=== PATIENT | male | born 1960 | race Caucasian/White ===

== ENCOUNTER → 2018-03-16 14:11 | Outpatient (CLI) | payer BC, SELFPAY ==
--- NOTE | 2018-03-16 14:16 | XR_ITS ---
XR knee RT 3V HISTORY: ITS.REASON: Right knee pain ORDERING PHYSICIAN: RIKY Acuña PATIENT AGE: 57 years COMPARISON: None FINDINGS: No fracture or dislocation. No lytic or blastic change. Normal mineralization. There is decrease in joint space medially with mild osteophyte formation. Minimal spurring is present along the posterior patella. A small bone island involves the lateral femoral condyle. 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
[2018-03-16 15:05] LABS: Basophils % 0.6 % (0.1-2.0); Eosinophils # 0.1 K/mm3 (0.0-0.4); Eosinophils % 1.4 % (0.1-12.0); Hemoglobin 15.6 g/dL (14.1-18.0); Lymphocytes # 1.3 K/mm3 (0.7-4.5); Lymphocytes % 20.5 K/mm3 (10-50); Mean Corpuscular HGB Conc 33.2 g/dL (31.8-35.4); Mean Corpuscular Hemoglobin 31.5 pg (27.0-31.2); Mean Corpuscular Volume 94.9 fl (80-94); Mean Platelet Volume 8.1 fl (7.4-10.4); Monocytes # 0.4 K/mm3 (0.1-1.0); Monocytes % 6.3 % (1.7-9.3); Neutrophils # 4.4 K/mm3 (1.8-7.8); Neutrophils % 71.1 % (37.0-80.0); Platelet Count 220 K/mm3 (142-424); Red Blood Count 4.95 M/mm3 (4.60-6.20); Red Cell Distribution Width 13.5 % (11.5-17.5); White Blood Count 6.2 K/mm3 (4.8-10.8)
[2018-03-16 15:31] LABS: Alanine Aminotransferase 28 U/L (12-78); Albumin Level 3.9 gm/dL (3.4-5.0); Albumin/Globulin Ratio 1.1 (1.1-1.8); Alkaline Phosphatase 76 U/L (46-116); Anion Gap 11.7 mEq/L (5-15); Aspartate Amino Transferase 12 U/L (15-37); Bilirubin,Total 0.3 mg/dL (0.2-1.0); Blood Urea Nitrogen 21 mg/dL (7-18); C-Reactive Protein 3.2 mg/L (0.0-0.9); Calcium 9.2 mg/dL (8.5-10.1); Carbon Dioxide 29 mmol/L (21.0-32.0); Chloride 103 mmol/L (98-107); Creatinine,Serum 1.47 mg/dL (0.70-1.30); Estimated Glomerular Filt Rate 49 ml/min (>60); GFR (African American) 60 ML/MIN (>60); Globulin 3.7 gm/dl (1.3-3.2); Glucose 83 mg/dL (74-106); Potassium 4.7 mmoL/L (3.5-5.1); Sodium 139 mmol/L (136-145); Total Protein,Serum 7.6 gm/dL (6.4-8.2); Uric Acid 6.1 mg/dL (2.6-7.2)
[2018-03-16 16:18] LABS: Erythrocyte Sedimentation Rate 31 mm/hr (0-20)
== END ==
PROVIDERS: PCP Physician Assistant; Visit Provider Physician Assistant
DX: M25.561 Pain in right knee (principal)
CPT/HCPCS: 36415; 73562; 80053; 84550; 85025; 85651; 86140

== ENCOUNTER → 2019-08-15 11:34 | Outpatient (CLI) | payer BC, SELFPAY ==
--- NOTE | 2019-08-15 11:39 | XR_ITS ---
PROCEDURE: XR LUMBAR SPINE MIN 4V CLINICAL INDICATION: Low back pain radiating down left leg COMPARISON: LS5 LUMBAR SPINE 5 VIEWS from 07/20/2016 FINDINGS: There is normal curvature and alignment. All lumbar vertebrae appear intact and disc spaces are well maintained throughout. There are mild hypertrophic facet changes at the L4-5 and L5-S1 levels. The SI joints appear normal. IMPRESSION: Essentially unremarkable study other than very minimal hypertrophic facet changes as noted Dictated by: Dr. Ayush Hanna MD 08/15/2019 11:[address] Ayush Hanna MD in [place] 08/15/2019 11:58
== END ==
PROVIDERS: PCP Physician Assistant; Visit Provider Physician Assistant
DX: M79.605 Pain in left leg (principal); R20.0 Anesthesia of skin; R20.2 Paresthesia of skin
CPT/HCPCS: 72110

== ENCOUNTER 2019-09-12 11:00 | Outpatient (RCR) | payer BC, SELFPAY ==
--- NOTE | 2019-08-29 14:03 | HMH.PTOPEV ---
PT Outpatient Evaluation Rehab PT Outpatient Evaluation Start: 08/29/19 12:48 Freq: Status: Active Protocol: Document 08/29/19 13:49 PHORKONG (Rec: 08/29/19 14:02 PHORNE [id number]) Electronically Signed By Ye Ruvalcaba, PT 08/29/19 13:49 Outpatient Therapy Subjective History Subjective History Pt is 58 yowm who presents witn increased L low back and L LE pain, worse x ~ 1 mo. He reports chronic LBP, but this is worse than he has ever experienced with significant L LE numbness and tingling throughout and in toes 1-3. He reports pain is worse at night and frequently wakes him while sleeping. He had X-ray performed which was unremarkable. He reports PMH of anxiety, depression, kidney stones, and HTN. Chief Complaint Pain,Spasms,Stiff Symptom Type Ache,Sharp,Burning,Numbness, Tingling,Shooting Symptoms Relieved By Heat Symptoms Aggravated By Standing,Bending/Stooping, Lifting Prior Functional Limitations Lifting Current Functional Limitations Lifting,Driving,Sleeping, Recreation Activity,Walking, Bending/Stooping Symptom Description Constant but Variable Level of pain today (0-10) 5 Pain scale - at its worst (0-10) 9 Lumbopelvic Eval Palapation tenderness bilateral lumbar spinal tenderness Yes paraspinal tenderness Yes Lumbar/Sacral Palpation Findings Tenderness Accessory Movement L-spine Vertebrae Accessory Movements Central P/A [place] that Elicit Symptoms L2 bilateral L3 bilateral L4 bilateral L5 bilateral S1 bilateral Range of Motion Lumbar Spine Active Flexion Range of 0-65 Motion (degrees) Lumbar Spine Active Extension Range of 0-5 Motion (degrees) Left Lumbar Spine Lateral Flexion Active 0-10 Range of Motion (degrees) Right Lumbar Spine Lateral Flexion 0-5 Active Range of Motion (degrees) Lumbar Spine ROM Limitations Soft Tissue Tightness,Pain Manual Muscle Test Bilateral Knee Extension Strength Grade 5 Normal Knee Flexion Strength Grade 5 Normal Hip Flexion Strength Grade 5 Normal Hip Abduction Strength Grade 5 Normal Hip
== END 2019-09-12 11:05 | disposition home or self-care (01) ==
LOC: PT 11:00
PROVIDERS: PCP Physician Assistant; Visit Provider Physician Assistant
DX: M54.5 Low back pain (principal); R20.0 Anesthesia of skin; R20.2 Paresthesia of skin
CPT/HCPCS: 97010; 97012; 97014; 97035; 97110; 97163; G0283

== ENCOUNTER 2020-04-20 11:44 | Emergency (ER) | payer BC, SELFPAY ==
[2020-04-20 11:47] VITALS: BP 141/77; PULSE 105; RESP 18; TEMP 37.1; O2SAT 100; BMI 29.8
--- NOTE | 2020-04-20 12:16 | HMH.EDNVD ---
ED Disposition Clinical Impression: Pancreatic cyst, Nausea vomiting and diarrhea Disposition: Home, Self-Care Condition on Discharge: Good Instructions: DI for Vomiting -- Adult Prescriptions: Ondansetron [Zofran 4mg ODT] 4 mg PO Q6 PRN #10 tab.rapdis PRN Reason: Nausea Prescription Printed Referrals: Roseanne Cedeño PA [Primary Care Provider] - - Critical Care Critical Care Time: No Attestation: On 04/20/20, the high probability of a clinically significant, sudden or life threatening deterioration of the following system(s) required my full and direct attention, intervention and personal management. The time I documented below is in addition to time spent performing reported procedures but includes the following listed in this critical care notation. Medical Decision Making - Medical Records Medical records reviewed: Yes: I reviewed the patient's medical records. - Alejandro Inquiry Pt receiving controlled substance: No Vital Signs: 04/20/20 11:47 Temperature 98.8 F Temperature Source Oral Pulse Rate [Left Radial] 105 H Respiratory Rate 18 Blood Pressure [Right Arm] 141/77 H Blood Pressure Mean [Right Arm] 98 Blood Pressure Source [Right Arm] Automatic Cuff Blood Pressure Position [Right Arm] Sitting 02 Sat by Pulse Oximetry 100 Oxygen Delivery Method Room Air - Lab Data Lab Results 04/20/20 12:40: WBC 5.7, RBC 3.29 L, Hgb 11.1 L, Hct 32.8 L, MCV 99.9 H, MCH 33.8 H, MCHC 33.8, RDW 13.4, Plt Count 199, MPV 7.9, Neut % (Auto) 79.8, Lymph % (Auto) 11.2, [place] % (Auto) 6.0, Eos % (Auto) 2.7, Baso % (Auto) 0.3, Neut # (Auto) 4.5, Lymph # (Auto) 0.6 L, [place] # (Auto) 0.3, Eos # (Auto) 0.2, Baso # (Auto) 0.0 04/20/20 12:40: Sodium 141, Potassium 4.4, Chloride 100, Carbon Dioxide 32 H, Anion Gap 13.4, BUN 25 H, Creatinine 1.60 H, Estimated Creat Clear 69, Estimated GFR 44 L, Est GFR ( Amer) 54 L, Glucose 134 H, Calcium 10.0, Total Bilirubin 0.7, AST 24, ALT 23, Alkaline Phosphatase 68, Total Protein 7.7, Albumin 4.4, Globulin 3.3 H, Albumin/Globulin Ratio 1.3, Lipase 63 04/20/20 13:08: Urine Color Yellow, Urine Appearance Clear, Urine pH 6.0, Ur Specific [place] 1.025, Urine Protein Trace, Urine Glucose (UA) Negative, Urine Ketones Negative, Urine Blood Trace-l, Urine Nitrate Negative, Urine Bilirubin Negative, Urine Urobilinogen 0.2, Ur Leukocyte Esterase Negative, Urine RBC Occasional, Urine WBC 3-5, Ur Squamous Epith Cells Occasional, Urine Bacteria None, Hyaline Casts 5-10 Result diagrams: 04/20/20 12:40 04/20/20 12:40 Orders (Tests/Meds): ED MEDICATIONS Discontinued Medications Generic Name Dose Route Start Last Admin Trade Name Freq PRN Reason Stop Dose Admin Sodium Chloride 1,000 mls @ 999 mls/hr 04/20/20 12:15 04/20/20 12:42 Sod Chlor 0.9% 1000ml Bag IV 04/20/20 13:15 999 mls/hr .Q1H1M YANDY Administration Ondansetron HCl 4 mg 04/20/20 12:15 04/20/20 12:41 Zofran 4mg/2ml Vial IV 04/20/20 12:16 4 mg ONCE ONE Administration ORDERS Category Date Time Status CT abdomen pelvis wo con Stat Cat Scan 04/20/20 13:11 Taken - CT Data CT Scan: Abdomen, Pelvis Time Received: 14:46 Medical Decision Narrative: Patient with reassuring labs with no significant signs of anemia or metabolic derangement. No signs of biliary obstruction or elevated lipase that would suggest pancreatitis. CT scan of the abdomen/pelvis shows no obstruction, but does show a cystic structure at the head of the pancreas. This may have caused his vomiting, though it has improved in the emergency department as he has not vomited while here. Tolerating p.o. and discharged home to follow-up outpatient with his primary care provider concerning the pancreatic cyst. Nausea/Vomiting/Diarrhea HPI - General Chief complaint: Nausea/Vomiting/Diarrhea Stated complaint: Vomiting Diarrhea Time Seen by Provider: 04/20/20 12:16 Mode of Arrival: Ambulatory Limitations: No Limitations [place]
[2020-04-20 12:50] LABS: Basophils % 0.3 % (0.1-2.0); Eosinophils # 0.2 K/mm3 (0.0-0.4); Eosinophils % 2.7 % (0.1-12.0); Hematocrit 32.8 % (42.0-52.0); Hemoglobin 11.1 g/dL (14.1-18.0); Lymphocytes # 0.6 K/mm3 (0.7-4.5); Lymphocytes % 11.2 % (10-50); Mean Corpuscular HGB Conc 33.8 g/dL (31.8-35.4); Mean Corpuscular Hemoglobin 33.8 pg (27.0-31.2); Mean Corpuscular Volume 99.9 fl (80-94); Mean Platelet Volume 7.9 fl (7.4-10.4); Monocytes # 0.3 K/mm3 (0.1-1.0); Neutrophils # 4.5 K/mm3 (1.8-7.8); Neutrophils % 79.8 % (37.0-80.0); Platelet Count 199 K/mm3 (142-424); Red Blood Count 3.29 M/mm3 (4.60-6.20); Red Cell Distribution Width 13.4 % (11.5-17.5); White Blood Count 5.7 K/mm3 (4.8-10.8)
[2020-04-20 12:52] LABS: Chloride 100 mmol/L (98-107); Sodium 141 mmol/L (136-145)
[2020-04-20 12:53] LABS: Potassium 4.4 mmoL/L (3.5-5.1)
[2020-04-20 12:55] LABS: Alanine Aminotransferase 23 U/L (12-78); Alkaline Phosphatase 68 U/L (38-126); Anion Gap 13.4 mEq/L (5-15); Aspartate Amino Transferase 24 U/L (17-59); Bilirubin,Total 0.7 mg/dl (0.2-1.3); Blood Urea Nitrogen 25 mg/dl (9-20); Carbon Dioxide 32 mmol/L (22.0-30.0); Creatinine Clearance Estimated 69 mL/min (50-200); Estimated Glomerular Filt Rate 44 ml/min (>60); GFR (African American) 54 ML/MIN (>60); Lipase 63 U/L (23-300)
[2020-04-20 12:56] LABS: Albumin Level 4.4 g/dl (3.5-5.0); Albumin/Globulin Ratio 1.3 (1.1-1.8); Globulin 3.3 g/dL (1.3-3.2); Glucose 134 mg/dl (74-100); Total Protein,Serum 7.7 g/dl (6.3-8.2)
[2020-04-20 13:10] LABS: Microscopic, Urine URINE MICROSCOPIC (MICROSCOPIC)
[2020-04-20 13:11] LABS: Appearance,Urine CLEAR (Clear); Bilirubin,Urine Negative (Negative); Blood, Urine TRACE-L (Negative); Color,Urine YELLOW (Yellow); Glucose,Urine (UA) Negative (Negative); Ketones,Urine Negative (Negative); Leukocyte Esterase,Urine Negative (Negative); Nitrate,Urine Negative (Negative); Protein,Urine TRACE (Negative); Specific Gravity, Urine 1.025 (1.005-1.030); Urobilinogen,Urine 0.2 EU/dl (0.2)
--- NOTE | 2020-04-20 13:11 | CT_ITS ---
PROCEDURE: CT ABDOMEN PELVIS WO CON CLINICAL INDICATION: N/V/D Nausea, vomiting, diarrhea COMPARISON: No exams were available for comparison TECHNIQUE: Axial images obtained with sagittal and coronal reformats. All CT scans at the facility use one or more dose reduction, viz: automated exposure control, ma/kV adjustment per patient size (including targeted exams where dose is matched to indication, i.e. head), or iterative reconstruction technique. FINDINGS: LOWER THORAX: No acute finding ABDOMEN & PELVIS: The liver, spleen, adrenal glands, are unremarkable. There is a nonobstructing 2 mm stone in the lower pole of the right kidney. There are 2 cystic lesions of the pancreas 1 in the region the pancreatic head at 2 cm and 1 in the region of the pancreatic tail at 1.7 cm. No intestinal obstruction or free air. No evidence of appendicitis. No evidence of diverticulitis. No acute bony anomalies. There is a small lucent lesion within the left ilium with sclerotic margin. This measures approximately 5 mm and has a benign appearance. IMPRESSION: 1. There are 2 cystic lesions of the pancreas 1 in the tail and 1 in the head measuring 1.7 and 2 cm respectively. Differential diagnosis includes pancreatic cyst, pancreatic pseudocyst, or pancreatic cystic neoplasm. MRI without and with contrast enhancement and with MRCP may provide further evaluation for characterization. 2. Nonobstructing right nephrolithiasis. 3. Otherwise negative Dictated by: Johnnie Torres MD 04/20/2020 16:11 Johnnie Torres MD in [place] 04/20/2020 16:11
[2020-04-20 13:16] LABS: RBC,Urine Occasional #/hpf (0-3); Squamous Epithelial Cell,Urine Occasional #/hpf (0-5)
[2020-04-20 15:00] VITALS: BP 135/87; PULSE 88; RESP 18; TEMP 37.1; O2SAT 100
== END 2020-04-20 15:01 | disposition home or self-care (01) ==
PROVIDERS: Emergency Provider Emergency Medicine; PCP Physician Assistant
DX: K86.2 Cyst of pancreas (principal); F41.8 Other specified anxiety disorders; I10 Essential (primary) hypertension; K21.9 Gastro-esophageal reflux disease without esophagitis; Z87.442 Personal history of urinary calculi; Z79.899 Other long term (current) drug therapy
CPT/HCPCS: 74176; 80053; 81001; 83690; 85025; 96365; 96375; 99283; J2405

== ENCOUNTER → 2020-06-03 11:16 | Outpatient (CLI) | payer BC, SELFPAY ==
[2020-06-03 12:19] LABS: Anion Gap 12.5 mEq/L (5-15); Blood Urea Nitrogen 13 mg/dl (9-20); Calcium 10.3 mg/dl (8.4-10.2); Carbon Dioxide 31 mmol/L (22.0-30.0); Chloride 102 mmol/L (98-107); Estimated Glomerular Filt Rate 68 ml/min (>60); GFR (African American) 83 ML/MIN (>60); Glucose 127 mg/dl (74-100); Potassium 4.5 mmoL/L (3.5-5.1); Sodium 141 mmol/L (136-145)
== END ==
PROVIDERS: Visit Provider Physician Assistant
DX: Z01.818 Encounter for other preprocedural examination (principal); R11.2 Nausea with vomiting, unspecified
CPT/HCPCS: 36415; 80048

== ENCOUNTER → 2020-06-04 09:16 | Outpatient (CLI) | payer BC, SELFPAY ==
--- NOTE | 2020-06-04 09:17 | MR_ITS ---
PROCEDURE: MR ABDOMEN WO/W CON CLINICAL INDICATION: epigastric pain, pancreatic cyst vs neoplasm CT nausea and vomiting. abnormal ct scan 04-20-20. COMPARISON: CT CT ABDOMEN PELVIS WO CON from 04/20/2020 TECHNIQUE: Routine multiplanar multi echo sequences are performed without and with gadolinium enhancement with MRCP images. FINDINGS: Exam somewhat limited secondary to motion artifact. There are multiple cystic lesions the pancreas including a 1.6 cm cyst at the pancreatic tail and a 2 cm cyst at the head of the pancreas. There are several other smaller cyst located in the body of the pancreas which are less than 1 cm. MRCP images show the cyst to appear to communicate with the main pancreatic duct. The main pancreatic duct does not appear dilated but is slightly irregular in nature. Although the definition is somewhat limited secondary, the cysts do not appear to have any internal septations or wall thickening. No contrast enhancement of the cyst. MRCP images show no ductal dilatation. No evidence of cholelithiasis or choledocholithiasis. There is a small cystic area at the distal aspect of the common bile duct laterally and may represent a duodenal diverticulum. This measures approximately 1 cm. Cannot separate the larger cyst in the pancreatic head region from the pancreatic duct. There are at least 3 small hepatic cyst. IMPRESSION: 1. There are multiple pancreatic cysts noted as described above. These do not enhance and do not appear to contain internal septations or wall thickening. Differential diagnosis would include simple pancreatic cysts, pseudo cyst, branch duct IPMNs. The larger lesion in the head of the pancreas could represent an IPMN. Combination of the above etiologies is also consideration. Suggest 3 month follow-up to confirm short term stability. GI consult may also be in order. Close follow-up is suggested. No solid pancreatic lesions apparent. 2. At least 3 small hepatic cysts are also noted. Dictated by: Johnnie Torres MD 06/11/2020 09:53 Johnnie Torres MD in [place] 06/11/2020 09:53
== END ==
PROVIDERS: PCP Physician Assistant; Visit Provider Physician Assistant
DX: K86.2 Cyst of pancreas (principal); K86.9 Disease of pancreas, unspecified; R10.13 Epigastric pain
CPT/HCPCS: 74183; 76376; A9576

== ENCOUNTER 2020-07-17 09:30 | Outpatient (CLI) | payer BC, SELFPAY ==
[2020-07-17 09:36] VITALS: BMI 28.5
[2020-07-17 09:48] VITALS: BP 115/49; PULSE 68; RESP 18; TEMP 36.6; O2SAT 99
[2020-07-17 09:57] LABS: Microscopic, Urine URINE MICROSCOPIC (MICROSCOPIC)
[2020-07-17 10:01] LABS: Appearance,Urine CLEAR (Clear); Bilirubin,Urine Negative (Negative); Blood, Urine Negative (Negative); Color,Urine YELLOW (Yellow); Glucose,Urine (UA) TRACE (Negative); Ketones,Urine Negative (Negative); Leukocyte Esterase,Urine Negative (Negative); Nitrate,Urine Negative (Negative); PH,Urine 5.5 (5.0-8.5); Protein,Urine TRACE (Negative); Specific Gravity, Urine >= 1.030 (1.005-1.030); Urobilinogen,Urine 0.2 EU/dl (0.2)
[2020-07-17 10:07] LABS: Chloride 97 mmol/L (98-107); Sodium 138 mmol/L (136-145)
[2020-07-17 10:08] VITALS: BP 119/52; PULSE 69; RESP 18; O2SAT 99
[2020-07-17 10:08] LABS: Potassium 4.6 mmoL/L (3.5-5.1)
[2020-07-17 10:10] LABS: Alanine Aminotransferase 33 U/L (12-78); Alkaline Phosphatase 84 U/L (38-126); Amylase 54 U/L (30-110); Anion Gap 13.6 mEq/L (5-15); Aspartate Amino Transferase 38 U/L (17-59); Bilirubin,Total 0.9 mg/dl (0.2-1.3); Blood Urea Nitrogen 43 mg/dl (9-20); Carbon Dioxide 32 mmol/L (22.0-30.0); Creatinine Clearance Estimated 32 mL/min (50-200); Estimated Glomerular Filt Rate 19 ml/min (>60); GFR (African American) 23 ML/MIN (>60)
[2020-07-17 10:11] LABS: Albumin Level 4.8 g/dl (3.5-5.0); Albumin/Globulin Ratio 1.5 (1.1-1.8); Calcium 9.9 mg/dl (8.4-10.2); Globulin 3.3 g/dL (1.3-3.2); Glucose 140 mg/dl (74-100); Lipase 159 U/L (23-300); Total Protein,Serum 8.1 g/dl (6.3-8.2)
[2020-07-17 10:16] LABS: Basophils % 0.3 % (0.1-2.0); Eosinophils # 0.3 K/mm3 (0.0-0.4); Eosinophils % 2.1 % (0.1-12.0); Hematocrit 41.3 % (42.0-52.0); Hemoglobin 13.8 g/dL (14.1-18.0); Mean Corpuscular HGB Conc 33.4 g/dL (31.8-35.4); Mean Corpuscular Hemoglobin 32.8 pg (27.0-31.2); Mean Corpuscular Volume 98.3 fl (80-94); Mean Platelet Volume 8.6 fl (7.4-10.4); Monocytes # 0.5 K/mm3 (0.1-1.0); Monocytes % 4.3 % (1.7-9.3); Neutrophils # 10.2 K/mm3 (1.8-7.8); Neutrophils % 85.4 % (37.0-80.0); Platelet Count 266 K/mm3 (142-424); White Blood Count 11.9 K/mm3 (4.8-10.8)
[2020-07-17 10:20] VITALS: BP 114/51; PULSE 64; RESP 18; O2SAT 98
[2020-07-17 10:21] LABS: MANUAL DIFFERENTIAL MANUAL DIFFERENTIAL (MANUAL DIFF)
--- NOTE | 2020-07-17 10:31 | PC.NURSE ---
07/17/20-1010-cmp lab results noted and pt's creatinine 3.30, which is elevated. Spoke with Roseanne Cedeño APRN, she reports that this is abnormal for this pt and that she wants him sent to the ER for a full workup. Report called to Brielle Garcia RN in the ER and updated her on care provided, medications given, and pt condition. Explained change in poc to pt, pt agreeable to this and pt transferred to ER, rm 5 per wc with Darrion CASH.
[2020-07-17 10:38] LABS: Eosinophils % 2 % (0-3); Lymphocytes % 10 % (10-50); Monocytes % 8 % (2-9); Neutrophils % 80 % (42-76); Platelet Estimate Normal; RBC Morphology Normal; Total Cells Counted 100
[2020-07-17 10:49] LABS: RBC,Urine Occasional #/hpf (0-3)
[2020-07-17 10:50] LABS: Squamous Epithelial Cell,Urine Occasional #/hpf (0-5)
== END 2020-07-17 10:20 | disposition other institution (70) ==
LOC: INF 09:32
PROVIDERS: PCP Physician Assistant; Visit Provider Physician Assistant
DX: E86.0 Dehydration (principal)
CPT/HCPCS: 80053; 81001; 82150; 83690; 85007; 85025; J1956; J2405

== ENCOUNTER 2020-07-17 10:32 | Observation (INO) | payer BC, SELFPAY ==
[2020-07-17] VITALS (10 sets, daily range): BP systolic 102–132; BP diastolic 48–86; PULSE 54–82; RESP 15–20; TEMP 36.7–36.9; O2SAT 92–97; BMI 28.5; BMI 28.9
--- NOTE | 2020-07-17 10:53 | CT_ITS ---
PROCEDURE: CT ABDOMEN PELVIS WO CON CLINICAL INDICATION: abdominal pain, pancreatic cysts Abdominal pain with nausea vomiting and diarrhea COMPARISON: CT CT ABDOMEN PELVIS WO CON from 04/20/2020 MR MR ABDOMEN WO/W CON from 06/04/2020 TECHNIQUE: Axial images obtained with sagittal and coronal reformats. All CT scans at the facility use one or more dose reduction, viz: automated exposure control, ma/kV adjustment per patient size (including targeted exams where dose is matched to indication, i.e. head), or iterative reconstruction technique. FINDINGS: LOWER THORAX: There are mild atelectatic changes in the left lung base ABDOMEN & PELVIS: There are few subtle areas of decreased attenuation within the the with right and left hepatic lobes possibly due to hepatic cysts. Consider follow-up to confirm stability. Gallbladder, spleen, adrenal glands, and kidneys show no acute finding. Isodense lesions once again noted at the pancreatic tail rounded in nature at 2 cm and in the head of the pancreas at 1.8 cm consistent with cystic lesions of the pancreas which appear similar when compared to 06/04/2020 MRI. No intestinal obstruction or free air. No evidence of appendicitis or diverticulitis. No pelvic mass or abnormal fluid collection. There are mild degenerative changes of the lumbar spine and hips. IMPRESSION: 1. No acute finding. 2. No change in the pancreatic cystic lesions. No evidence of acute pancreatitis. 3. Scattered subtle hypodensities of the liver which may represent hepatic cysts Dictated by: Johnnie Torres MD 07/17/2020 11:55 Johnnie Torres MD in [place] 07/17/2020 11:55
--- NOTE | 2020-07-17 10:54 | XR_ITS ---
PROCEDURE: XR CHEST PORTABLE CLINICAL HISTORY: soa Shortness of air COMPARISON: No exams were available for comparison FINDINGS: The cardiomediastinal silhouette and pulmonary vascularity are within normal limits. The lungs are clear without infiltrates, suspicious nodules, or pleural effusions. There is calcified granuloma in the left upper lobe No acute bony abnormalities. IMPRESSION: No acute findings. Dictated by: Johnnie Torres MD 07/17/2020 15:29 Johnnie Torres MD in [place] 07/17/2020 15:29
--- NOTE | 2020-07-17 10:55 | PC.NURSE ---
spo2 88-89% on ra while resting in stretcher. dr hernandez notified. new orders received.
--- NOTE | 2020-07-17 10:56 | HMH.EDGENADL ---
ED Disposition Clinical Impression: Acute renal failure Disposition: Admitted As Inpatient Condition on Discharge: Good - Critical Care Critical Care Time: No Attestation: On 07/17/20, the high probability of a clinically significant, sudden or life threatening deterioration of the following system(s) required my full and direct attention, intervention and personal management. The time I documented below is in addition to time spent performing reported procedures but includes the following listed in this critical care notation. Medical Decision Making - Medical Records Medical records reviewed: Yes: I reviewed the patient's medical records. - Alejandro Inquiry Pt receiving controlled substance: No Vital Signs: 07/17/20 10:32 07/17/20 11:08 07/17/20 12:59 Temperature 98.1 F Temperature Source Oral Pulse Rate [Right Radial] 72 80 82 Respiratory Rate 17 18 20 Blood Pressure [Right Arm] 123/62 102/54 L 132/86 Blood Pressure Mean [Right Arm] 82 70 101 Blood Pressure Source [Right Arm] Automatic Cuff Automatic Cuff Blood Pressure Position [Right Arm] Sitting Sitting 02 Sat by Pulse Oximetry 94 L 93 L 97 Oxygen Delivery Method Room Air Room Air Room Air - Lab Data Lab Results 07/17/20 12:30: Sodium 137, Potassium 4.7, Chloride 100, Carbon Dioxide 30, Anion Gap 11.7, BUN 43 H, Creatinine 3.00 H, Estimated Creat Clear 35, Estimated GFR 21 L, Est GFR ( Amer) 26 L, Glucose 120 H, Calcium 8.9 D Result diagrams: 07/17/20 12:30 Orders (Tests/Meds): ED MEDICATIONS Generic Name Dose Route Start Last Admin Trade Name Freq PRN Reason Stop Dose Admin Acetaminophen 650 mg 07/17/20 13:06 Acetaminophen 325mg Tab PO 08/16/20 13:05 Q4HP PRN As Needed for Fever or Pain Sodium Chloride 1,000 mls @ 999 mls/hr 07/17/20 13:00 Sod Chlor 0.9% 1000ml Bag IV 07/17/20 14:00 .Q1H1M YANDY Sodium Chloride 1,000 mls @ 125 mls/hr 07/17/20 13:15 Sod Chlor 0.9% 1000ml Bag IV 08/16/20 13:14 .Q8H YANDY Ondansetron HCl 4 mg 07/17/20 13:06 Ondansetron 4mg/2ml Vial IV 08/16/20 13:05 Q8HP PRN Nausea ORDERS Category Date Time Status XR chest portable Stat Exams 07/17/20 10:54 Taken Basic Metabolic Panel AMLAB Lab 07/18/20 06:00 Ordered Covid-19 IgG/IgM ([facility]) Stat Lab 07/17/20 09:40 Received Medical Decision Narrative: Patient presents with nonspecific abdominal pain and hx of pancreatitic cysts. Has had n/v, not acute abdomen on exam, ct a/p ordered, Labs are ordered. Levaquin was started per recommendation of primary care physician and IV fluids have been given as well. Chest x-ray was obtained as well. Doubt pulmonary embolism or acute myocardial infarction based on symptoms. CT abdomen pelvis shows no evidence of diverticulitis or abdominal infection. Discontinued Levaquin as white blood cell count was normal as well. IV fluid bolus given and creatinine did improve to 3.0 however still has acute renal failure. Discussed case with Dr. Krista douglas and Ravinder and recommend admission for continued IV fluids. Another bolus of IV fluids was given and drip was started as well. General Adult HPI - General Chief complaint: Nausea/Vomiting/Diarrhea Stated complaint: vomiting Time Seen by Provider: 07/17/20 13:00 Mode of Arrival: Wheelchair Limitations: No Limitations Description of Symptoms (Recalled from ER Triage Doc. by RN): pt reports to ed from infusion. pt was sent to infusion for fluids and levaquin iv ordered by ravinder donato. lab work done due to c/o vomiting/nausea. pt creatinine found to be 3.3. pt sent to ed for further evaluation. - History of Present Illness HPI narrative: 59 yo M with hx pancreatic cysts presents with abdominal pain and n/v for a few weeks. He has no hematemesis or diarrhea. No fever or chills. He says he has not been able to eat or drink. He saw his PCP this am who sent him to the ED for dehydration, creatinine was 3.3, las
--- NOTE | 2020-07-17 12:30 | PC.NURSE ---
bmp drawn and to lab for resulting
[2020-07-17 12:40] LABS: Chloride 100 mmol/L (98-107); Potassium 4.7 mmoL/L (3.5-5.1); Sodium 137 mmol/L (136-145)
[2020-07-17 12:43] LABS: Anion Gap 11.7 mEq/L (5-15); Blood Urea Nitrogen 43 mg/dl (9-20); Carbon Dioxide 30 mmol/L (22.0-30.0); Creatinine Clearance Estimated 35 mL/min (50-200); Estimated Glomerular Filt Rate 21 ml/min (>60); GFR (African American) 26 ML/MIN (>60); Glucose 120 mg/dl (74-100)
[2020-07-17 12:44] LABS: Calcium 8.9 mg/dl (8.4-10.2)
--- NOTE | 2020-07-17 12:59 | PC.NURSE ---
Dr Chester speaking with Roseanne LAN
[2020-07-17 13:24] LABS: Coronavirus 19 IgG Antibody Negative (Negative); Coronavirus 19 IgM Antibody Negative (Negative)
--- NOTE | 2020-07-17 14:04 | PC.NURSE ---
report given to charisma marks from second floor at this time.
--- NOTE | 2020-07-17 14:16 | HMH.PHAINT ---
home medication reconciliation completed using list from Jordy Castellon
--- NOTE | 2020-07-17 14:22 | HMH.PHAVTE ---
[facility] VTE Monitoring - Patient Demographics Admission date: 07/17/20 Report Date: 07/17/20 Time: 14:22 Allergies/Adverse Reactions: Patient Allergies prednisone Allergy (Intermediate, Verified 07/17/20 10:36) makes mouth numb Height: 1.83 m Weight: 95.254 kg Patient Problems: Current Active Problems Acute renal failure (Acute) - VTE Risk Labs: VTE Related Lab Results BUN 43 mg/dl (9-20) H 07/17/20 12:30 Creatinine 3.00 mg/dl (0.66-1.25) H 07/17/20 12:30 Estimated Creat Clear 35 mL/min (50-200) 07/17/20 12:30 Clinical Trial Participant: No - Prophylaxis VTE Prophylaxis Ordered?: Yes Types of VTE Prophylaxis: TEDS Knee High
--- NOTE | 2020-07-17 17:22 | PC.NURSE ---
A&OX4. PT HAS TOLERATED RA THUS FAR. RESPIRATIONS REGULAR AND UNLABORED. LUNG SOUNDS BILATERALLY CLEAR. NO COUGH NOTED. NO EDEMA NOTED. ACTIVE BOWEL SOUNDS HEARD IN ALL 4 QUADRANTS. SOFT AND NONTENDER ABDOMEN. LAST BM REPORTED THIS AM. HAND DAMAGE INSIDE ADJUSTER EQUAL. +2 PULSES NOTED THROUGHOUT. PT HAS HAD NO REPORTS OF PAIN, SOB, OR NAUSEA THUS FAR. PT HAS REMAINED FEBRILE. PT REFUSED TEDS. NS INFUSING AT 125ML/HR. PT IS CURRENTLY LYING IN BED WITH CALL LIGHT WITHIN REACH. BED IN LOWEST POSITION. VSS. WILL CONTINUE TO MONITOR.
--- NOTE | 2020-07-17 20:08 | HMH.HP ---
*Admission Date: 07/17/20 *Chief complaint: vomiting *History of present illness: this pt has had vomiting yo M with hx pancreatic cysts presents with abdominal pain and n/v for a few weeks. He has no hematemesis or diarrhea. No fever or chills. He says he has not been able to eat or drink. He saw his PCP this am who sent him to the ED for dehydration, creatinine was 3.3, last baseline was normal. He has no other complaints.he had been seen by pcp and attempted op treatment eports to ed from infusion. pt was sent to infusion for fluids and levaquin iv ordered by ravinder donato. lab work done due to c/o vomiting/nausea. pt creatinine found to be 3.3. pt sent to ed for further evaluation.he was noted to have continued sx and was admitted for eval and treatment [facility] History I have reviewed the patient's past medical history: Yes Medical History: Reports:: Anxiety, Depression, Hypertension, Kidney Stones Denies:: Cancer, Diabetes Mellitus Type 1, Diabetes Mellitus Type 2, MRSA *Have you ever received a pneumonia vaccine?: Yes *Have you received a flu vaccine this season?: Yes Other Surgeries: Yes: Colonoscopy Amputation: No Fractures: No - *Social History Last grade of school completed: High school graduate Smoking Status: Never smoker Alcohol Intake: never Substance Use Type: denies use *Occupational Status:: disabled Housing: house Household Members: significant other *Travel in the last 8 weeks: None - Psychiatric History Pschychiatric History:: Reports:: Anxiety, Depression Family Hx:: No significant family history Review of Systems - Review of Systems Review of systems:: pertinent systems reviewed and negative unless documented below - Constitutional Denies fever(s) - ENT Denies sore throat - *Cardiovascular Denies chest pain - *Respiratory Denies cough - *Gastrointestinal Reports nausea, Reports vomiting - *Genitourinary Denies blood in urine - *Musculoskeletal Denies joint swelling - Integumentary/Breasts Denies rash - *Neurologic Denies abnormal walking, Denies abnormal speech - Psychiatric Denies confusion Meds Home Medications Medication Instructions Recorded Confirmed Type tizanidine 4 mg tablet 4 mg PO TID PRN #90 tab 08/17/18 07/17/20 Rx Gabapentin [Neurontin 800mg Tab] 600 mg PO TID 07/17/20 07/17/20 History Hydrocodone/Acetaminophen 1 each PO Q6HP PRN 07/17/20 07/17/20 History [Hydrocodon-Acetaminophn 10-325] Lisinopril/Hydrochlorothiazide 1 tab PO DAILY 07/17/20 07/17/20 History [Lisinopril-Hctz 10-12.5 mg Tab] Promethazine HCl [Phenergan 25mg 25 mg PO Q6HP PRN 07/17/20 07/17/20 History tab] Allergies Allergy/AdvReac Type Severity Reaction Status Date / Time prednisone Allergy Intermediate makes Verified 07/17/20 10:36 mouth numb Exam Vital signs and Labs for Last 24 Hours: Temp Pulse Resp BP Pulse Ox 98.1 F 57 L 17 111/55 L 96 07/17/20 16:00 07/17/20 16:00 07/17/20 16:00 07/17/20 16:00 07/17/20 16:00 Laboratory Results - last 24 hr 07/17/20 09:40: SARS-CoV-2 IgG Ab (Rapid) Negative, SARS-CoV-2 IgM Ab (Rapid) Negative 07/17/20 12:30: Sodium 137, Potassium 4.7, Chloride 100, Carbon Dioxide 30, Anion Gap 11.7, BUN 43 H, Creatinine 3.00 H, Estimated Creat Clear 35, Estimated GFR 21 L, Est GFR ( Amer) 26 L, Glucose 120 H, Calcium 8.9 D I & O for Last 24 hours: Intake & Output 07/15/20 07/16/20 07/17/20 07/18/20 11:59 11:59 11:59 11:59 Intake Total 1266 / 1266 Balance 1266 / 1266 Weight 210 lb 213 lb 5 oz - Constitutional no acute distress - *Routine HEENT Exam Head: Present: normocephalic Eye: Present: EOMI, PERRL ENT: Present: mucous membranes dry - *Routine Neck Exam Present: supple. Absent: JVD - *Routine Respiratory Exam Present: CTA bilaterally - *Routine Cardiovascular Exam Present: RRR, murmur - *Routine Abdominal Exam Present: soft, tenderness. Absent: distended, rebound
[2020-07-17 22:08] LABS: Basophils % 0.3 % (0.1-2.0); Eosinophils # 0.3 K/mm3 (0.0-0.4); Eosinophils % 4.1 % (0.1-12.0); Hematocrit 40.8 % (42.0-52.0); Hemoglobin 13.5 g/dL (14.1-18.0); Lymphocytes # 1.3 K/mm3 (0.7-4.5); Lymphocytes % 19.4 % (10-50); Mean Corpuscular HGB Conc 33.1 g/dL (31.8-35.4); Mean Corpuscular Hemoglobin 32.7 pg (27.0-31.2); Mean Corpuscular Volume 98.8 fl (80-94); Mean Platelet Volume 8.3 fl (7.4-10.4); Monocytes # 0.4 K/mm3 (0.1-1.0); Monocytes % 6.5 % (1.7-9.3); Neutrophils # 4.8 K/mm3 (1.8-7.8); Neutrophils % 69.9 % (37.0-80.0); Platelet Count 206 K/mm3 (142-424); Red Blood Count 4.13 M/mm3 (4.60-6.20); Red Cell Distribution Width 13.2 % (11.5-17.5); White Blood Count 6.8 K/mm3 (4.8-10.8)
[2020-07-17 22:29] LABS: Chloride 99 mmol/L (98-107); Sodium 138 mmol/L (136-145)
[2020-07-17 22:30] LABS: Potassium 4.6 mmoL/L (3.5-5.1)
[2020-07-17 22:32] LABS: Alanine Aminotransferase 36 U/L (12-78); Albumin Level 4.6 g/dl (3.5-5.0); Alkaline Phosphatase 72 U/L (38-126); Anion Gap 12.6 mEq/L (5-15); Aspartate Amino Transferase 43 U/L (17-59); Bilirubin,Direct 0.3 mg/dl (0.0-0.4); Bilirubin,Indirect 0.4 mg/dL (0.0-0.9); Bilirubin,Total 0.7 mg/dl (0.2-1.3); Bilirubin,Unconjugated 0.3 mg/dL (0.0-1.1); Blood Urea Nitrogen 39 mg/dl (9-20); Calcium 9.1 mg/dl (8.4-10.2); Carbon Dioxide 31 mmol/L (22.0-30.0); Creatinine Clearance Estimated 45 mL/min (50-200); Estimated Glomerular Filt Rate 28 ml/min (>60); GFR (African American) 34 ML/MIN (>60); Glucose 106 mg/dl (74-100); Total Protein,Serum 7.7 g/dl (6.3-8.2)
[2020-07-18 04:00] VITALS: BP 118/62; PULSE 76; RESP 18; TEMP 36.9; O2SAT 97
[2020-07-18 05:25] VITALS: BMI 28.6
--- NOTE | 2020-07-18 05:47 | PC.NURSE ---
pt has rested well t/o shift, does complain this morning of some nausea, treated per MAR, no complaints of SOA or chest pain, VSS
[2020-07-18 08:00] VITALS: BP 143/81; PULSE 56; RESP 16; TEMP 36.5; O2SAT 97
[2020-07-18 08:00] LABS: Chloride 103 mmol/L (98-107); Sodium 138 mmol/L (136-145)
[2020-07-18 08:07] LABS: Blood Urea Nitrogen 32 mg/dl (9-20); Calcium 9.2 mg/dl (8.4-10.2); Carbon Dioxide 32 mmol/L (22.0-30.0); Creatinine Clearance Estimated 63 mL/min (50-200); Estimated Glomerular Filt Rate 41 ml/min (>60); GFR (African American) 50 ML/MIN (>60); Glucose 127 mg/dl (74-100)
[2020-07-18 09:00] VITALS: O2SAT 97
--- NOTE | 2020-07-18 09:22 | HMH.DCSUM ---
General - General Admission date:: 07/17/20 Discharge date: 07/18/20 HPI HPI: this pt has had vomiting yo M with hx pancreatic cysts presents with abdominal pain and n/v for a few weeks. He has no hematemesis or diarrhea. No fever or chills. He says he has not been able to eat or drink. He saw his PCP this am who sent him to the ED for dehydration, creatinine was 3.3, last baseline was normal. He has no other complaints.he had been seen by pcp and attempted op treatment eports to ed from infusion. pt was sent to infusion for fluids and levaquin iv ordered by ravinder donato. lab work done due to c/o vomiting/nausea. pt creatinine found to be 3.3. pt sent to ed for further evaluation.he was noted to have continued sx and was admitted for eval and treatment Hospital Course Hospital Course: Laboratory Tests 07/17/20 07/17/20 07/17/20 09:40 12:30 21:40 WBC 6.8 D RBC 4.13 L Hgb 13.5 L Hct 40.8 L MCV 98.8 H MCH 32.7 H MCHC 33.1 RDW 13.2 Plt Count 206 MPV 8.3 Neut % (Auto) 69.9 Lymph % (Auto) 19.4 [place] % (Auto) 6.5 Eos % (Auto) 4.1 Baso % (Auto) 0.3 Neut # (Auto) 4.8 Lymph # (Auto) 1.3 [place] # (Auto) 0.4 Eos # (Auto) 0.3 Baso # (Auto) 0.0 Sodium 137 Potassium 4.7 Chloride 100 Carbon Dioxide 30 Anion Gap 11.7 BUN 43 H Creatinine 3.00 H Estimated Creat Clear 35 Estimated GFR 21 L Est GFR ( Amer) 26 L Glucose 120 H Calcium 8.9 D Total Bilirubin Direct Bilirubin Conjugated Bilirubin Indirect Bilirubin Unconjugated Bilirubin AST ALT Alkaline Phosphatase Total Protein Albumin SARS-CoV-2 IgG Ab (Rapid) Negative SARS-CoV-2 IgM Ab (Rapid) Negative 07/17/20 07/18/20 21:40 07:32 WBC RBC Hgb Hct MCV MCH MCHC RDW Plt Count MPV Neut % (Auto) Lymph % (Auto) [place] % (Auto) Eos % (Auto) Baso % (Auto) Neut # (Auto) Lymph # (Auto) [place] # (Auto) Eos # (Auto) Baso # (Auto) Sodium 138 138 Potassium 4.6 5.0 Chloride 99 103 Carbon Dioxide 31 H 32 H Anion Gap 12.6 8.0 BUN 39 H 32 H Creatinine 2.40 H 1.70 H D Estimated Creat Clear 45 63 Estimated GFR 28 L 41 L Est GFR ( Amer) 34 L D 50 L D Glucose 106 H 127 H Calcium 9.1 9.2 Total Bilirubin 0.7 Direct Bilirubin 0.3 Conjugated Bilirubin 0.0 Indirect Bilirubin 0.4 Unconjugated Bilirubin 0.3 AST 43 ALT 36 Alkaline Phosphatase 72 Total Protein 7.7 Albumin 4.6 SARS-CoV-2 IgG Ab (Rapid) SARS-CoV-2 IgM Ab (Rapid) ct abd pelvis:FINDINGS: LOWER THORAX: There are mild atelectatic changes in the left lung base ABDOMEN & PELVIS: There are few subtle areas of decreased attenuation within the the with right and left hepatic lobes possibly due to hepatic cysts. Consider follow-up to confirm stability. Gallbladder, spleen, adrenal glands, and kidneys show no acute finding. Isodense lesions once again noted at the pancreatic tail rounded in nature at 2 cm and in the head of the pancreas at 1.8 cm consistent with cystic lesions of the pancreas which appear similar when compared to 06/04/2020 MRI. No intestinal obstruction or free air. No evidence of appendicitis or diverticulitis. No pelvic mass or abnormal fluid collection. There are mild degenerative changes of the lumbar spine and hips. IMPRESSION: 1. No acute finding. 2. No change in the pancreatic cystic lesions. No evidence of acute pancreatitis. 3. Scattered subtle hypodensities of the liver which may represent hepatic cysts chest x ray: no acute findings Today pt states he is feeling better was able to eat breakfast and keep it down. cre 1.7 this am. will dc home with recommendations: -increase fluids -stop lisinopril/htcz -follow up with Ravinder wednesday for repeat bmp on wednesday - zofran for nausea -follow up with Dr. Perdomo as scheduled Obj
== END 2020-07-18 11:58 | disposition home or self-care (01) ==
LOC: ER 10:37 → 2ND 13:16
PROVIDERS: Admitting Provider Emergency Medicine; Emergency Provider Emergency Medicine; Visit Provider Emergency Medicine
DX: N17.9 Acute kidney failure, unspecified (principal); K86.2 Cyst of pancreas; I10 Essential (primary) hypertension
CPT/HCPCS: 36415; 71045; 74176; 80048; 80053; 80076; 81001; 82150; 83690; 85007; 85025; 86328; 96365; 99284; G0378; J1956; J2405

== ENCOUNTER → 2020-07-22 17:29 | Outpatient (CLI) | payer BC, SELFPAY ==
[2020-07-22 20:16] LABS: Anion Gap 10.2 mEq/L (5-15); Blood Urea Nitrogen 14 mg/dl (9-20); Calcium 9.5 mg/dl (8.4-10.2); Carbon Dioxide 30 mmol/L (22.0-30.0); Chloride 105 mmol/L (98-107); Estimated Glomerular Filt Rate 62 ml/min (>60); GFR (African American) 75 ML/MIN (>60); Glucose 105 mg/dl (74-100); Potassium 4.2 mmoL/L (3.5-5.1); Sodium 141 mmol/L (136-145)
== END ==
PROVIDERS: Visit Provider Physician Assistant
DX: N17.9 Acute kidney failure, unspecified (principal)
CPT/HCPCS: 80048

== ENCOUNTER 2020-10-21 21:09 | Observation (INO) | payer BC, SELFPAY ==
[2020-10-21 21:10] VITALS: BP 188/105; PULSE 71; RESP 20; TEMP 36.9; O2SAT 96; BMI 27.8
--- NOTE | 2020-10-21 21:24 | ECG_ITS ---
APPROVED REPORT Exam: Resting ECG HR:71 bpm ECG Measurements Heart Rate 71 AXES [place] 122 P 9 QRSd 94 QRS -5 QT 410 T 20 QTc 445 Conclusion Normal sinus rhythm Normal ECG Electronically signed by : Bobo Britton, 10/22/2020 06:32:47
--- NOTE | 2020-10-21 21:46 | XR_ITS ---
PROCEDURE: XR CHEST 2V CLINICAL HISTORY: HTN L arm pain Hypertension, left arm pain COMPARISON: CR XR CHEST PORTABLE from 07/17/[address] ANGIO NECK from 10/22/2020 FINDINGS: The cardiomediastinal silhouette and pulmonary vascularity are within normal limits. There are low lung volumes with prominence of the bronchovascular markings. No lobar consolidation or collapse. No acute bony abnormalities. IMPRESSION: No acute findings. Dictated by: Johnnie Torres MD 10/22/2020 05:44 Johnnie Torres MD in [place] 10/22/2020 05:44
[2020-10-21 21:55] LABS: Basophils % 0.5 % (0.1-2.0); Eosinophils # 0.2 K/mm3 (0.0-0.4); Eosinophils % 2.4 % (0.1-12.0); Hemoglobin 14.5 g/dL (14.1-18.0); Lymphocytes # 1.5 K/mm3 (0.7-4.5); Lymphocytes % 18.4 % (10-50); Mean Corpuscular Hemoglobin 30.9 pg (27.0-31.2); Mean Corpuscular Volume 93.7 fl (80-94); Monocytes # 0.4 K/mm3 (0.1-1.0); Monocytes % 4.9 % (1.7-9.3); Neutrophils # 6.1 K/mm3 (1.8-7.8); Neutrophils % 73.7 % (37.0-80.0); Platelet Count 218 K/mm3 (142-424); White Blood Count 8.3 K/mm3 (4.8-10.8)
[2020-10-21 22:01] LABS: Chloride 106 mmol/L (98-107); Potassium 4.1 mmoL/L (3.5-5.1); Sodium 142 mmol/L (136-145)
[2020-10-21 22:03] LABS: Alanine Aminotransferase 17 U/L (12-78); Bilirubin,Unconjugated 0.3 mg/dL (0.0-1.1); Blood Urea Nitrogen 9 mg/dl (9-20); Creatinine Clearance Estimated 101 mL/min (50-200); Estimated Glomerular Filt Rate 76 ml/min (>60); GFR (African American) 92 ML/MIN (>60)
[2020-10-21 22:04] LABS: Albumin Level 4.6 g/dl (3.5-5.0); Alkaline Phosphatase 89 U/L (38-126); Anion Gap 11.1 mEq/L (5-15); Aspartate Amino Transferase 28 U/L (17-59); Bilirubin,Direct 0.2 mg/dl (0.0-0.4); Bilirubin,Indirect 0.3 mg/dL (0.0-0.9); Bilirubin,Total 0.5 mg/dl (0.2-1.3); Calcium 9.8 mg/dl (8.4-10.2); Carbon Dioxide 29 mmol/L (22.0-30.0); Glucose 107 mg/dl (74-100); Total Protein,Serum 8.1 g/dl (6.3-8.2)
[2020-10-21 22:09] LABS: C-Reactive Protein 3.2 mg/L (0-4)
[2020-10-21 22:21] LABS: Procalcitonin 0.037 ng/mL (0.0-2.0)
[2020-10-21 22:22] LABS: Troponin I 0.01 ng/ml (0.00-0.034)
[2020-10-21 22:29] LABS: Erythrocyte Sedimentation Rate 57 mm/hr (0-20)
[2020-10-21 23:07] VITALS: BP 203/123; PULSE 78; RESP 16; O2SAT 95
[2020-10-21 23:43] VITALS: BP 199/114; PULSE 70; RESP 16; O2SAT 98
[2020-10-22] VITALS (26 sets, daily range): BP systolic 101–194; BP diastolic 55–103; PULSE 56–93; RESP 16–20; TEMP 36.4–37.4; O2SAT 93–98; BMI 29.7
--- NOTE | 2020-10-22 | IR_ITS ---
APPROVED REPORT Patient Location: Inpatient [facility] In[facility] Heating Equipment: ELÍAS Roe RT (R) PROCEDURES Left heart catheterization Left ventriculogram Selective coronary angiogram INDICATION Ventricular tachycardia Informed consent was obtained prior to the procedure. COMPLICATIONS None Estimated Blood Loss: Less than 10 mls TECHNIQUE One percent lidocaine used to anesthetize the right anterior aspect of the wrist. The right radial artery was accessed via the Seldinger technique. A 6 Bulgarian sheath was placed in the right radial artery. 2.5 mg of verapamil, 800 mcg of nitroglycerin, 1mg Lidocaine and 5000 U Heparin were given through the arterial sheath. The trap catheter was also used to perform left heart catheterization, left ventriculogram and selective coronary angiogram. At the end of the procedure the sheath was removed good hemostasis was achieved using Traclet band, patient was transferred to the postop holding area in stable condition. ANGIOGRAPHIC RESULTS The left main artery Normal The left anterior descending artery Is mildly proximal and mid vessel 10 to 20% stenosis The circumflex artery Is a dominant vessel mild 10% mid vessel luminal irregularities The right coronary artery Small nondominant normal The [place]TE ventriculogram reveals Normal 60% The left ventricular end-diastolic pressure 15 mmHg IMPRESSION Mild nonflow-limiting coronary disease Normal ejection fraction Mildly elevated LVEDP PLAN 1. Medical management Electronically signed by : Zafar Lang, 10/22/2020 11:00:52
--- NOTE | 2020-10-22 00:43 | PC.NURSE ---
Pt given Zofran IV and it has resolved at this time
--- NOTE | 2020-10-22 00:54 | HMH.EDDIZZ ---
ED Disposition Clinical Impression: Dizziness, Hypertensive urgency, Overweight (BMI 25.0-29.9), Pancreatic cyst Disposition: Admitted as Observation Condition on Discharge: Good - Critical Care Critical Care Time: No Attestation: On 10/21/20, the high probability of a clinically significant, sudden or life threatening deterioration of the following system(s) required my full and direct attention, intervention and personal management. The time I documented below is in addition to time spent performing reported procedures but includes the following listed in this critical care notation. Medical Decision Making - Medical Records Medical records reviewed: Yes: I reviewed the patient's medical records. - Alejandro Inquiry Pt receiving controlled substance: No Vital Signs: 10/21/20 21:10 10/21/20 23:07 10/21/20 23:43 Temperature 98.4 F Temperature Source Oral Pulse Rate [Left Brachial] 71 78 70 Respiratory Rate 20 16 16 Blood Pressure [Left Arm] 188/105 H 203/123 H 199/114 H Blood Pressure Mean [Left Arm] 132 149 142 Blood Pressure Source [Left Arm] Automatic Cuff Automatic Cuff Automatic Cuff Blood Pressure Position [Left Arm] Sitting Sitting 02 Sat by Pulse Oximetry 96 95 98 Oxygen Delivery Method Room Air Room Air Room Air 10/22/20 00:37 10/22/20 01:00 Temperature Temperature Source Pulse Rate [Left Brachial] 70 77 Respiratory Rate 16 16 Blood Pressure [Left Arm] 194/98 H 187/100 H Blood Pressure Mean [Left Arm] 130 129 Blood Pressure Source [Left Arm] Automatic Cuff Automatic Cuff Blood Pressure Position [Left Arm] Sitting 02 Sat by Pulse Oximetry 98 97 Oxygen Delivery Method Room Air Room Air - Lab Data Lab results reviewed: Yes: I reviewed the patient's lab results. Lab Results 10/21/20 21:23: WBC 8.3, RBC 4.70, Hgb 14.5, Hct 44.0, MCV 93.7, MCH 30.9, MCHC 33.0, RDW 13.0, Plt Count 218, MPV 8.0, Neut % (Auto) 73.7, Lymph % (Auto) 18.4, [place] % (Auto) 4.9, Eos % (Auto) 2.4, Baso % (Auto) 0.5, Neut # (Auto) 6.1, Lymph # (Auto) 1.5, [place] # (Auto) 0.4, Eos # (Auto) 0.2, Baso # (Auto) 0.0 10/21/20 21:23: Sodium 142, Potassium 4.1, Chloride 106, Carbon Dioxide 29, Anion Gap 11.1, BUN 9, Creatinine 1.00, Estimated Creat Clear 101, Estimated GFR 76, Est GFR ( Amer) 92, Glucose 107 H, Calcium 9.8, Total Bilirubin 0.5, Direct Bilirubin 0.2, Conjugated Bilirubin 0.0, Indirect Bilirubin 0.3, Unconjugated Bilirubin 0.3, AST 28, ALT 17, Alkaline Phosphatase 89, Troponin I 0.01, Total Protein 8.1, Albumin 4.6 10/21/20 21:23: ESR 57 H 10/21/20 21:23: Procalcitonin 0.037 10/21/20 21:23: C-Reactive Protein 3.2 10/22/20 00:55: Troponin I 0.03 10/22/20 01:00: Chlamy pneumoniae PCR Not detected, Adenovirus (PCR) Not detected, B. pertussis DNA (PCR) Not detected, Coronavirus OC43 (PCR) Not detected, Coronavirus HKU1 (PCR) Not detected, Coronavirus 229E (PCR) Not detected, SARS-CoV-2 (PCR) Not detected, Coronavirus NL63 (PCR) Not detected, Human Metapneumovir PCR Not detected, Influenza A (H1) PCR Not detected, Influ A (H1N1/09) PCR Not detected, Influenza A (H3) PCR Not detected, Influenza Type A (PCR) Not detected, Influenza Type B (PCR) Not detected, M. pneumoniae (PCR) Not detected, Parainfluenza 1 (PCR) Not detected, Parainfluenza 2 (PCR) Not detected, Parainfluenza 3 (PCR) Not detected, Parainfluenza 4 (PCR) Not detected, RSV (PCR) Not detected, Entero/Rhino (PCR) Not detected Result diagrams: 10/21/20 21:23 10/21/20 21:23 Orders (Tests/Meds): ED MEDICATIONS Generic Name Dose Route Start Last Admin Trade Name Freq PRN Reason Stop Dose Admin Sodium Chloride 1,000 mls @ 100 mls/hr 10/22/20 01:00 10/22/20 01:00 Sod Chlor 0.9% 1000ml Bag IV 11/21/20 00:59 100 mls/hr .Q10H YANDY Administration Discontinued Medications Generic Name Dose Route Start Last Admin Trade Name Freq PRN Reason Stop Dose Admin Hydralazine HCl 10 mg 10/21/20 23:33 10/21/20 23:36 Hydralazine 20mg/Ml Vial IV 03
--- NOTE | 2020-10-22 00:55 | CT_ITS ---
Procedure: CT ANGIO NECK CLINICAL HISTORY: HTN with H/A Headache, vomiting, nausea, dizziness COMPARISON: CT CT ANGIO HEAD from 10/22/2020 TECHNIQUE: IV Contrast: 100ml Isovue 370 Axial images obtained with sagittal and coronal reformats. All CT scans at the facility use one or more dose reduction, viz: automated exposure control, ma/kV adjustment per patient size (including targeted exams where dose is matched to indication, i.e. head), or iterative reconstruction technique. FINDINGS: CTA neck: Unremarkable aortic arch and great vessels. There is a mild amount of nonocclusive fibrocalcific plaque in the bulbs on both sides. No stenotic lesions, dissections, aneurysms, or other significant anomalies. The carotids and vertebrals have an unremarkable appearance. No ulcerating lesions evident. CTA head: Minimal atheromatous changes are present in the cavernous portion of both ICAs. No significant stenotic area is evident. No aneurysm AVM or dissection. No major branch occlusive change. No enhancing lesions midline shift or mass effect. Calcified granuloma is present in the left apex. IMPRESSION: Negative CTA of the neck and head Dictated by: Johnnie Torres MD 10/22/2020 14:07 Johnnie Torres MD in [place] 10/22/2020 14:07
--- NOTE | 2020-10-22 00:55 | CT_ITS ---
PROCEDURE: CT HEAD/BRAIN WO CON CLINICAL INDICATION: HTN with H/A Hypertension with headache nausea vomiting and dizziness COMPARISON: No exams were available for comparison TECHNIQUE: Axial images obtained. All CT scans at the facility use one or more dose reduction, viz: automated exposure control, ma/kV adjustment per patient size (including targeted exams where dose is matched to indication, i.e. head), or iterative reconstruction technique. FINDINGS: No midline shift, mass effect, intracranial hemorrhage, hydrocephalus, or extra-axial fluid collection is evident. The calvarium has an unremarkable appearance. No mastoid effusion. No sinus air-fluid level. IMPRESSION: No acute intracranial finding Dictated by: Johnnie Torres MD 10/22/2020 05:51 Johnnie Torres MD in [place] 10/22/2020 05:51
[2020-10-22 01:21] LABS: Troponin I 0.03 ng/ml (0.00-0.034)
[2020-10-22 01:43] LABS: Adenovirus,PCR Not Detected (NotDetected); Bordetella Pertussis Not Detected (NotDetected); Chlamydophila Pneumoniae, PCR Not Detected (NotDetected); Coronavirus 19, PCR Not Detected (NotDetected); Coronavirus 229E Not Detected (NotDetected); Coronavirus NL63 Not Detected (NotDetected); Coronavirus OC43 Not Detected (NotDetected); Coronovirus HKU1,PCR Not Detected (NotDetected); Human Metapneumovirus Not Detected (NotDetected); Influenza A, PCR Not Detected (NotDetected); Influenza AH1, 2009 Not Detected (NotDetected); Influenza AH1, PCR Not Detected (NotDetected); Influenza AH3,PCR Not Detected (NotDetected); Influenza B, PCR Not Detected (NotDetected); Mycoplasma Pneumoniae, PCR Not Detected (NotDetected); Parainfluenza 1, PCR Not Detected (NotDetected); Parainfluenza 2, PCR Not Detected (NotDetected); Parainfluenza 3, PCR Not Detected (NotDetected); Parainfluenza 4, PCR Not Detected (NotDetected); Respiratory Syncytial Virus Not Detected (NotDetected); Rhinovirus/Enterovirus Not Detected (NotDetected)
--- NOTE | 2020-10-22 04:09 | PC.NURSE ---
PT ARRIVED TO FLOOR VIA W/C FROM ED WITH STAFF AT [id number]
[2020-10-22 04:31] LABS: Troponin I 0.03 ng/ml (0.00-0.034)
--- NOTE | 2020-10-22 05:58 | PC.NURSE ---
Fausto NG NOTIFIED OF CONSULT.
[2020-10-22 07:01] LABS: Basophils % 0.4 % (0.1-2.0); Eosinophils # 0.1 K/mm3 (0.0-0.4); Eosinophils % 1.3 % (0.1-12.0); Hematocrit 42.4 % (42.0-52.0); Hemoglobin 14.3 g/dL (14.1-18.0); Lymphocytes # 0.8 K/mm3 (0.7-4.5); Lymphocytes % 7.2 % (10-50); Mean Corpuscular HGB Conc 33.6 g/dL (31.8-35.4); Mean Corpuscular Hemoglobin 31.5 pg (27.0-31.2); Mean Corpuscular Volume 93.8 fl (80-94); Mean Platelet Volume 9.1 fl (7.4-10.4); Monocytes # 0.3 K/mm3 (0.1-1.0); Monocytes % 2.9 % (1.7-9.3); Neutrophils # 9.4 K/mm3 (1.8-7.8); Neutrophils % 88.2 % (37.0-80.0); Platelet Count 210 K/mm3 (142-424); Red Blood Count 4.52 M/mm3 (4.60-6.20); Red Cell Distribution Width 13.1 % (11.5-17.5); White Blood Count 10.6 K/mm3 (4.8-10.8)
[2020-10-22 07:03] LABS: MANUAL DIFFERENTIAL MANUAL DIFFERENTIAL (MANUAL DIFF)
--- NOTE | 2020-10-22 07:23 | HMH.PHAVTE ---
[facility] Pharmacy VTE Monitoring - Patient Demographics Admission date: 10/21/20 Report Date: 10/22/20 Time: 07:23 Allergies/Adverse Reactions: Patient Allergies prednisone Allergy (Intermediate, Verified 08/19/20 08:49) makes mouth numb Height: 1.8 m Weight: 96.275 kg Patient Problems: Current Active Problems Overweight (BMI 25.0-29.9) (Acute) Dizziness (Acute) Hypertensive urgency (Acute) Pancreatic cyst (Chronic) - VTE Risk Labs: VTE Related Lab Results Hgb 14.3 g/dL (14.1-18.0) 10/22/20 06:21 Hct 42.4 % (42.0-52.0) 10/22/20 06:21 Plt Count 210 K/mm3 (142-424) 10/22/20 06:21 BUN 9 mg/dl (9-20) 10/21/20 21:23 Creatinine 1.00 mg/dl (0.66-1.25) 10/21/20 21:23 Estimated Creat Clear 101 mL/min (50-200) 10/21/20 21:23 Was VTE Risk Assessment Performed: Yes VTE Risk Level: Low Risk Clinical Trial Participant: No - Prophylaxis VTE Prophylaxis Ordered?: Yes Types of VTE Prophylaxis: TEDS Knee High
--- NOTE | 2020-10-22 07:26 | HMH.PHAINT ---
completed home medication list using list from Jordy Castellon
--- NOTE | 2020-10-22 08:00 | CA_ITS ---
APPROVED REPORT EXAM: Comprehensive 2D, Doppler, and color-flow Echocardiogram Pre School Teacher: FLORES Duncan, RVS Ht: 6 ft 0 in Wt: 212lbs BSA: 2.18 HR: 70 bpm BP: 187/100 mmHg Rhythm: NSR Indications: Hypertensive emergency, soa Echo Enhancing Agent Comments: Technically limited exam due to patient inability to remain in a position, poor acoustics throughout. 2D Dimensions IVSd 1.15 cm LVEF (Visual) 64.00 % PWd 1.08 cm LA Volume 78.70 mL LVDd 4.23 cm LA Volume Index 36.10 mL/m2 (M/F) 16-34 LVDs 2.77 cm Aortic Root 3.03 cm Left Atrium 4.35 cm M-Mode Dimensions LA Diam 4.20 cm (1.9-4.0) Ao Diam 3.19 cm (2.0-3.7) TAPSE 2.78 (<1.7) LV Diastology E Decel Time 223.00 (160-240 msec) E/A Ratio 0.80 MED E' 6.40 (< 7 cm/sec) MED A' 10.50 cm/s E'/MED E' Ratio 18.14 (>14) LAT E' 10.50 (<10 cm/sec) LAT A' 12.60 cm/s E/LAT E' Ratio 11.06 (>14) Aortic Valve AoV Peak Michael. 210.00 (50-130 cm/s) AO Peak GR. 17.60 mmHg AO Mean GR. 10.60 (<5 mmHg) AO VTI 47.85 (18-25 cm) Mitral Valve MV A Velocity 145.00 (40-130 cm/s) E/A Ratio 0.80 MV Decel. Time 223.00 (160-240 ms) Pulmonary Valve PV Peak Velocity 91.00 (50-150 cm/s) Tricuspid Valve TR P. Velocity 317.00 cm/s RAP Estimate 10.00 mmHg RVSP 50.20 mmHg Left Ventricle Left atrium is mildly enlarged, left ventricle is normal size, mild concentric left ventricular hypertrophy, visually estimated ejection fraction 55% with no regional wall motion abnormality, grade 1 diastolic dysfunction seen without tissue Doppler evidence of raise left atrial pressure. Right Ventricle Right atrium and right ventricle are normal size and contractility. Aortic Valve Aortic valve is minimally thickened and fibrosed, there is no aortic stenosis or aortic insufficiency. Mitral Valve Mitral valve is grossly normal, there is trace mitral regurgitation. Tricuspid Valve Tricuspid valve grossly normal, there is trace tricuspid regurgitation, tricuspid regurgitation jet velocity is inadequate for calculation of the right ventricular systolic pressure. Pulmonic Valve Pulmonic valve is poorly visualized. Great Vessels Aortic root is normal size. Pericardium No significant pericardial effusion noted. Conclusion 1. Mildly enlarged left atrium, normal left ventricular size, mild concentric left ventricular hypertrophy, visually estimated ejection fraction 55% with no regional wall motion abnormality, grade 1 diastolic dysfunction seen without tissue Doppler evidence of raise left atrial pressure. 2. Trace mitral and tricuspid regurgitation. 3. No significant pericardial effusion noted. Electronically signed by : Gamal Antoine, 10/22/2020 08:34:08
[2020-10-22 08:56] LABS: Chloride 107 mmol/L (98-107); Potassium 4.4 mmoL/L (3.5-5.1); Sodium 142 mmol/L (136-145)
[2020-10-22 08:58] LABS: Blood Urea Nitrogen 8 mg/dl (9-20); Creatinine Clearance Estimated 107 mL/min (50-200); Estimated Glomerular Filt Rate 76 ml/min (>60); GFR (African American) 92 ML/MIN (>60)
[2020-10-22 08:59] LABS: Anion Gap 11.4 mEq/L (5-15); Calcium 9.4 mg/dl (8.4-10.2); Carbon Dioxide 28 mmol/L (22.0-30.0); Cholesterol 250 mg/dl (140-200); Glucose 139 mg/dl (74-100); Magnesium 1.7 mg/dl (1.6-2.3); Triglycerides 108 mg/dl (30-150); VLDL Cholesterol 22 mg/dL (0-40)
[2020-10-22 09:00] LABS: HDL Cholesterol 50 mg/dl (40-60)
[2020-10-22 09:10] LABS: Direct LDL Cholesterol 160.27 mg/dL (100-129)
--- NOTE | 2020-10-22 09:14 | PC.NURSE ---
Clementina COOK MADE AWARE OF HEART RHYTHM ON FISH INSPECTOR AT 0815, INSTRUCTED TO GIVE ORDERED METOPROLOL AND LISINOPRIL PER OCT. Maddi HOFFMAN ALSO NOTIFIED THIS AM. PT DENIES CHEST PAIN AND LIGHT HEADEDNESS. WILL CONTINUE TO MONITOR PT.
--- NOTE | 2020-10-22 09:57 | HMH.CNCARD ---
History of Present Illness Consult date: 10/22/20 Requesting physician: Paddy Velasco Consult reason: hypertension Chief complaint: HTN Urgency Additional Medical History:: 1. Hypertension, treated for about 10 years 2. Disability due to chronic back discomfort 3. Anxiety/depression 4. History of pancreatic cysts 5. Nonsustained ventricular tachycardia on telemetry, 10/22/2020, up to 8 beats at 200 bpm A. Echocardiogram shows normal ejection fraction with no significant valvular heart disease B. Left heart cath, 10/22/2020 History of present illness: Pt reports he has been dealing with high blood pressure for weeks. He reports that is has been as high at 280s/189 today. Pt took an extra dose of his Lisinopril 20mg and reports that didn't help much. Pt also reports to feeling occasionaly dizzy, sweating, and then chills. Pt denies any chest pain, vision trouble, or fever. Pt denies any exposure to any known COVID. Pt states he has had intermittent pin-point pain to L bicep area. There is a known cyst in this localation per pt The above per ER MD Patient denies any chest pain, pressure or tightness. Came to the ER due to symptoms as noted above in conjunction with elevated blood pressure over the last week. He relates being admitted to the hospital in July at which time his diuretic was discontinued due to acute kidney injury that resolved. Patient denies any oegn-[id number] NSAID therapy or other cjnr-bfv-[id number] medications. He denies increase in salt intake, fast food or prepackaged food. He does relate missing 1 maybe 2 doses of his medication last week otherwise he is compliant with it. Echocardiogram today shows preserved ejection fraction with grade 1 diastolic dysfunction and mild MR. Troponins are within normal limits x3. Renal function is normal as well. CT of the head last night showed no acute process. EKG is sinus rhythm with no acute ST segment changes. Non-smoker Nondrinker No history of diabetes [facility] History Medical History: Reports:: Anxiety, Depression, Hypertension, Kidney Stones Denies:: Cancer, Diabetes Mellitus Type 1, Diabetes Mellitus Type 2, MRSA *Have you ever received a pneumonia vaccine?: Yes *Have you received a flu vaccine this season?: Yes Other Surgeries: Yes: Colonoscopy Amputation: No Fractures: No - *Social History Last grade of school completed: High school graduate Smoking Status: Never smoker Alcohol Intake: never Substance Use Type: denies use *Occupational Status:: retired Housing: house Household Members: significant other *Travel in the last 8 weeks: None - Psychiatric History Pschychiatric History:: Reports:: Anxiety, Depression Family Hx:: No significant family history Meds Home Medications Medication Instructions Recorded Confirmed Type tizanidine 4 mg tablet 4 mg PO TID PRN #90 tab 08/17/18 10/21/20 Rx Gabapentin [Neurontin 800mg Tab] 600 mg PO TID 07/17/20 10/21/20 History Hydrocodone/Acetaminophen 1 each PO Q6HP PRN 07/17/20 10/21/20 History [Hydrocodone-Acetamin 10-325 mg] Metoprolol Succinate [Metoprolol 25 mg PO DAILY 10/21/20 10/21/20 History Succinate 25mg Tablet*] lisinopriL [Lisinopril] 20 mg PO DAILY 10/21/20 10/21/20 History Hyoscyamine Sulfate 0.125 mg PO TIDP PRN 10/22/20 10/22/20 History Omeprazole [Omeprazole 20mg 20 mg PO DAILY 10/22/20 10/22/20 History Capsule] Allergies Allergy/AdvReac Type Severity Reaction Status Date / Time prednisone Allergy Intermediate makes Verified 08/19/20 08:49 mouth numb Exam Vital signs and Labs for Last 24 Hours: Temp Pulse Resp BP Pulse Ox 98 F 65 17 165/85 H 96 10/22/20 08:00 10/22/20 08:00 10/22/20 08:00 10/22/20 08:00 10/22/20 08:00 Laboratory Results - last 24 hr 10/21/20 21:23: WBC 8.3, RBC 4.70, Hgb 14.5, Hct 44.0, MCV 93.7, MCH 30.9, MCHC 33.0, RDW 13.0, Plt Count 218, MPV 8.0, Neut % (Auto) 73.7, Lymph % (Auto) 18.4, [place] % (Auto) 4.9, Eos % (Auto) 2
[2020-10-22 10:11] LABS: Troponin I 0.04 ng/ml (0.00-0.034)
[2020-10-22 10:13] LABS: Lymphocytes % 6 % (10-50); Monocytes % 2 % (2-9); Neutrophils % 90 % (42-76); Platelet Estimate Normal; RBC Morphology Normal; Total Cells Counted 100
--- NOTE | 2020-10-22 12:28 | PC.NURSE ---
Pt arrived back from the vp lab.
--- NOTE | 2020-10-22 14:27 | PC.NURSE ---
HE IS AOX4, ABLE TO MAKE NEEDS KNOWN TO STAFF, HEART CATH TODAY RIGHT RADIAL APPROACH, PT HAS REMAINED HYPERTENSIVE T/O SHIFT, CARE TEAM IS AWARE, HE DOES NOT REQUIRE O2 SUPPORT, HAS TOLERATED DIET SINCE RETURNING TO FLOOR, AMBULATED X1 ASSIST TO THE RESTROOM AFTER RETURNING FROM [employer], PT RIGHT HAND IS WARM AND APPROPRIATE IN COLOR, NO DEFICITS AND DEVELOPMENT INTERN ARE EQUAL BILATERALLY, LUNG SOUNDS ARE CLEAR TO AUSCULTATION, ABD IS SOFT AND NON-TENDER WITH ACTIVE BOWEL SOUNDSX4, DENIES N/V/D, NO NEEDS AT THIS TIME.
--- NOTE | 2020-10-22 17:37 | HMH.HP ---
*Admission Date: 10/21/20 *Chief complaint: Dizziness *History of present illness: 59-year-old male patient presents the emergency department with complaints of dizziness, sweating, and chills. Reports having a history of high blood pressure but had missed several doses of his blood pressure medications and took an extra lisinopril 20 mg after blood pressure was 240s over 180s. He denies any chest pain, blurry vision, double vision, fever, nausea, vomiting, diarrhea. Chest x-ray, head CT, revealed no acute findings Head and neck CTA revealed no acute findings Hematology and chemistry are both unremarkable Troponins negative x3 [facility] History I have reviewed the patient's past medical history: Yes Medical History: Reports:: Anxiety, Depression, Hypertension, Kidney Stones Denies:: Cancer, Diabetes Mellitus Type 1, Diabetes Mellitus Type 2, MRSA *Have you ever received a pneumonia vaccine?: Yes *Have you received a flu vaccine this season?: Yes Other Surgeries: Yes: Colonoscopy Amputation: No Fractures: No - *Social History Last grade of school completed: High school graduate Smoking Status: Never smoker Alcohol Intake: never Substance Use Type: denies use *Occupational Status:: retired Housing: house Household Members: significant other *Travel in the last 8 weeks: None - Psychiatric History Pschychiatric History:: Reports:: Anxiety, Depression Family Hx:: No significant family history Review of Systems - Review of Systems Review of systems:: pertinent systems reviewed and negative unless documented below - Constitutional Reports chills, Reports fatigue, Reports headache(s), Denies anorexia - Eyes Denies blind spots, Denies blurry vision - ENT Reports dizziness, Denies abnormal hearing, Denies dry mouth - *Cardiovascular Denies chest pain, Denies shortness of breath - *Respiratory Denies change in phlegm color, Denies chest congestion - *Gastrointestinal Denies abdominal pain, Denies bloating - *Genitourinary Denies difficulty urinating, Denies frequent nighttime urination - *Musculoskeletal Denies abnormal walking, Denies back pain - Integumentary/Breasts Denies hair loss, Denies change in skin color - *Neurologic Reports dizziness, Denies seizure-like activity, Denies headache(s), Denies numbness, Denies tingling/numbness/burning sensations - Psychiatric Denies abnormal sleep pattern, Denies hearing things others do not hear - Endocrine Denies cold intolerance, Denies heat intolerance - Hematologic/Lymphatic Denies easy bleeding, Denies easy bruising - Allergic/Immunologic Denies throat swelling, Denies tongue swelling Meds Home Medications Medication Instructions Recorded Confirmed Type tizanidine 4 mg tablet 4 mg PO TID PRN #90 tab 08/17/18 10/21/20 Rx Gabapentin [Neurontin 800mg Tab] 600 mg PO TID 07/17/20 10/21/20 History Hydrocodone/Acetaminophen 1 each PO Q6HP PRN 07/17/20 10/21/20 History [Hydrocodone-Acetamin 10-325 mg] Metoprolol Succinate [Metoprolol 25 mg PO DAILY 10/21/20 10/21/20 History Succinate 25mg Tablet*] lisinopriL [Lisinopril] 20 mg PO DAILY 10/21/20 10/21/20 History Hyoscyamine Sulfate 0.125 mg PO TIDP PRN 10/22/20 10/22/20 History Omeprazole [Omeprazole 20mg 20 mg PO DAILY 10/22/20 10/22/20 History Capsule] Allergies Allergy/AdvReac Type Severity Reaction Status Date / Time prednisone Allergy Intermediate makes Verified 08/19/20 08:49 mouth numb Exam Vital signs and Labs for Last 24 Hours: Temp Pulse Resp BP Pulse Ox 98.1 F 71 18 149/70 H 98 10/22/20 15:20 10/22/20 15:20 10/22/20 15:20 10/22/20 15:20 10/22/20 15:20 Laboratory Results - last 24 hr 10/21/20 21:23: WBC 8.3, RBC 4.70, Hgb 14.5, Hct 44.0, MCV 93.7, MCH 30.9, MCHC 33.0, RDW 13.0, Plt Count 218, MPV 8.0, Neut % (Auto) 73.7, Lymph % (Auto) 18.4, [place] % (Auto) 4.9, Eos % (Auto) 2.4, Baso % (Auto) 0.5, Neut # (Auto) 6.1, Lymph #
[2020-10-23] VITALS: PULSE 70
[2020-10-23 04:00] VITALS: BP 148/80; PULSE 65; PULSE 70; RESP 12; TEMP 37; O2SAT 97
--- NOTE | 2020-10-23 04:19 | PC.NURSE ---
pt has rested well throughout shift, pt is alert and oriented and able to make needs known, no complaints of chest pain, pt continues to complain of mild headache, heart regular, lungs remain clear, pt bp has remained stable throughout shift slightly elevated at 2048 173/102 before night time meds has since improved, pt remains normal sinus rhythm on telemetry, pt requested for fluids to be saline locked pt has had good oral intake, no distress noted at this time, will continue to monitor
[2020-10-23 05:13] VITALS: BMI 29.1
[2020-10-23 07:40] LABS: Basophils % 0.2 % (0.1-2.0); Eosinophils # 0.2 K/mm3 (0.0-0.4); Eosinophils % 1.6 % (0.1-12.0); Hematocrit 42.7 % (42.0-52.0); Lymphocytes % 10.1 % (10-50); Mean Corpuscular HGB Conc 32.8 g/dL (31.8-35.4); Mean Corpuscular Hemoglobin 31.1 pg (27.0-31.2); Mean Corpuscular Volume 94.9 fl (80-94); Mean Platelet Volume 8.5 fl (7.4-10.4); Monocytes # 0.5 K/mm3 (0.1-1.0); Monocytes % 4.6 % (1.7-9.3); Neutrophils # 8.4 K/mm3 (1.8-7.8); Neutrophils % 83.5 % (37.0-80.0); Platelet Count 231 K/mm3 (142-424); Red Cell Distribution Width 13.6 % (11.5-17.5)
--- NOTE | 2020-10-23 07:47 | HMH.PNCARD ---
Subjective Date: 10/23/20 Time: 07:35 Principal diagnosis: HTN Interval history: 59-year-old male admitted to [facility] with hypertensive emergency. Patient stated his medications at home was not helping his blood pressure. Patient underwent left heart catheterization yesterday. Heart catheterization revealed mild nonflowing limited CAD. Patient did have episode of nonsustained V. tach. Patient has had no reoccurring nonsustained V. tach. Metoprolol was increased to 50 mg a day. Patient denies chest pain, tightness or pressure. Patient denies shortness of breath. Patient denies palpitations or dizziness. Swelling noted of the lower extremity. Cath site right wrist dressing dry and intact. Patient was instructed no strenuous or heavy activity until follow-up with cardiology in 1 week. monitor tech reveals normal sinus rhythm 67 bpm. No events were noted on environmental monitoring specialist throughout the night. Patient states he is ready to go home. Echo:Conclusion 1. Mildly enlarged left atrium, normal left ventricular size, mild concentric left ventricular hypertrophy, visually estimated ejection fraction 55% with no regional wall motion abnormality, grade 1 diastolic dysfunction seen without tissue Doppler evidence of raise left atrial pressure. 2. Trace mitral and tricuspid regurgitation. 3. No significant pericardial effusion noted. Discussed plan of care with Dr. Lang. From a cardiac standpoint patient may be discharged home. Patient will need continue his current medications especially the metoprolol succinate 50 mg 1 daily for hypertension and palpitations. No strenuous activity or heavy lifting until follow-up with cardiology in 1 week. Patient verbalized understanding to notify cardiology if symptoms develop or continue. Thank you for allowing cardiology to participate in the care of this patient. Exam Vital signs and Labs for Last 24 Hours: Temp Pulse Resp BP Pulse Ox 98.6 F 70 12 148/80 H 97 10/23/20 04:00 10/23/20 04:00 10/23/20 04:00 10/23/20 04:00 10/23/20 04:00 Laboratory Results - last 24 hr 10/22/20 06:21: Total Counted 100, Neutrophils % (Manual) 90 H, Band Neutrophils % 2.0, Lymphocytes % (Manual) 6 L, Monocytes % (Manual) 2, Platelet Estimate Normal, RBC Morphology Normal 10/22/20 08:29: Sodium 142, Potassium 4.4, Chloride 107, Carbon Dioxide 28, Anion Gap 11.4, BUN 8 L, Creatinine 1.00, Estimated Creat Clear 107, Estimated GFR 76, Est GFR ( Amer) 92, Glucose 139 H D, Calcium 9.4, Magnesium 1.7, Triglycerides 108, Cholesterol 250 H, LDL Cholesterol Direct 160.27 H, VLDL Cholesterol 22, HDL Cholesterol 50, Cholesterol/HDL Ratio 5.0 H 10/22/20 08:29: Troponin I 0.04 H 10/23/20 07:20: WBC 10.0, RBC 4.50 L, Hgb 14.0 L, Hct 42.7, MCV 94.9 H, MCH 31.1, MCHC 32.8, RDW 13.6, Plt Count 231, MPV 8.5, Neut % (Auto) 83.5 H, Lymph % (Auto) 10.1, [place] % (Auto) 4.6, Eos % (Auto) 1.6, Baso % (Auto) 0.2, Neut # (Auto) 8.4 H, Lymph # (Auto) 1.0, [place] # (Auto) 0.5, Eos # (Auto) 0.2, Baso # (Auto) 0.0 I & O for Last 24 hours: Intake & Output 10/20/20 10/21/20 10/22/20 10/23/20 23:59 23:59 23:59 23:59 Intake Total 335 / 335 Output Total 350 / 350 Balance -15 / -15 Weight 200 lb 212 lb 4 oz 208 lb 6 oz - Constitutional no acute distress, average body habitus, cooperative - *Routine HEENT Exam Head: Present: normocephalic ENT: Present: mucous membranes moist - *Routine Neck Exam Present: supple, full ROM, normal carotid upstroke. Absent: JVD, carotid bruit, lymphadenopathy - *Routine Respiratory Exam Present: accessory muscle use, CTA bilaterally. Absent: wheezes - *Routine Cardiovascular Exam Present: RRR, Normal S1, Normal S2. Absent: murmur, gallop, bradycardia, tachycardia, irregular rhythm, irregularly irregular, JVD, ectopic - *Routine Abdominal Exam Present: soft, normoactive bowel sounds. Absent: distended, firm - *Routine Extremities Exam Present: full ROM,
[2020-10-23 07:48] LABS: Anion Gap 11.3 mEq/L (5-15); Blood Urea Nitrogen 13 mg/dl (9-20); Calcium 9.3 mg/dl (8.4-10.2); Carbon Dioxide 28 mmol/L (22.0-30.0); Chloride 105 mmol/L (98-107); Creatinine Clearance Estimated 95 mL/min (50-200); Estimated Glomerular Filt Rate 68 ml/min (>60); GFR (African American) 83 ML/MIN (>60); Glucose 128 mg/dl (74-100); Potassium 4.3 mmoL/L (3.5-5.1); Sodium 140 mmol/L (136-145)
[2020-10-23 08:00] VITALS: BP 163/99; PULSE 68; PULSE 70; RESP 16; TEMP 36.8; O2SAT 97
--- NOTE | 2020-10-23 08:05 | HMH.DCSUM ---
General - General Admission date:: 10/22/20 Discharge date: 10/23/20 HPI HPI: 59-year-old male patient presents the emergency department with complaints of dizziness, sweating, and chills. Reports having a history of high blood pressure but had missed several doses of his blood pressure medications and took an extra lisinopril 20 mg after blood pressure was 240s over 180s. He denies any chest pain, blurry vision, double vision, fever, nausea, vomiting, diarrhea. Chest x-ray, head CT, revealed no acute findings Head and neck CTA revealed no acute findings Hematology and chemistry are both unremarkable Troponins negative x3 Hospital Course Hospital Course: 59-year-old male patient presents the emergency department with complaints of dizziness, sweating, and chills. Reports having a history of high blood pressure but had missed several doses of his blood pressure medications and took an extra lisinopril 20 mg after blood pressure was 240s over 180s. He denies any chest pain, blurry vision, double vision, fever, nausea, vomiting, diarrhea. Chest x-ray, head CT, revealed no acute findings Head and neck CTA revealed no acute findings Hematology and chemistry are both unremarkable Troponins negative x3 10/22/20 Card Cath: ANGIOGRAPHIC RESULTS The left main artery Normal The left anterior descending artery Is mildly proximal and mid vessel 10 to 20% stenosis The circumflex artery Is a dominant vessel mild 10% mid vessel luminal irregularities The right coronary artery Small nondominant normal The [place] ventriculogram reveals Normal 60% The left ventricular end-diastolic pressure 15 mmHg IMPRESSION Mild nonflow-limiting coronary disease Normal ejection fraction Mildly elevated LVEDP PLAN 1. Medical management Electronically signed by : Zafar Lang, 10/22/20 ECHO: Conclusion 1. Mildly enlarged left atrium, normal left ventricular size, mild concentric left ventricular hypertrophy, visually estimated ejection fraction 55% with no regional wall motion abnormality, grade 1 diastolic dysfunction seen without tissue Doppler evidence of raise left atrial pressure. 2. Trace mitral and tricuspid regurgitation. 3. No significant pericardial effusion noted. Electronically signed by : Gamal Antoine, Cardiology has seen and recommends: Plan: 1. Patient was admitted to [facility] with hypertensive emergency. Blood pressure is under control with current medications along with increasing metoprolol succinate to 50 mg daily. 2. Patient underwent left heart catheterization. Left heart catheterization revealed mild nonflow limiting CAD. Patient was noted to have nonsustained V. tach on the desk monitor. Metoprolol succinate was increased to 50 mg daily. Patient has had no further nonsustained V. tach or any other ectopy on the desk monitor. Patient is remained in sinus rhythm with a heart rate between 60 and 70 bpm. 3. Patient was instructed no strenuous or heavy lifting for 1 week or until follow-up with cardiology due to left heart catheterization site. Patient verbalized understanding. 4. LDL goal<55. 5. Encourage diet and exercise. 6. Patient is to follow-up in cardiology clinic in 1 week or sooner if signs and symptoms persist or develop. 59-year-old male patient sitting up in bed, he denies any chest pain, headache, dizziness, or respiratory distress during the night. Blood pressure has been controlled during the night. Discussed discharged home with patient, he is agreeable to this and verbalizes he will attend follow-up appointment. Plan: 1. We will discharge home today 2. Follow-up with cardiology in 1 week 3. Follow-up with PCP in 1 week 4. Increase metoprolol succinate 50 mg daily Objective Vital signs: Temp Pulse Resp BP Pulse Ox 98.6 F 70 12 148/80 H 97 10/23/20 04:00 10/23/20 04:00 10/23/20 04:00 10/23/20 04:00 10/23/20 04:00
== END 2020-10-23 09:56 | disposition home or self-care (01) ==
LOC: ER 10-22 02:34 → 2ND 10-22 03:15
PROVIDERS: Internal Medicine; Physician Assistant; Admitting Provider Emergency Medicine; Emergency Provider Emergency Medicine; PCP Physician Assistant; Visit Provider Emergency Medicine
DX: I16.0 Hypertensive urgency (principal); I47.2 Ventricular tachycardia; M51.36 Other intervertebral disc degeneration, lumbar region; K86.2 Cyst of pancreas; Z79.899 Other long term (current) drug therapy; I11.0 Hypertensive heart disease with heart failure; I50.30 Unspecified diastolic (congestive) heart failure
CPT/HCPCS: 36415; 70450; 70496; 70498; 71046; 80048; 80061; 80076; 83735; 84145; 84484; 85007; 85025; 85651; 86140; 87581; 87633; 87798; 93005; 93306; 93458; 93976; 96365; 99152; 99284; C1725; C1769; G0378; J1644; J2405; Q9967

== ENCOUNTER → 2021-04-02 10:24 | Outpatient (CLI) | payer BC, SELFPAY ==
--- NOTE | 2021-04-07 11:59 | PC.NURSE ---
PATIENT REGISTERED FOR OVERNIGHT PULSEOX - RETURNED DEVICE - NO DATA - NO CHARGE - RESCHEDULED...
== END ==
PROVIDERS: PCP Physician Assistant; Visit Provider Specialist
DX: R42 Dizziness and giddiness (principal); R06.09 Other forms of dyspnea
CPT/HCPCS: 94762

== ENCOUNTER → 2021-04-24 12:12 | Outpatient (CLI) | payer BC, SELFPAY ==
[2021-04-24 12:29] LABS: Basophils # 0.1 K/mm3 (0-0.2); Basophils % 0.5 % (0.1-2.0); Eosinophils # 0.2 K/mm3 (0.0-0.4); Eosinophils % 2.3 % (0.1-12.0); Hematocrit 46.1 % (42.0-52.0); Hemoglobin 14.9 g/dL (14.1-18.0); Lymphocytes # 1.1 K/mm3 (0.7-4.5); Lymphocytes % 11.1 % (10-50); Mean Corpuscular HGB Conc 32.2 g/dL (31.8-35.4); Mean Corpuscular Hemoglobin 32.2 pg (27.0-31.2); Mean Corpuscular Volume 99.9 fl (80-94); Mean Platelet Volume 8.9 fl (7.4-10.4); Monocytes # 0.4 K/mm3 (0.1-1.0); Monocytes % 4.1 % (1.7-9.3); Neutrophils # 8.4 K/mm3 (1.8-7.8); Neutrophils % 82.1 % (37.0-80.0); Platelet Count 271 K/mm3 (142-424); Red Blood Count 4.61 M/mm3 (4.60-6.20); Red Cell Distribution Width 14.5 % (11.5-17.5); White Blood Count 10.2 K/mm3 (4.8-10.8)
[2021-04-24 13:56] LABS: Anion Gap 21.8 mEq/L (5-15); Blood Urea Nitrogen 38 mg/dl (9-20); Calcium 9.2 mg/dl (8.4-10.2); Carbon Dioxide 27 mmol/L (22.0-30.0); Chloride 101 mmol/L (98-107); Estimated Glomerular Filt Rate 19 ml/min (>60); GFR (African American) 22 ML/MIN (>60); Glucose 135 mg/dl (74-100); Potassium 4.8 mmoL/L (3.5-5.1); Sodium 145 mmol/L (136-145)
== END ==
PROVIDERS: Nurse Practitioner Family; PCP Physician Assistant; Visit Provider Specialist
DX: I10 Essential (primary) hypertension (principal)
CPT/HCPCS: 36415; 80048; 85025

== ENCOUNTER → 2021-04-24 12:32 | Outpatient (CLI) | payer BC, SELFPAY ==
--- NOTE | 2021-04-24 13:58 | MR_ITS ---
PROCEDURE: MR HEAD/BRAIN WO CON CLINICAL INDICATION: transient global aphasia COMPARISON: No exams were available for comparison TECHNIQUE: Routine multiplanar multi echo sequences are performed without gadolinium enhancement. FINDINGS: No midline shift, mass effect, intracranial hemorrhage, or hydrocephalus. There is a small focal area of increased diffusion signal measuring approximately 7 mm with isointense ADC signal within the white matter of the right parietal lobe consistent with a small area of subacute infarction. No other areas of restricted diffusion are apparent. The hippocampal gyri are unremarkable in the temporal horns are symmetric. The cerebellopontine angles, cerebellum, and brainstem have an unremarkable appearance. The pituitary, optic chiasm, and corpus callosum and craniocervical junction have an unremarkable appearance. No mastoid effusion or sinus air-fluid level. 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
== END ==
PROVIDERS: PCP Physician Assistant; Visit Provider Specialist
DX: I63.9 Cerebral infarction, unspecified (principal)
CPT/HCPCS: 70551; 94762

== ENCOUNTER → 2021-04-25 10:16 | Outpatient (CLI) | payer BC, SELFPAY ==
--- NOTE | 2021-04-25 10:18 | CA_ITS ---
APPROVED REPORT Waxer: Kellee Thakkar RVT Study Quality: Good Indications: acute renal failure Risk Factors Hypertension Hyperlipidemia TIA/CVA History Medications XARELTO Renal Artery Doppler Origin (R) 252.8/ cm/sec Proximal (R) 281.9/ cm/sec Mid (R) 309.2/ cm/sec Distal (R) 132.4/ cm/sec Renal Aorta Ratio (R) 2.30 Segmental A. (R) 62.9/10.9 cm/sec RI: 0.82 Segmental A. Sup (R) 38.7/13.6 cm/sec Segmental A. Mid (R) 36.6/6.3 cm/sec Segmental A. Inf (R) 62.9/10.9 cm/sec Origin (L) 145.9/ cm/sec Proximal (L) 247.2/ cm/sec Mid (L) 197.7/ cm/sec Distal (L) 137.2/ cm/sec Renal Aorta Ratio (L) 1.84 Segmental A. (L) 58.7/10.6 cm/sec RI: 0.81 Segmental A. Sup (L) 49.1/17.2 cm/sec Segmental A. Mid (L) 51.6/15.3 cm/sec Segmental A. Inf (L) 58.3/10.6 cm/sec Renal Measurements Kidney Size (R) 8.9x6.6 cm Cortical Thickness (R) 1.7 cm Kidney Size (L) 10.4x6.7 cm Cortical Thickness (L) 1.3 cm Findings Study suggests greater than 60% stenosis of the bilateral renal arteries. Conclusion Study suggests greater than 60% stenosis of the bilateral renal arteries. Electronically signed by : Johnnie Torres MD 04/25/2021 16:48:42
== END ==
PROVIDERS: PCP Physician Assistant; Visit Provider Nurse Practitioner Family
DX: N17.9 Acute kidney failure, unspecified (principal); I25.10 Atherosclerotic heart disease of native coronary artery without angina pectoris; E78.5 Hyperlipidemia, unspecified
CPT/HCPCS: 93976

== ENCOUNTER 2021-04-28 13:30 | Emergency (ER) | payer BC, SELFPAY ==
[2021-04-28 13:32] VITALS: BP 180/101; PULSE 70; RESP 18; TEMP 37; O2SAT 98; BMI 28.5
--- NOTE | 2021-04-28 13:55 | PC.NURSE ---
Pt med list to be faxed over by pt's pharmacy
[2021-04-28 14:47] VITALS: BMI 28.5
[2021-04-28 15:01] VITALS: BP 186/107; PULSE 61; O2SAT 97
[2021-04-28 15:08] LABS: Basophils % 0.7 % (0.1-2.0); Chloride 109 mmol/L (98-107); Eosinophils # 0.1 K/mm3 (0.0-0.4); Eosinophils % 2.5 % (0.1-12.0); Hematocrit 41.4 % (42.0-52.0); Hemoglobin 13.8 g/dL (14.1-18.0); Lymphocytes % 21.2 % (10-50); Mean Corpuscular HGB Conc 33.4 g/dL (31.8-35.4); Mean Corpuscular Volume 95.9 fl (80-94); Mean Platelet Volume 8.4 fl (7.4-10.4); Monocytes # 0.2 K/mm3 (0.1-1.0); Neutrophils # 3.3 K/mm3 (1.8-7.8); Neutrophils % 70.7 % (37.0-80.0); Platelet Count 190 K/mm3 (142-424); Red Blood Count 4.32 M/mm3 (4.60-6.20); Red Cell Distribution Width 13.9 % (11.5-17.5); White Blood Count 4.7 K/mm3 (4.8-10.8)
[2021-04-28 15:09] LABS: Potassium 4.2 mmoL/L (3.5-5.1); Sodium 143 mmol/L (136-145)
[2021-04-28 15:11] LABS: Alanine Aminotransferase 15 U/L (12-78); Alkaline Phosphatase 70 U/L (38-126); Anion Gap 12.2 mEq/L (5-15); Aspartate Amino Transferase 22 U/L (17-59); Bilirubin,Total 0.2 mg/dl (0.2-1.3); Blood Urea Nitrogen 12 mg/dl (9-20); Carbon Dioxide 26 mmol/L (22.0-30.0); Creatinine Clearance Estimated 105 mL/min (50-200); Estimated Glomerular Filt Rate 86 ml/min (>60); GFR (African American) 104 ML/MIN (>60)
[2021-04-28 15:12] LABS: Albumin/Globulin Ratio 1.4 (1.1-1.8); Calcium 9.4 mg/dl (8.4-10.2); Globulin 2.8 g/dL (1.3-3.2); Glucose 103 mg/dl (74-100); Total Protein,Serum 6.8 g/dl (6.3-8.2)
[2021-04-28 15:31] VITALS: BP 198/106; PULSE 64; O2SAT 97
[2021-04-28 16:00] VITALS: BP 192/106; PULSE 64; O2SAT 97
--- NOTE | 2021-04-28 16:04 | PC.NURSE ---
Richie grady went into room to take pt for scan and pt has refused it stating that he just had a MRI done recently. MD rodriguez
--- NOTE | 2021-04-28 16:34 | HMH.EDGENADL ---
ED Disposition Clinical Impression: Hypertensive urgency Headache Qualifiers: Headache type: unspecified Headache chronicity pattern: unspecified pattern Intractability: not intractable Qualified Code(s): R51.9 - Headache, unspecified Disposition: Left Without Being Seen Condition on Discharge: Unable to assess Referrals: Roseanne Cedeño PA [Primary Care Provider] - Time of Disposition: 16:36 - Critical Care Critical Care Time: No Attestation: On 04/28/21, the high probability of a clinically significant, sudden or life threatening deterioration of the following system(s) required my full and direct attention, intervention and personal management. The time I documented below is in addition to time spent performing reported procedures but includes the following listed in this critical care notation. Medical Decision Making - Alejandro Inquiry Pt receiving controlled substance: No Vital Signs: 04/28/21 13:32 04/28/21 15:01 Temperature 98.6 F Temperature Source Oral Pulse Rate 61 Pulse Rate [Right] 70 Respiratory Rate 18 Blood Pressure 186/107 H Blood Pressure [Right Arm] 180/101 H Blood Pressure Mean [Right Arm] 127 02 Sat by Pulse Oximetry 98 97 Oxygen Delivery Method Room Air - Lab Data Lab results reviewed: Yes: I reviewed the patient's lab results. Lab Results 04/28/21 14:54: WBC 4.7 L, RBC 4.32 L, Hgb 13.8 L, Hct 41.4 L, MCV 95.9 H, MCH 32.0 H, MCHC 33.4, RDW 13.9, Plt Count 190, MPV 8.4, Neut % (Auto) 70.7, Lymph % (Auto) 21.2, [place] % (Auto) 5.0, Eos % (Auto) 2.5, Baso % (Auto) 0.7, Neut # (Auto) 3.3, Lymph # (Auto) 1.0, [place] # (Auto) 0.2, Eos # (Auto) 0.1, Baso # (Auto) 0.0 04/28/21 14:54: Sodium 143, Potassium 4.2, Chloride 109 H, Carbon Dioxide 26, Anion Gap 12.2, BUN 12, Creatinine 0.90, Estimated Creat Clear 105, Estimated GFR 86, Est GFR ( Amer) 104, Glucose 103 H, Calcium 9.4, Total Bilirubin 0.2, AST 22, ALT 15, Alkaline Phosphatase 70, Total Protein 6.8, Albumin 4.0, Globulin 2.8, Albumin/Globulin Ratio 1.4 Result diagrams: 04/28/21 14:54 04/28/21 14:54 Orders (Tests/Meds): ED MEDICATIONS Discontinued Medications Generic Name Dose Route Start Last Admin Trade Name Jason PRN Reason Stop Dose Admin Labetalol HCl 10 mg 04/28/21 16:03 Labetalol 20mg/4ml Syringe IV 04/28/21 16:04 ONCE ONE Medical Decision Narrative: Patient's presenting concern is headache. The ER was quite busy with very acute patients while the patient was here. Labs were ordered and labetalol was ordered for treatment but the patient became tired of waiting and walked out of the emergency department. Other than hearing the patient become angry and seeing him walk out of the emergency department, I did not have a chance to evaluate this patient. CT was ordered but the patient informed x-ray tech that he had an MRI completed recently and he declined CT of his head today. General Adult HPI - General Chief complaint: Headache Stated complaint: headache 215/107 at [facility] office Time Seen by Provider: 04/28/21 16:34 Mode of Arrival: Ambulatory Limitations: No Limitations Description of Symptoms (Recalled from ER Triage Doc. by RN): SENT IN FROM [facility] OFFICE FOR HYPERTENSION 215/106, C/O HEADACHE - History of Present Illness HPI narrative: Patient's presenting concern is headache. The ER was quite busy with very acute patients while the patient was here. Labs were ordered and labetalol was ordered for treatment but the patient became tired of waiting and walked out of the emergency department. Other than hearing the patient become angry and seeing him walk out of the emergency department, I did not have a chance to evaluate this patient. - Related Data Home Medications Medication Instructions Recorded Confirmed Hydrocodone/Acetaminophen 1 each PO Q6HP PRN 07/17/20 04/25/21 [Hydrocodone-Acetamin 10-325 mg] Omeprazole [Omeprazole 20mg 20 mg PO DAILY
--- NOTE | 2021-04-28 16:35 | PC.NURSE ---
INFORMED BY RN NOVEMBER THAT PT LEFT, PIV REMOVED, REFUSED TO SIGN AMA PAPERWORK.
[2021-04-28 16:36] VITALS: BP 00/00; PULSE 0; RESP 0; TEMP -17.7; TEMP 0
== END 2021-04-28 16:38 | disposition left against medical advice (07) ==
PROVIDERS: Emergency Provider Family Medicine; PCP Physician Assistant
DX: I16.0 Hypertensive urgency (principal); R51.9 Headache, unspecified; F41.8 Other specified anxiety disorders; Z86.73 Personal history of transient ischemic attack (TIA), and cerebral infarction without residual deficits
CPT/HCPCS: 80053; 85025; 99282

== ENCOUNTER → 2021-05-29 17:22 | Outpatient (CLI) | payer BC, SELFPAY ==
[2021-05-29 19:10] LABS: Chloride 103 mmol/L (98-107); Sodium 145 mmol/L (136-145)
[2021-05-29 19:13] LABS: Blood Urea Nitrogen 22 mg/dl (9-20); Carbon Dioxide 28 mmol/L (22.0-30.0); Estimated Glomerular Filt Rate 56 ml/min (>60); GFR (African American) 68 ML/MIN (>60)
[2021-05-29 19:14] LABS: Glucose 100 mg/dl (74-100)
== END ==
PROVIDERS: Visit Provider Physician Assistant
DX: N17.9 Acute kidney failure, unspecified (principal)
CPT/HCPCS: 80048

== ENCOUNTER 2021-10-11 01:55 | Emergency (ER) | payer BC, SELFPAY ==
[2021-10-11] VITALS (14 sets, daily range): BP systolic 73–116; BP diastolic 35–76; PULSE 54–82; RESP 11–20; TEMP 36.6–36.8; O2SAT 94–99; BMI 28.5
--- NOTE | 2021-10-11 01:55 | ECG_ITS ---
APPROVED REPORT Exam: Resting ECG HR:64 bpm ECG Measurements Heart Rate 64 AXES QRSd 95 QRS 2 QT 394 T 12 QTc 404 Conclusion ATRIAL FIBRILLATION ABNORMAL RHYTHM ECG UNCONFIRMED REPORT Electronically signed by : Bobo Britton MD 10/11/2021 08:28:36
--- NOTE | 2021-10-11 02:08 | XR_ITS ---
PROCEDURE INFORMATION: Exam: XR Pelvis Exam date and time: 10/11/2021 2:08 AM Age: 60 years old Clinical indication: Injury or trauma; Fall; Blunt trauma (contusions or hematomas); Bilateral; Pelvic region TECHNIQUE: Imaging protocol: XR pelvis. Views: 1 or 2 view. COMPARISON: CT ABDOMEN PELVIS WO CON 07/17/2020 11:20 AM FINDINGS: Bones/joints: No acute fracture or dislocation. Soft tissues: Unremarkable. IMPRESSION: No acute fracture or dislocation.
--- NOTE | 2021-10-11 02:08 | CT_ITS ---
PROCEDURE INFORMATION: Exam: CT Head Without Contrast Exam date and time: 10/11/2021 2:08 AM Age: 60 years old Clinical indication: Injury or trauma; Fall; Blunt trauma (contusions or hematomas); Without loss of consciousness; Additional info: Fall AMS on blood thinner TECHNIQUE: Imaging protocol: Computed tomography of the head without contrast. Radiation optimization: All CT scans at this facility use at least one of these dose optimization techniques: automated exposure control; mA and/or kV adjustment per patient size (includes targeted exams where dose is matched to clinical indication); or iterative reconstruction. COMPARISON: CT ANGIO HEAD 10/22/2020 1:27 AM FINDINGS: Brain: No evidence of acute intracranial hemorrhage. No acute parenchymal edema. No mass or shift. Cerebral ventricles: No ventriculomegaly. Paranasal sinuses: Visualized sinuses are unremarkable. No fluid levels. Mastoid air cells: Unremarkable as visualized. No mastoid effusion. Bones/joints: No acute fracture. Soft tissues: Unremarkable. IMPRESSION: No acute intracranial process.
--- NOTE | 2021-10-11 02:08 | XR_ITS ---
PROCEDURE INFORMATION: Exam: XR Chest Exam date and time: 10/11/2021 2:08 AM Age: 60 years old Clinical indication: Injury or trauma; Fall; Blunt trauma (contusions or hematomas) TECHNIQUE: Imaging protocol: XR of the chest. Views: 1 view. COMPARISON: CT CERVICAL SPINE WO CON 10/11/2021 2:16 AM FINDINGS: Lungs: Left lung atelectasis. Stigmata of old granulomatous disease. Mild bibasilar atelectasis. Pleural spaces: Unremarkable. No pleural effusion. No pneumothorax. Heart/Mediastinum: Unremarkable. No cardiomegaly. Bones/joints: Unremarkable. IMPRESSION: No acute findings.
--- NOTE | 2021-10-11 02:08 | CT_ITS ---
PROCEDURE INFORMATION: Exam: CT Cervical Spine Without Contrast Exam date and time: 10/11/2021 2:08 AM Age: 60 years old Clinical indication: Injury or trauma; Fall TECHNIQUE: Imaging protocol: Computed tomography images of the cervical spine without contrast. Radiation optimization: All CT scans at this facility use at least one of these dose optimization techniques: automated exposure control; mA and/or kV adjustment per patient size (includes targeted exams where dose is matched to clinical indication); or iterative reconstruction. COMPARISON: CT ANGIO NECK 10/22/2020 1:27 AM FINDINGS: Bones/joints: No acute fracture or dislocation. Discs/Spinal canal/Neural foramina: There are degenerative disc changes. Lungs: The lung apices are unremarkable. Soft tissues: Unremarkable. IMPRESSION: No acute fracture or dislocation. There is degenerative disc disease.
[2021-10-11 02:21] LABS: Basophils % 0.3 % (0.1-2.0); Eosinophils # 0.3 K/mm3 (0.0-0.4); Eosinophils % 5.6 % (0.1-12.0); Hematocrit 41.2 % (42.0-52.0); Hemoglobin 13.7 g/dL (14.1-18.0); Lymphocytes # 1.1 K/mm3 (0.7-4.5); Lymphocytes % 18.8 % (10-50); Mean Corpuscular HGB Conc 33.2 g/dL (31.8-35.4); Mean Corpuscular Volume 99.4 fl (80-94); Mean Platelet Volume 7.7 fl (7.4-10.4); Monocytes # 0.3 K/mm3 (0.1-1.0); Monocytes % 4.6 % (1.7-9.3); Neutrophils # 4.2 K/mm3 (1.8-7.8); Neutrophils % 70.7 % (37.0-80.0); Platelet Count 233 K/mm3 (142-424); Red Blood Count 4.14 M/mm3 (4.60-6.20); Red Cell Distribution Width 13.3 % (11.5-17.5)
[2021-10-11 02:26] LABS: Alanine Aminotransferase 17 U/L (12-78); Albumin Level 3.9 g/dl (3.5-5.0); Alkaline Phosphatase 69 U/L (38-126); Anion Gap 12.9 mEq/L (5-15); Aspartate Amino Transferase 24 U/L (17-59); Bilirubin,Direct 0.3 mg/dl (0.0-0.4); Bilirubin,Total 0.3 mg/dl (0.2-1.3); Bilirubin,Unconjugated 0.1 mg/dL (0.0-1.1); Blood Urea Nitrogen 25 mg/dl (9-20); Calcium 8.5 mg/dl (8.4-10.2); Carbon Dioxide 23 mmol/L (22.0-30.0); Chloride 105 mmol/L (98-107); Creatinine Clearance Estimated 40 mL/min (50-200); Estimated Glomerular Filt Rate 25 ml/min (>60); GFR (African American) 31 ML/MIN (>60); Glucose 204 mg/dl (74-100); Potassium 4.9 mmoL/L (3.5-5.1); Sodium 136 mmol/L (136-145); Total Protein,Serum 6.5 g/dl (6.3-8.2)
[2021-10-11 02:31] LABS: C-Reactive Protein 24.5 mg/L (0-4)
[2021-10-11 02:45] LABS: Procalcitonin 0.188 ng/mL (0.0-2.0)
[2021-10-11 02:48] LABS: Prothrombin Time 11.3 seconds (10.1-12.5); Troponin I < 0.01 ng/ml (0.00-0.034)
--- NOTE | 2021-10-11 02:51 | HMH.EDDIZZ ---
ED Disposition Clinical Impression: Orthostatic hypotension Adverse reaction to drug Qualifiers: Encounter type: initial encounter Qualified Code(s): T50.905A - Adverse effect of unspecified drugs, medicaments and biological substances, initial encounter Disposition: Home, Self-Care Condition on Discharge: Good Instructions: Dizziness, Nonvertigo Additional Instructions: fluids and see wednesday 10 at pcp Referrals: Paddy Velasco MD [Primary Care Provider] - - Critical Care Critical Care Time: No Attestation: On 10/11/21, the high probability of a clinically significant, sudden or life threatening deterioration of the following system(s) required my full and direct attention, intervention and personal management. The time I documented below is in addition to time spent performing reported procedures but includes the following listed in this critical care notation. Medical Decision Making - Medical Records Medical records reviewed: Yes: I reviewed the patient's medical records. - Alejandro Inquiry Pt receiving controlled substance: No Vital Signs: 10/11/21 01:56 10/11/21 02:58 10/11/21 03:01 Temperature 98.2 F Temperature Source Oral Pulse Rate Pulse Rate [Orthostatic Lying Right] 65 Pulse Rate [Orthostatic Sitting Right] 66 Pulse Rate [Orthostatic Standing Right] 65 Pulse Rate [Right Radial] 65 Respiratory Rate 18 15 Blood Pressure 89/43 L Blood Pressure [Orthostatic Lying Left Arm] 98/48 L Blood Pressure [Orthostatic Sitting Left Arm] 97/48 L Blood Pressure [Orthostatic Standing Left Arm] 73/35 L Blood Pressure [Right Arm] 80/50 L Blood Pressure Mean [Right Arm] 60 Blood Pressure Source [Right Arm] Manual Cuff/ Auscultation Blood Pressure Position [Right Arm] Sitting 02 Sat by Pulse Oximetry 95 Oxygen Delivery Method Room Air 10/11/21 03:08 10/11/21 03:15 10/11/21 03:30 Temperature Temperature Source Pulse Rate 70 69 Pulse Rate [Orthostatic Lying Right] Pulse Rate [Orthostatic Sitting Right] Pulse Rate [Orthostatic Standing Right] Pulse Rate [Right Radial] Respiratory Rate 15 20 15 Blood Pressure 92/52 L 90/73 L 89/55 L Blood Pressure [Orthostatic Lying Left Arm] Blood Pressure [Orthostatic Sitting Left Arm] Blood Pressure [Orthostatic Standing Left Arm] Blood Pressure [Right Arm] Blood Pressure Mean [Right Arm] Blood Pressure Source [Right Arm] Blood Pressure Position [Right Arm] 02 Sat by Pulse Oximetry 96 99 99 Oxygen Delivery Method Room Air Room Air Room Air 10/11/21 04:15 10/11/21 05:00 10/11/21 05:30 Temperature Temperature Source Pulse Rate 58 L 64 57 L Pulse Rate [Orthostatic Lying Right] Pulse Rate [Orthostatic Sitting Right] Pulse Rate [Orthostatic Standing Right] Pulse Rate [Right Radial] Respiratory Rate 15 15 11 L Blood Pressure 104/56 L 95/53 L 105/76 L Blood Pressure [Orthostatic Lying Left Arm] Blood Pressure [Orthostatic Sitting Left Arm] Blood Pressure [Orthostatic Standing Left Arm] Blood Pressure [Right Arm] Blood Pressure Mean [Right Arm] Blood Pressure Source [Right Arm] Blood Pressure Position [Right Arm] 02 Sat by Pulse Oximetry 94 L 95 Oxygen Delivery Method 10/11/21 05:45 Temperature Temperature Source Pulse Rate 56 L Pulse Rate [Orthostatic Lying Right] Pulse Rate [Orthostatic Sitting Right] Pulse Rate [Orthostatic Standing Right] Pulse Rate [Right Radial] Respiratory Rate 15 Blood Pressure 113/67 Blood Pressure [Orthostatic Lying Left Arm] Blood Pressure [Orthostatic Sitting Left Arm] Blood Pressure [Orthostatic Standing Left Arm] Blood Pressure [Right Arm] Blood Pressure Mean [Right Arm] Blood Pressure Source [Right Arm] Blood Pressure Position [Right Arm] 02 Sat by Pulse Oximetry 94 L Oxygen Delivery Method - Lab Data Lab results reviewed: Yes: I reviewed the patient's lab results. Lab Results 09/17
[2021-10-11 02:52] LABS: Erythrocyte Sedimentation Rate 21 mm/hr (0-20)
[2021-10-11 03:04] LABS: T4 (Thyroxine) 7.4 ug/dl (5.53-11.0)
[2021-10-11 03:18] LABS: Thyroid Stimulating Hormone 0.39 uIU/mL (0.465-4.68)
--- NOTE | 2021-10-11 03:49 | PC.NURSE ---
Pt says he is unable to give a urine sample yet
[2021-10-11 05:51] LABS: Troponin I < 0.01 ng/ml (0.00-0.034)
[2021-10-11 06:04] LABS: Chloride 107 mmol/L (98-107); Potassium 4.7 mmoL/L (3.5-5.1); Sodium 134 mmol/L (136-145)
[2021-10-11 06:07] LABS: Anion Gap 8.7 mEq/L (5-15); Blood Urea Nitrogen 25 mg/dl (9-20); Calcium 7.2 mg/dl (8.4-10.2); Carbon Dioxide 23 mmol/L (22.0-30.0); Creatinine Clearance Estimated 48 mL/min (50-200); Estimated Glomerular Filt Rate 31 ml/min (>60); GFR (African American) 37 ML/MIN (>60)
[2021-10-11 06:10] LABS: Glucose 91 mg/dl (74-100)
== END 2021-10-11 06:55 | disposition home or self-care (01) ==
PROVIDERS: Emergency Provider Emergency Medicine; PCP Emergency Medicine
DX: I95.0 Idiopathic hypotension (principal); T50.905A Adverse effect of unspecified drugs, medicaments and biological substances, initial encounter; F41.8 Other specified anxiety disorders; I10 Essential (primary) hypertension; Z86.73 Personal history of transient ischemic attack (TIA), and cerebral infarction without residual deficits; Z79.899 Other long term (current) drug therapy
CPT/HCPCS: 70450; 71045; 72125; 72170; 80048; 80076; 84145; 84436; 84443; 84484; 85025; 85610; 85651; 86140; 93005; 96365; 96366; 99283; 99284

== ENCOUNTER → 2021-10-13 10:59 | Outpatient (CLI) | payer BC, SELFPAY ==
[2021-10-13 12:22] LABS: Blood Urea Nitrogen 8 mg/dl (9-20); Calcium 9.3 mg/dl (8.4-10.2); Carbon Dioxide 25 mmol/L (22.0-30.0); Chloride 106 mmol/L (98-107); Estimated Glomerular Filt Rate 86 ml/min (>60); GFR (African American) 104 ML/MIN (>60); Glucose 129 mg/dl (74-100); Sodium 140 mmol/L (136-145)
== END ==
PROVIDERS: Visit Provider Physician Assistant
DX: R42 Dizziness and giddiness (principal); R79.89 Other specified abnormal findings of blood chemistry
CPT/HCPCS: 36415; 80048

== ENCOUNTER → 2021-12-15 18:57 | Outpatient (CLI) | payer BC, SELFPAY ==
[2021-12-15 14:36] LABS: Anion Gap 10.8 mEq/L (5-15); Blood Urea Nitrogen 13 mg/dl (9-20); Calcium 9.2 mg/dl (8.4-10.2); Carbon Dioxide 32 mmol/L (22.0-30.0); Chloride 103 mmol/L (98-107); Estimated Glomerular Filt Rate 56 ml/min (>60); GFR (African American) 68 ML/MIN (>60); Glucose 120 mg/dl (74-100); Potassium 3.8 mmoL/L (3.5-5.1); Sodium 142 mmol/L (136-145)
== END ==
PROVIDERS: Visit Provider Physician Assistant
DX: Z87.448 Personal history of other diseases of urinary system (principal)
CPT/HCPCS: 80048

== ENCOUNTER → 2022-04-14 14:52 | Outpatient (CLI) | payer BC, SELFPAY ==
[2022-04-14 15:07] LABS: Basophils # 0.1 K/mm3 (0-0.2); Basophils % 1.1 % (0.1-2.0); Eosinophils # 0.3 K/mm3 (0.0-0.4); Eosinophils % 3.1 % (0.1-12.0); Hematocrit 56.7 % (42.0-52.0); Lymphocytes # 1.1 K/mm3 (0.7-4.5); Lymphocytes % 13.3 % (10-50); Mean Corpuscular HGB Conc 33.2 g/dL (31.8-35.4); Mean Corpuscular Hemoglobin 32.7 pg (27.0-31.2); Mean Corpuscular Volume 98.5 fl (80-94); Mean Platelet Volume 8.4 fl (7.4-10.4); Monocytes # 0.4 K/mm3 (0.1-1.0); Monocytes % 4.3 % (1.7-9.3); Neutrophils # 6.5 K/mm3 (1.8-7.8); Neutrophils % 78.2 % (37.0-80.0); Platelet Count 363 K/mm3 (142-424); Red Blood Count 5.76 M/mm3 (4.60-6.20); Red Cell Distribution Width 13.8 % (11.5-17.5); White Blood Count 8.4 K/mm3 (4.8-10.8)
[2022-04-14 15:16] LABS: Alanine Aminotransferase 30 U/L (12-78); Albumin Level 4.8 g/dl (3.5-5.0); Albumin/Globulin Ratio 1.3 (1.1-1.8); Alkaline Phosphatase 160 U/L (38-126); Anion Gap 15.7 mEq/L (5-15); Aspartate Amino Transferase 34 U/L (17-59); Bilirubin,Total 0.6 mg/dl (0.2-1.3); Blood Urea Nitrogen 10 mg/dl (9-20); Calcium 10.1 mg/dl (8.4-10.2); Carbon Dioxide 28 mmol/L (22.0-30.0); Chloride 103 mmol/L (98-107); Chol/HDL Ratio 3.8 (1-3.5); Cholesterol 174 mg/dl (140-200); Estimated Glomerular Filt Rate 76 ml/min (>60); GFR (African American) 92 ML/MIN (>60); Globulin 3.6 g/dL (1.3-3.2); Glucose 153 mg/dl (74-100); HDL Cholesterol 46 mg/dl (40-60); Potassium 3.7 mmoL/L (3.5-5.1); Sodium 143 mmol/L (136-145); Total Protein,Serum 8.4 g/dl (6.3-8.2); Triglycerides 140 mg/dl (30-150); VLDL Cholesterol 28 mg/dL (0-40)
[2022-04-14 15:33] LABS: 25-OH Vitamin D, Total 30.9 ng/mL (30-100)
[2022-04-14 15:48] LABS: Thyroid Stimulating Hormone 0.73 uIU/mL (0.465-4.68)
[2022-04-14 16:16] LABS: Hemoglobin A1C 6.8 % (4.0-6.0)
[2022-04-14 19:10] LABS: Hemoglobin 18.8 g/dL (14.1-18.0)
[2022-04-16 08:56] LABS: Direct LDL Cholesterol 88 mg/dL (100-129)
== END ==
PROVIDERS: PCP Physician Assistant; Visit Provider Physician Assistant
DX: R73.09 Other abnormal glucose (principal); I10 Essential (primary) hypertension; I48.0 Paroxysmal atrial fibrillation; M54.50 Low back pain, unspecified; E66.3 Overweight; Z68.30 Body mass index [BMI] 30.0-30.9, adult; Z79.899 Other long term (current) drug therapy
CPT/HCPCS: 80053; 80061; 82306; 83036; 84443; 85025

== ENCOUNTER 2022-11-25 14:15 | Observation (INO) | payer BC, SELFPAY ==
[2022-11-25] VITALS (14 sets, daily range): BP systolic 145–200; BP diastolic 100–142; PULSE 58–153; RESP 13–22; TEMP 36.6–36.7; O2SAT 95–98; BMI 24.4; BMI 29.8
--- NOTE | 2022-11-25 14:21 | ECG_ITS ---
APPROVED REPORT Exam: Resting ECG HR:148 bpm ECG Measurements Heart Rate 148 AXES QRSd 87 QRS 21 QT 305 T -15 QTc 390 Conclusion ATRIAL FIBRILLATION WITH RAPID VENTRICULAR RESPONSE NONSPECIFIC T-WAVE ABNORMALITY ABNORMAL RHYTHM ECG UNCONFIRMED REPORT Electronically signed by : Bobo Britton MD 11/27/2022 09:35:14
--- NOTE | 2022-11-25 14:30 | XR_ITS ---
FINAL REPORT CLINICAL HISTORY: weak, tachy COMPARISON: 10/11/2021 FINDINGS: SINGLE-VIEW CHEST The heart size is normal. The mediastinum is normal. There is a left base opacity, may represent atelectasis or pneumonia. The right lung is clear. There is no pneumothorax. IMPRESSION: Left base atelectasis versus pneumonia. Reviewed, Interpreted and Dictated by Ambrosio Cast III, MD Transcribed by Shima Streeter Authenticated and [facility]
--- NOTE | 2022-11-25 14:32 | HMH.EDGENADL ---
Discharge Plan Disposition Patient Disposition: Admitted As Inpatient Condition: Fair Chief Complaint: Chest Pain Prescriptions Prescriptions: No Action metoprolol succinate 100 mg tablet extended release 24 hr 100 mg PO DAILY Qty: 90 3RF apixaban 5 mg tablet 5 mg PO BID Qty: 180 3RF nifedipine 60 mg tablet extended release 60 mg PO DAILY Qty: 90 3RF aspirin 81 mg tablet,delayed release (DR/EC) 81 mg PO DAILY Qty: 90 3RF gabapentin 600 mg tablet 600 mg PO TID Qty: 90 1RF hydrocodone-acetaminophen 7.5-325 mg tablet 1 tab PO BID PRN (Reason: pain) Qty: 60 0RF atorvastatin 40 mg tablet 40 mg PO HS clonidine HCl 0.1 mg tablet 0.1 mg PO BID tizanidine 4 mg tablet 4 mg PO TID sertraline 100 mg tablet 100 mg PO DAILY glipizide 5 mg tablet extended release 24hr 5 mg PO DAILY diazepam [Valium] 2 mg tablet 2 mg PO DAILY Referrals Follow up/Referrals: Ravinder Cedeño PA [Primary Care Provider] - See instructions Clinical Impressions Clinical Impression: Atrial fibrillation with RVR, Pneumonia Discharge ED Provider: Toby Fernandez General Adult HPI General Chief complaint: Chest Pain Stated complaint: Phys ref, High BP Time Seen by Provider: 11/25/22 14:30 Mode of Arrival: Ambulatory Source of Information: Patient Limitations: No Limitations Description of Symptoms (Recalled from ER Triage Doc. by RN): pt was sent over from ravinder cedeño office to be evaluated for high heart rate. heart rate in the office was noted to be around 160. pt went to be seen by pcp for refills and general not feeling well. pt does have known afib and take eliquis. pt reports cough, fatigue, chest heaviness. History of Present Illness HPI narrative: Patient is a 61-year-old male with past medical history of hypertension, hyperlipidemia, heart failure with preserved ejection fraction (55% most recently), atrial fibrillation on Eliquis who presents emergency department for evaluation of weakness. Patient was being seen at primary care clinic when he was noted to be in A-fib with RVR and was subsequently transported here for continued evaluation. Patient has had 48 hours of profuse diarrhea, sore throat, intermittent productive cough. Patient denies chest pain, acute rashes or arthralgias. Unknown if he was compliant with his medication this morning however otherwise he is compliant. No other acute complaints at this time. With respect to his cardiovascular medications which were faxed from pharmacy patient takes aspirin, Eliquis, atorvastatin, metoprolol extended release 100 mg, nifedipine extended release 60 mg. Related Data Home Medications Medication Instructions Recorded Confirmed atorvastatin 40 mg tablet 40 mg PO HS Cholesterol 11/25/22 11/25/22 clonidine HCl 0.1 mg tablet 0.1 mg PO BID blood pressure 11/25/22 11/25/22 diazepam 2 mg tablet (Valium) 2 mg PO DAILY Anxiety 11/25/22 11/25/22 glipizide 5 mg tablet, extended 5 mg PO DAILY Diabetes 11/25/22 11/25/22 release 24 hr sertraline 100 mg tablet 100 mg PO DAILY mood 11/25/22 11/25/22 tizanidine 4 mg tablet 4 mg PO TID Pain 11/25/22 11/25/22 Previous Rx's Medication Instructions Recorded apixaban 5 mg tablet 5 mg PO BID Thinner #180 tabs 03/09/22 metoprolol succinate 100 mg 100 mg PO DAILY High blood 03/09/22 tablet,extended release 24 hr pressure #90 tabs nifedipine 60 mg tablet,extended 60 mg PO DAILY High blood pressure 03/09/22 release #90 tabs aspirin 81 mg tablet,delayed 81 mg PO DAILY heart health #90 04/15/22 release tabs gabapentin 600 mg tablet 600 mg PO TID Pain #90 tabs 11/25/22 hydrocodone 7.5 mg-acetaminophen 1 tab PO BID PRN pain #60 tabs 11/25/22 325 mg tablet Allergies Allergy/AdvReac Type Severity Reaction Status Date / Time prednisone Allergy Severe Anaphylaxis Verified 11/25/22 13:45 rivaroxaban [From Xarelto] Allergy Rash Verified 11/25/22 13:45 lisinopril AdvReac Se
[2022-11-25 14:42] LABS: Coronavirus 19, PCR Not Detected (NotDetected); Influenza A, PCR Not Detected (NotDetected); Influenza B, PCR Not Detected (NotDetected)
[2022-11-25 14:52] LABS: Basophils # 0.1 K/mm3 (0-0.2); Basophils % 0.5 % (0.1-2.0); Eosinophils # 0.3 K/mm3 (0.0-0.4); Eosinophils % 2.9 % (0.1-12.0); Hematocrit 57.9 % (42.0-52.0); Lymphocytes # 1.9 K/mm3 (0.7-4.5); Lymphocytes % 16.5 % (10-50); Mean Corpuscular HGB Conc 33.3 g/dL (31.8-35.4); Mean Corpuscular Volume 96.1 fl (80-94); Mean Platelet Volume 9.1 fl (7.4-10.4); Monocytes # 0.6 K/mm3 (0.1-1.0); Monocytes % 4.8 % (1.7-9.3); Neutrophils # 8.8 K/mm3 (1.8-7.8); Neutrophils % 75.2 % (37.0-80.0); Platelet Count 262 K/mm3 (142-424); Red Blood Count 6.02 M/mm3 (4.60-6.20); White Blood Count 11.7 K/mm3 (4.8-10.8)
[2022-11-25 14:54] LABS: Chloride 101 mmol/L (98-107); Potassium 3.5 mmoL/L (3.5-5.1); Sodium 141 mmol/L (136-145)
[2022-11-25 14:56] LABS: Alanine Aminotransferase 30 U/L (12-78); Aspartate Amino Transferase 38 U/L (17-59); Blood Urea Nitrogen 14 mg/dl (9-20); Creatinine Clearance Estimated 74 mL/min (50-200); Estimated Glomerular Filt Rate 61 ml/min (>60); GFR (African American) 74 ML/MIN (>60)
[2022-11-25 14:57] LABS: Albumin Level 4.7 g/dl (3.5-5.0); Albumin/Globulin Ratio 1.1 (1.1-1.8); Alkaline Phosphatase 133 U/L (38-126); Anion Gap 16.5 mEq/L (5-15); Bilirubin,Total 1.1 mg/dl (0.2-1.3); Calcium 9.1 mg/dl (8.4-10.2); Carbon Dioxide 27 mmol/L (22.0-30.0); Globulin 4.3 g/dL (1.3-3.2); Glucose 199 mg/dl (74-100)
[2022-11-25 15:21] LABS: Hemoglobin 19.3 g/dL (14.1-18.0)
[2022-11-25 15:27] LABS: Thyroid Stimulating Hormone 2.17 uIU/mL (0.465-4.68)
[2022-11-25 15:31] LABS: Free T4 (Free Thyroxine) 1.36 ng/dl (0.78-2.19)
[2022-11-25 18:32] LABS: NT Pro Brain Natriuretic Pep. 293 pg/mL (0-125)
--- NOTE | 2022-11-25 18:36 | PC.NURSE ---
report called to chelsey palomino rn
--- NOTE | 2022-11-25 18:58 | PC.NURSE ---
pt taken to med surg floor
--- NOTE | 2022-11-25 19:02 | PC.NURSE ---
arrived by w/c to floor from ED
--- NOTE | 2022-11-25 19:29 | EXP.HP ---
History of Present Illness *Admission Date: 11/25/22 *Reason for visit:: Weakness, cough, sore throat, diarrhea *History of present illness: Mr. Calvillo is a 61-year-old male with a past medical history of Atrial Fibrillation on chronic anticoagulation, T2DM, Hypertension, HFpEF, Anxiety Disorder. He presents to [facility] due to a 48 hour period of cough, diarrhea and sore throat. He denies known fevers or similar sick contacts. In the ER on presentation, HR was 153, EKG showed Atrial Fibrillation with rapid ventricular response, the patient was given a dose of Metoprolol 5 mg iv with improvement in heart rate. CBC showed an elevated hemoglobin and hematocrit at 19.3 and 57.9. Potassium was 3.5, creatinine was 1.20. TSH and Free T4 were normal at 2.17 and 1.36. Covid and Flu testing were negative. Cxray showed a left base opacity. The patient was admitted with initial impression: Atrial Fibrillation with rapid ventricular response and Community Acquired Pneumonia. [facility] Disclaimer: The information contained in this section may have been updated after the patient was seen, as this information can be updated by other users. Medical History (Updated 11/26/22 @ 10:46 by Jennifer Marks APRN) Acute renal failure JOHN (acute kidney injury) Anxiety Atrial fibrillation with RVR CAD (coronary artery disease) Dizziness Fatty liver Gastritis History of acute renal failure HLD (hyperlipidemia) Hypertension Hypertensive urgency Lumbar degenerative disc disease Nonsustained ventricular tachycardia Pancreatic cyst Pancreatic cyst Sinusitis Stroke TIA (transient ischemic attack) Family History (Updated 11/26/22 @ 00:44 by Siobhan Chaudhari RN) Other Family history of diabetes mellitus type II Family history of hyperlipidemia Family history of hypertension Social History (Updated 11/26/22 @ 00:44 by Siobhan Chaudhari RN) Smoking Status: Never smoker alcohol intake: never substance use type: denies use current occupational status: disabled Travel in the last 8 weeks: None household members: significant other housing: house current occupation: [employer] current occupational exposures/hazards: No caffeine: Yes Review of Systems Review of Systems Review of systems:: pertinent systems reviewed and negative unless documented below Constitutional Constitutional: Reports system reviewed and no additional complaints, except as documented Eyes Eyes: Reports system reviewed and no additional complaints, except as documented ENT Ears, Nose, Mouth, and Throat: Reports sore throat *Cardiovascular Cardiovascular: Reports system reviewed and no additional complaints, except as documented *Respiratory Respiratory: Reports cough *Gastrointestinal Gastrointestinal: Reports diarrhea *Genitourinary Genitourinary: Reports system reviewed and no additional complaints, except as documented *Musculoskeletal Musculoskeletal: Reports system reviewed and no additional complaints, except as documented Integumentary/Breasts Skin/Breast: Reports system reviewed and no additional complaints, except as documented *Neurologic Neurologic: Reports system reviewed and no additional complaints, except as documented Psychiatric Psychiatric: Reports system reviewed and no additional complaints, except as documented Endocrine Endocrine: Reports system reviewed and no additional complaints, except as documented Hematologic/Lymphatic Hematologic/Lymphatic: Reports system reviewed and no additional complaints, except as documented Allergic/Immunologic Allergic/Immunologic: Reports system reviewed and no additional complaints, except as documented Meds Home Medications and Allergies Home Medications Medication Instructions Recorded Confirmed Type metoprolol succinate 100 mg 100 mg PO DAILY High blood 03/09/22 11/25/22 Rx tablet,extended release 24 hr pressure #90 tabs nifedipine 60 mg tablet,extended 60 mg PO DAILY Hi
--- NOTE | 2022-11-25 20:18 | ECG_ITS ---
APPROVED REPORT Exam: Resting ECG HR:119 bpm ECG Measurements Heart Rate 119 AXES QRSd 98 QRS -27 QT 361 T 16 QTc 431 Conclusion ATRIAL FIBRILLATION WITH RAPID VENTRICULAR RESPONSE BORDERLINE LEFT AXIS DEVIATION [QRS AXIS < -20] ABNORMAL RHYTHM ECG UNCONFIRMED REPORT Electronically signed by : Bobo Britton MD 11/27/2022 09:34:32
[2022-11-25 21:56] LABS: POC Glucose,Bedside 145 (70-110)
[2022-11-26] VITALS (12 sets, daily range): BP systolic 91–180; BP diastolic 42–100; PULSE 54–130; RESP 16–20; TEMP 36.5–36.9; O2SAT 91–97
--- NOTE | 2022-11-26 02:37 | PC.NURSE ---
HR LEADER NOTIFIED AT THIS TIME THAT PT WENT INTO A-FLUTTER WITH A 3:1 TO 4:1 RATIO. HR LEADER STATED TO MONITOR HIM AND TO NOTIFY HER IF PT BECAME SYMPTOMATIC.
--- NOTE | 2022-11-26 03:56 | PC.NURSE ---
PT HAS RESTED WELL. PT HAS C/O NAUSEA X2 AND VOMITING X1 THIS SHIFT. NO C/O CHEST TIGHTNESS OR PAIN. AMBULATING INDEPENDENTLY. OTHER VITAL SIGNS ARE STABLE. PT HAS BEEN A-FIB TO A-FLUTTER WITH A 3:1 TO 4: RATIO. THIRD LOADER AWARE. PT ASYMPTOMATIC.
[2022-11-26 05:32] LABS: POC Glucose,Bedside 172 (70-110)
[2022-11-26 06:12] LABS: Basophils # 0.1 K/mm3 (0-0.2); Basophils % 0.6 % (0.1-2.0); Eosinophils # 0.1 K/mm3 (0.0-0.4); Eosinophils % 1.4 % (0.1-12.0); Hematocrit 54.5 % (42.0-52.0); Lymphocytes % 22.7 % (10-50); Mean Corpuscular HGB Conc 33.7 g/dL (31.8-35.4); Mean Corpuscular Hemoglobin 32.3 pg (27.0-31.2); Mean Corpuscular Volume 95.8 fl (80-94); Mean Platelet Volume 8.9 fl (7.4-10.4); Monocytes # 0.4 K/mm3 (0.1-1.0); Monocytes % 4.9 % (1.7-9.3); Neutrophils # 6.3 K/mm3 (1.8-7.8); Neutrophils % 70.4 % (37.0-80.0); Platelet Count 224 K/mm3 (142-424); Red Blood Count 5.69 M/mm3 (4.60-6.20); Red Cell Distribution Width 14.1 % (11.5-17.5); White Blood Count 8.9 K/mm3 (4.8-10.8)
[2022-11-26 06:14] LABS: Chloride 104 mmol/L (98-107); Sodium 143 mmol/L (136-145)
[2022-11-26 06:15] LABS: Potassium 3.7 mmoL/L (3.5-5.1)
[2022-11-26 06:17] LABS: Alanine Aminotransferase 31 U/L (12-78); Alkaline Phosphatase 114 U/L (38-126); Anion Gap 17.7 mEq/L (5-15); Aspartate Amino Transferase 33 U/L (17-59); Blood Urea Nitrogen 15 mg/dl (9-20); Carbon Dioxide 25 mmol/L (22.0-30.0); Creatinine Clearance Estimated 99 mL/min (50-200); Estimated Glomerular Filt Rate 68 ml/min (>60); GFR (African American) 82 ML/MIN (>60); Phosphorous 3.1 mg/dl (2.5-4.5)
[2022-11-26 06:18] LABS: Albumin Level 4.3 g/dl (3.5-5.0); Albumin/Globulin Ratio 1.2 (1.1-1.8); Calcium 8.7 mg/dl (8.4-10.2); Globulin 3.5 g/dL (1.3-3.2); Glucose 149 mg/dl (74-100); Magnesium 1.7 mg/dl (1.6-2.3); Total Protein,Serum 7.8 g/dl (6.3-8.2)
[2022-11-26 06:26] LABS: Hemoglobin 18.2 g/dL (14.1-18.0)
--- NOTE | 2022-11-26 06:28 | XR_ITS ---
FINAL REPORT CLINICAL HISTORY: persistent vomiting COMPARISON: None FINDINGS: ABDOMEN SINGLE VIEW / KUB A single view of the abdomen was obtained with a coned down view of the pelvis. There is a nonobstructive bowel gas pattern. There is a moderate amount of retained stool. There are no abnormally dilated loops of small bowel. No abnormal calcification is identified. IMPRESSION: Moderate retained stool with a nonobstructive bowel gas pattern. Reviewed, Interpreted and Dictated by Ambrosio Cast III, MD Transcribed by Zahraa Torres Authenticated and [facility]
--- NOTE | 2022-11-26 07:47 | HMH.PHAINT1 ---
Pharmacy Intervention Comments: Reconciled patient's home medications using pharmacy fill history.
--- NOTE | 2022-11-26 10:42 | EXP.CARD.CON ---
History of Present Illness History of Present Illness Consult date: 11/26/22 Requesting physician: Yao Lang Consult reason: atrial fibrillation Chief complaint: afib History of present illness: This is a 61-year-old gentleman who presented to the emergency department with atrial fibrillation. He has a known history of chronic atrial fibrillation on oral anticoagulation, type 2 diabetes, hypertension and HFpEF. The patient states that he went to see his primary care provider yesterday for a regular follow-up visit and he was told that his heart rate was around 160 bpm and he was told to go to the emergency department. Once the patient was in the emergency department he was found to be in atrial fibrillation with RVR, heart rate was around 150. The patient was given a dose of IV metoprolol and he did have improvement in his heart rate. The patient was subsequently admitted to the hospital for atrial fibrillation with RVR as well as community-acquired pneumonia. The patient states that he had been having a cough as well as weakness and diarrhea. He denied any chest pain or pressure. He states that sometimes he is short of breath with exertion. This improves with rest. He denies any lower extremity edema. He denies any fever, chills, nausea, vomiting, diarrhea, PND or orthopnea. [facility] Disclaimer: The information contained in this section may have been updated after the patient was seen, as this information can be updated by other users. Medical History (Updated 11/26/22 @ 10:46 by Jennifer Marks APRN) Acute renal failure JOHN (acute kidney injury) Anxiety Atrial fibrillation with RVR CAD (coronary artery disease) Dizziness Fatty liver Gastritis History of acute renal failure HLD (hyperlipidemia) Hypertension Hypertensive urgency Lumbar degenerative disc disease Nonsustained ventricular tachycardia Pancreatic cyst Pancreatic cyst Sinusitis Stroke TIA (transient ischemic attack) Family History (Updated 11/26/22 @ 00:44 by Siobhan Chaudhari RN) Other Family history of diabetes mellitus type II Family history of hyperlipidemia Family history of hypertension Social History (Updated 11/26/22 @ 00:44 by Siobhan Chaudhari RN) Smoking Status: Never smoker alcohol intake: never substance use type: denies use current occupational status: disabled Travel in the last 8 weeks: None household members: significant other housing: house current occupation: [employer] current occupational exposures/hazards: No caffeine: Yes Review of Systems Review of Systems Review of systems:: pertinent systems reviewed and negative unless documented below Constitutional Constitutional: Reports system reviewed and no additional complaints, except as documented, Denies fever(s), Reports lethargy and Reports weakness Eyes Eyes: Reports system reviewed and no additional complaints, except as documented ENT Ears, Nose, Mouth, and Throat: Reports system reviewed and no additional complaints, except as documented *Cardiovascular Cardiovascular: Reports system reviewed and no additional complaints, except as documented, Denies chest pain, Reports dyspnea on exertion, Reports irregular heart rhythm and Reports rapid heart rate *Respiratory Respiratory: Reports system reviewed and no additional complaints, except as documented, Reports chest congestion, Reports cough and Reports dyspnea on exertion *Gastrointestinal Gastrointestinal: Reports system reviewed and no additional complaints, except as documented and Reports diarrhea *Genitourinary Genitourinary: Reports system reviewed and no additional complaints, except as documented *Musculoskeletal Musculoskeletal: Reports system reviewed and no additional complaints, except as documented Integumentary/Breasts Skin/Breast: Reports system reviewed and no additional complaints, except as documented *Neurologic Neurologic: Reports system reviewed and no additional complaints, except as docu
--- NOTE | 2022-11-26 14:43 | PC.NURSE ---
Diltiazem gtt placed on standby due to hypotension. MD Roderick Lang aware.
[2022-11-26 15:58] LABS: POC Glucose,Bedside 110 (70-110)
--- NOTE | 2022-11-26 17:48 | EXP.ACUTE.PN ---
Subjective *Date: 11/26/22 *Time: 17:48 Interval history: Remained tachycardic. Patient feels well. No concerns or complaints at this time. Medical Exam Vital signs and Labs for Last 24 Hours: Vital Signs Temp Pulse Pulse Resp BP BP Pulse Ox 11/26/22 16:00 66 145/63 H 97 11/26/22 12:00 70 11/26/22 08:00 80 11/26/22 12:00 60 11/26/22 08:00 130 H 11/26/22 12:00 63 19 94/49 L 92 L 11/26/22 11:08 104 H 20 124/80 91 L 11/26/22 11:28 98.5 F 100 H 18 124/80 91 L 11/26/22 07:38 98.5 F 129 H 18 180/80 H 96 11/26/22 04:00 90 11/26/22 04:00 97.8 F 100 H 18 176/100 H 96 11/26/22 00:00 60 11/26/22 00:00 97.7 F 81 18 143/93 H 95 11/25/22 20:00 150 H 11/25/22 20:13 180/100 H 11/25/22 20:00 97.9 F 141 H 18 200/142 H 98 11/25/22 19:08 97.8 F 58 L 18 169/118 H 98 11/25/22 18:41 98.0 F 78 18 145/103 H 11/25/22 18:01 144 H 20 186/122 H 96 Intake and Output 11/26/22 11/26/22 11/26/22 07:59 15:59 23:59 Intake Total 1966 Output Total 0 / 0 0 / 0 Balance 1966 Intake: Intake, Oral Amount 240 / 240 Intake, Total IV Amount 1727 / 1727 0.9 % Sodium Chloride 1000ML 1, 1727 / 1727 000 ml @ 75 mls/hr IV .[id number] [facility] Rx#:[id number] Output: Output, Urine Amount 0 / 0 0 / 0 Other: Number of Unmeasured Voids 1 1 Weight 100.726 kg 100.72 kg Patient Weight 11/26/22 23:59 Weight 100.72 kg Laboratory Results - last 24 hr 11/25/22 14:25: NT-Pro-B Natriuret Pep 293 H 11/25/22 20:18: POC Glucose 145 H 11/26/22 05:07: POC Glucose 172 H 11/26/22 05:35: WBC 8.9, RBC 5.69, Hgb 18.2 H, Hct 54.5 H, MCV 95.8 H, MCH 32.3 H, MCHC 33.7, RDW 14.1, Plt Count 224, MPV 8.9, Neut % (Auto) 70.4, Lymph % (Auto) 22.7, [place] % (Auto) 4.9, Eos % (Auto) 1.4, Baso % (Auto) 0.6, Neut # (Auto) 6.3, Lymph # (Auto) 2.0, [place] # (Auto) 0.4, Eos # (Auto) 0.1, Baso # (Auto) 0.1 11/26/22 05:35: Sodium 143, Potassium 3.7, Chloride 104, Carbon Dioxide 25, Anion Gap 17.7 H, BUN 15, Creatinine 1.10, Estimated Creat Clear 99, Estimated GFR 68, Est GFR ( Amer) 82, Glucose 149 H D, Calcium 8.7, Phosphorus 3.1, Magnesium 1.7 D, Total Bilirubin 1.0, AST 33, ALT 31, Alkaline Phosphatase 114, Total Protein 7.8, Albumin 4.3, Globulin 3.5 H, Albumin/Globulin Ratio 1.2 11/26/22 15:52: POC Glucose 110 I & O for Labs for Last 24 Hours: Intake & Output 11/23/22 11/24/22 11/25/22 11/26/22 23:59 23:59 23:59 23:59 Intake Total 1966 Output Total 0 / 0 Balance 1966 Weight 99.875 kg 100.72 kg Constitutional: Present no acute distress Respiratory: Present normal respiratory effort Cardiac: Present S1/S2 and Tachycardia GI: Present normal bowel sounds; Absent tenderness Extremities: Present normal inspection and full ROM Skin: Present intact; Absent erythema Neuro: Present Grossly Intact and moves all extremities Assessment and Plan *Assessment and plan (1) Atrial fibrillation with RVR: Status: Acute Category: Medical Code(s): I48.91 - Unspecified atrial fibrillation (2) Community acquired pneumonia: Status: Acute Category: Medical Code(s): J18.9 - Pneumonia, unspecified organism (3) Diarrhea: Status: Acute Category: Medical Code(s): R19.7 - Diarrhea, unspecified (4) Sore throat: Status: Acute Category: Medical Code(s): J02.9 - Acute pharyngitis, unspecified (5) CHF (congestive heart failure): Status: Acute Qualifiers: Heart failure type: diastolic Heart failure chronicity: acute on chronic Qualified Code(s): I50.33 - Acute on chronic diastolic (congestive) heart failure Category: Medical Code(s): I50.9 - Heart failure, unspecified (6) JOHN (acute kidney injury): Status: Acute Category: Medical Code(
[2022-11-26 17:49] LABS: POC Glucose,Bedside 145 (70-110)
[2022-11-26 17:50] LABS: POC Glucose,Bedside 137 (70-110)
[2022-11-26 21:07] LABS: POC Glucose,Bedside 119 (70-110)
[2022-11-26 21:35] LABS: Strep Scrn Group A (Rapid) Negative (Negative)
[2022-11-27] VITALS (10 sets, daily range): BP systolic 122–169; BP diastolic 74–117; PULSE 57–92; RESP 11–20; TEMP 36.6–36.8; O2SAT 92–97; BMI 30.2
--- NOTE | 2022-11-27 00:58 | PC.NURSE ---
notified AURELIANO Garcia of pt having intermittent bradycardia into 30-40's, pt mentating well and is in no distress, when wake pt up to ask if alright pt's HR goes back to 50-60's, MOTORIZED SQUAD SERGEANT to put in prn atropine order if pt's HR was to sustain less than 40
[2022-11-27 05:49] LABS: Basophils % 0.5 % (0.1-2.0); Eosinophils # 0.3 K/mm3 (0.0-0.4); Eosinophils % 4.2 % (0.1-12.0); Hematocrit 50.5 % (42.0-52.0); Hemoglobin 16.9 g/dL (14.1-18.0); Lymphocytes # 1.4 K/mm3 (0.7-4.5); Lymphocytes % 23.1 % (10-50); Mean Corpuscular HGB Conc 33.5 g/dL (31.8-35.4); Mean Corpuscular Hemoglobin 32.1 pg (27.0-31.2); Mean Platelet Volume 8.7 fl (7.4-10.4); Monocytes # 0.3 K/mm3 (0.1-1.0); Monocytes % 5.3 % (1.7-9.3); Neutrophils % 66.9 % (37.0-80.0); Platelet Count 203 K/mm3 (142-424); Red Blood Count 5.26 M/mm3 (4.60-6.20); Red Cell Distribution Width 14.2 % (11.5-17.5)
[2022-11-27 05:54] LABS: Chloride 103 mmol/L (98-107); Potassium 3.8 mmoL/L (3.5-5.1); Sodium 141 mmol/L (136-145)
[2022-11-27 05:57] LABS: Anion Gap 11.8 mEq/L (5-15); Blood Urea Nitrogen 17 mg/dl (9-20); Calcium 8.6 mg/dl (8.4-10.2); Carbon Dioxide 30 mmol/L (22.0-30.0); Cholesterol 159 mg/dl (140-200); Creatinine Clearance Estimated 92 mL/min (50-200); Estimated Glomerular Filt Rate 61 ml/min (>60); GFR (African American) 74 ML/MIN (>60); Glucose 111 mg/dl (74-100); Triglycerides 265 mg/dl (30-150); VLDL Cholesterol 53 mg/dL (0-40)
[2022-11-27 05:58] LABS: Chol/HDL Ratio 5.5 (1-3.5); HDL Cholesterol 29 mg/dl (40-60)
[2022-11-27 06:08] LABS: Direct LDL Cholesterol 90.25 mg/dL (100-129)
[2022-11-27 06:14] LABS: POC Glucose,Bedside 103 (70-110)
--- NOTE | 2022-11-27 09:49 | EXP.CARD.PN ---
Subjective Subjective Date: 11/27/22 Time: 09:30 Principal diagnosis: atrial fibrillation Interval history: This is a 61-year-old gentleman who was admitted to the hospital with atrial fibrillation with RVR. The patient does have known chronic atrial fibrillation on long-term anticoagulation. When he he arrived to the emergency department he was found to be in atrial fibrillation with a heart rate around 150 beats per minute. The patient was started on a diltiazem drip yesterday. He has rate controlled. Overnight his diltiazem was stopped but he was not started on any oral diltiazem. We will get this started today. This morning he denies any chest pain or pressure. He denies any shortness of breath or edema. He denies any fever, chills, nausea, vomiting, diarrhea, PND or orthopnea. The patient states that he is feeling much better today. Exam Data for Last 24 hours Vital signs and Labs for Last 24 Hours: Temp Pulse Resp BP Pulse Ox 97.9 F 89 16 169/117 H 95 11/27/22 08:00 11/27/22 06:00 11/27/22 06:00 11/27/22 06:00 11/27/22 06:00 Laboratory Results - last 24 hr 11/25/22 20:32: Group A Strep Rapid Negative 11/26/22 11:55: POC Glucose 145 H 11/26/22 15:52: POC Glucose 110 11/26/22 17:00: POC Glucose 137 H 11/26/22 20:41: POC Glucose 119 H 11/27/22 05:40: WBC 6.0 D, RBC 5.26, Hgb 16.9, Hct 50.5, MCV 96.0 H, MCH 32.1 H, MCHC 33.5, RDW 14.2, Plt Count 203, MPV 8.7, Neut % (Auto) 66.9, Lymph % (Auto) 23.1, [place] % (Auto) 5.3, Eos % (Auto) 4.2, Baso % (Auto) 0.5, Neut # (Auto) 4.0, Lymph # (Auto) 1.4, [place] # (Auto) 0.3, Eos # (Auto) 0.3, Baso # (Auto) 0.0 11/27/22 05:40: Sodium 141, Potassium 3.8, Chloride 103, Carbon Dioxide 30, Anion Gap 11.8, BUN 17, Creatinine 1.20, Estimated Creat Clear 92, Estimated GFR 61, Est GFR ( Amer) 74, Glucose 111 H, Calcium 8.6, Triglycerides 265 H, Cholesterol 159, LDL Cholesterol Direct 90.25 L, VLDL Cholesterol 53 H, HDL Cholesterol 29 L, Cholesterol/HDL Ratio 5.5 H 11/27/22 06:02: POC Glucose 103 I & O for Last 24 hours: Intake & Output 11/24/22 11/25/22 11/26/22 11/27/22 23:59 23:59 23:59 23:59 Intake Total 2168 / 2168 783 / 783 Output Total 0 / 0 1350 / 1350 Balance 2168 / 2168 -567 / -567 Weight 220 lb 3 oz 222 lb 0.793 oz 223 lb 9.6 oz Narrative: Telemetry strip shows atrial fibrillation with a rate of 92 bpm. Constitutional Constitutional: no acute distress and obese *Routine HEENT Exam Head: Present normocephalic and atraumatic ENT: Present mucous membranes moist *Routine Neck Exam Neck: Present supple, full ROM and normal carotid upstroke; Absent JVD, carotid bruit or lymphadenopathy *Routine Respiratory Exam Respiratory: Present CTA bilaterally, normal respiratory effort, able to speak in complete sentences and symmetric chest movement *Routine Cardiovascular Exam Cardiovascular: Present Normal S1, Normal S2 and irregularly irregular; Absent murmur or gallop *Routine Abdominal Exam Abdominal: Present soft and normoactive bowel sounds; Absent tenderness, distended or organomegaly *Routine Extremities Exam Extremities: Present full ROM, pulses intact and normal capillary refill; Absent cyanosis, clubbing or edema *Routine Skin Exam Skin: Present intact and warm; Absent erythema *Routine Neurological Exam Neurological: Present alert, oriented X3 and CN II-XII intact; Absent sensory deficit or motor deficit Routine Psychiatric Exam Psychiatric: Present normal affect Progress Note: A&P Assessment and plan (1) Community acquired pneumonia: Status: Acute (2) Atrial fibrillation with RVR: Status: Acute (3) Diarrhea: Status: Acute (4) Sore throat: Status: Acute (5) CHF (congestive heart failure): Status: Acute (6) JOHN (acute kidney injury): Status: Acute (7) Hypertension: Status: Acute (8) CAD (coronary artery disease): Status: Chronic (9) HLD (hyperlipidemia): Status: Chronic Assessment a
--- NOTE | 2022-11-27 10:37 | PC.NURSE ---
transfer pt out of stepdown per Dr Lang [id number]
--- NOTE | 2022-11-27 11:50 | PC.NURSE ---
courtesy tech note; rounded on pt, pt denied the need for drink, need to use the bathroom, or need to reposition. call light within reach, no further requests at this time. Yesica Miles, SRNA
[2022-11-27 12:36] LABS: POC Glucose,Bedside 134 (70-110)
--- NOTE | 2022-11-27 13:01 | EXP.DC.SUM ---
General Admission date:: 11/25/22 Discharge date: 11/27/22 HPI HPI HPI: Mr. Calvillo is a 61-year-old male with a past medical history of Atrial Fibrillation on chronic anticoagulation, T2DM, Hypertension, HFpEF, Anxiety Disorder. He presents to [facility] due to a 48 hour period of cough, diarrhea and sore throat.? He denies known fevers or similar sick contacts.? In the ER on presentation, HR was 153, EKG showed Atrial Fibrillation with rapid ventricular response, the patient was given a dose of Metoprolol 5 mg iv with improvement in heart rate.? CBC showed an elevated hemoglobin and hematocrit at 19.3 and 57.9.? Potassium was 3.5, creatinine was 1.20.? TSH and Free T4 were normal at 2.17 and 1.36.? Covid and Flu testing were negative.? Cxray showed a left base opacity. The patient was admitted with initial impression:? Atrial Fibrillation with rapid ventricular response and Community Acquired Pneumonia.? Hospital Course Hospital Course Hospital Course: 61-year-old male admitted for atrial fibrillation with RVR. Cardiology was consulted. Continued anticoagulation. Started on IV Cardizem. Metoprolol succinate increased to 100 mg. Patient converted to Cardizem 180 daily resolution of tachycardia. Patient also had community-acquired pneumonia left lower lobe opacity. Received Rocephin and azithromycin while inpatient. Symptomatic improvement of pneumonia. Will be discharged with follow-up with primary care physician and cardiology. Exam Data for Last 24 hours Vital signs and Labs for Last 24 Hours: Temp Pulse Resp BP Pulse Ox 97.9 F 89 18 129/79 92 L 11/27/22 11:36 11/27/22 11:36 11/27/22 11:36 11/27/22 11:36 11/27/22 11:36 Laboratory Results - last 24 hr 11/25/22 20:32: Group A Strep Rapid Negative 11/26/22 11:55: POC Glucose 145 H 11/26/22 15:52: POC Glucose 110 11/26/22 17:00: POC Glucose 137 H 11/26/22 20:41: POC Glucose 119 H 11/27/22 05:40: WBC 6.0 D, RBC 5.26, Hgb 16.9, Hct 50.5, MCV 96.0 H, MCH 32.1 H, MCHC 33.5, RDW 14.2, Plt Count 203, MPV 8.7, Neut % (Auto) 66.9, Lymph % (Auto) 23.1, [place] % (Auto) 5.3, Eos % (Auto) 4.2, Baso % (Auto) 0.5, Neut # (Auto) 4.0, Lymph # (Auto) 1.4, [place] # (Auto) 0.3, Eos # (Auto) 0.3, Baso # (Auto) 0.0 11/27/22 05:40: Sodium 141, Potassium 3.8, Chloride 103, Carbon Dioxide 30, Anion Gap 11.8, BUN 17, Creatinine 1.20, Estimated Creat Clear 92, Estimated GFR 61, Est GFR ( Amer) 74, Glucose 111 H, Calcium 8.6, Triglycerides 265 H, Cholesterol 159, LDL Cholesterol Direct 90.25 L, VLDL Cholesterol 53 H, HDL Cholesterol 29 L, Cholesterol/HDL Ratio 5.5 H 11/27/22 06:02: POC Glucose 103 11/27/22 12:02: POC Glucose 134 H I & O for Last 24 hours: Intake & Output 11/24/22 11/25/22 11/26/22 11/27/22 23:59 23:59 23:59 23:59 Intake Total 2168 / 2168 1023 / 1023 Output Total 0 / 0 1350 / 1350 Balance 2168 / 2168 -327 / -327 Weight 99.875 kg 100.72 kg 101.423 kg Narrative: Telemetry strip shows atrial fibrillation with a rate of 92 bpm. Constitutional Constitutional: no acute distress and obese *Routine HEENT Exam Head: Present normocephalic and atraumatic ENT: Present mucous membranes moist *Routine Neck Exam Neck: Present supple, full ROM and normal carotid upstroke; Absent JVD, carotid bruit or lymphadenopathy *Routine Respiratory Exam Respiratory: Present CTA bilaterally, normal respiratory effort, able to speak in complete sentences and symmetric chest movement *Routine Cardiovascular Exam Cardiovascular: Present Normal S1, Normal S2 and irregularly irregular; Absent murmur or gallop *Routine Abdominal Exam Abdominal: Present soft and normoactive bowel sounds; Absent tenderness, distended or organomegaly *Routine Extremities Exam Extremities: Present full ROM, pulses intact and normal capillary refill; Absent cyanosis, clubbing or edema *Routine Skin Exam Skin: Present intact and warm; Absent erythema *Routine Neurological Exam Neurological:
--- NOTE | 2022-11-27 13:33 | HMH.PHAINT1 ---
Pharmacy Intervention Comments: DISCHARGE MEDICATION COUNSELING PROVIDED. DISCUSSED STOPPING CLONIDINE AND NIFEDIPINE AND STARTING DILTIAZEM (FOR BP/HEART RATE, DIZZINESS, LIGHTHEADEDNESS, SLOWED HEART RATE AND LOWER LIMB SWELLING POSSIBLE). PATIENT VERBALIZED NO QUESTIONS AT THIS TIME.
--- NOTE | 2022-11-30 15:35 | CARE MANAGER ---
Attempted post-discharge phone interview, no answer.
--- NOTE | 2022-12-01 12:55 | CARE MANAGER ---
Attempted to contact patient related to hospital discharge x2. Left VM message. SHREYA Ordaz
[2022-12-01 14:13] LABS: Body Fluid Culture, Sterile Not indicated. (.); Organism ID Not indicated. (.); Specimen Source Urine (.); Streptococcus pneumoniae Ag Negative (Negative)
== END 2022-11-27 14:10 | disposition home or self-care (01) ==
LOC: ER 18:00 → 2ND 18:44
PROVIDERS: Nurse Practitioner Family; Admitting Provider Student in an Organized Health Care Education/Training Program; Emergency Provider Emergency Medicine; PCP Physician Assistant; Visit Provider Student in an Organized Health Care Education/Training Program
DX: I48.20 Chronic atrial fibrillation, unspecified (principal); Z79.01 Long term (current) use of anticoagulants; I50.33 Acute on chronic diastolic (congestive) heart failure; N17.9 Acute kidney failure, unspecified; I11.0 Hypertensive heart disease with heart failure; I25.10 Atherosclerotic heart disease of native coronary artery without angina pectoris; Z79.899 Other long term (current) drug therapy; Z79.84 Long term (current) use of oral hypoglycemic drugs; J18.9 Pneumonia, unspecified organism; R19.7 Diarrhea, unspecified; J02.9 Acute pharyngitis, unspecified
CPT/HCPCS: 36415; 71045; 74018; 80048; 80053; 80061; 82962; 83735; 83880; 84100; 84439; 84443; 85025; 87430; 87899; 93005; 93306; 99285; C9803; G0378; J0456; J0696; J2405; U0003; U0005

== ENCOUNTER 2023-01-19 14:09 | Emergency (ER) | payer BC, SELFPAY ==
[2023-01-19] VITALS (8 sets, daily range): BP systolic 180–242; BP diastolic 119–173; PULSE 78–154; RESP 16–17; TEMP 36.6–36.8; O2SAT 95–98; BMI 29.9
--- NOTE | 2023-01-19 14:18 | ECG_ITS ---
APPROVED REPORT Exam: Resting ECG HR:130 bpm ECG Measurements Heart Rate 130 AXES QRSd 93 QRS 5 QT 312 T 51 QTc 389 Conclusion ATRIAL FIBRILLATION WITH RAPID VENTRICULAR RESPONSE ABNORMAL RHYTHM ECG UNCONFIRMED REPORT Electronically signed by : Bobo Britton MD 01/21/2023 09:28:42
--- NOTE | 2023-01-19 14:33 | HMH.EDGENADL ---
Discharge Plan Disposition Patient Disposition: Home, Self-Care Prescriptions Prescriptions: New ondansetron 4 mg tablet,disintegrating 4 mg PO Q6H PRN (Reason: nausea and vomiting) 5 Days Qty: 20 0RF No Action ondansetron HCl 4 mg tablet 4 mg PO BID PRN (Reason: nausea and vomiting) Qty: 20 0RF metoprolol succinate 100 mg tablet extended release 24 hr 100 mg PO DAILY Qty: 90 3RF aspirin 81 mg tablet,delayed release (DR/EC) 81 mg PO DAILY Qty: 90 3RF gabapentin 600 mg tablet 600 mg PO TID Qty: 90 1RF hydrocodone-acetaminophen 7.5-325 mg tablet 1 tab PO BID PRN (Reason: pain) Qty: 60 0RF tizanidine 4 mg tablet See Rx Instructions .ROUTE .COMPLEX Qty: 90 0RF Dose Instruction: TAKE 1 TABLET 3 TIMES EACH DAY FOR PAIN Rx Instructions: TAKE 1 TABLET 3 TIMES EACH DAY FOR PAIN atorvastatin 40 mg tablet 40 mg PO HS sertraline 100 mg tablet 100 mg PO DAILY glipizide 5 mg tablet extended release 24hr 5 mg PO DAILY diazepam [Valium] 2 mg tablet 2 mg PO DAILY Eliquis 5 mg tablet 5 mg PO BID Label Comments: TAKE 1 TABLET 2 TIMES EACH DAY FOR BLOOD THINNER diltiazem HCl 180 mg Capsule,Extended Release 24hr 180 mg PO DAILY 30 Days Qty: 30 3RF Referrals Follow up/Referrals: Roseanne Cedeño PA [Primary Care Provider] - See instructions Activity Restrictions/Add. Instructions Additional Instructions/Restrictions: Your A-fib with RVR dramatically improved with just IV fluid administration and Zofran. Otherwise your emergency work-up was unremarkable. Please continue to take your medications including your metoprolol and your diltiazem and Eliquis at home and stay well-hydrated. Return to the emergency part with any persistent heart rates that are staying over 110 otherwise you may follow-up with your primary care physician. Clinical Impressions Clinical Impression: Atrial fibrillation with RVR, Nausea & vomiting, Acute dehydration Discharge ED Provider: Lulu Valenzuela General Adult HPI General Chief complaint: Arrhythmia/Palpitations Stated complaint: High BP, phys ref Time Seen by Provider: 01/19/23 14:34 History of Present Illness HPI narrative: Patient is a 62-year-old male with a history of atrial fibrillation with RVR anticoagulated on Eliquis presenting today with A-fib RVR and nausea and vomiting. He states that he intermittently has nausea vomiting and this is a normal chronic pain for him however he has been out in the sun a little bit more than normal and when he went today to his primary care doctor's office for medication refill he had no acute complaints other than just feeling a little bit sick to his stomach where he was found to be in A-fib RVR and sent to the emergency department. Patient denies any chest pain or shortness of breath fevers chills or any other symptoms. He has been compliant with his medications which include metoprolol as well as diltiazem. He has been admitted before for A-fib RVR. Related Data Home Medications Medication Instructions Recorded Confirmed atorvastatin 40 mg tablet 40 mg PO HS Cholesterol 11/25/22 01/19/23 diazepam 2 mg tablet (Valium) 2 mg PO DAILY Anxiety 11/25/22 01/19/23 glipizide 5 mg tablet, extended 5 mg PO DAILY Diabetes 11/25/22 01/19/23 release 24 hr sertraline 100 mg tablet 100 mg PO DAILY mood 11/25/22 01/19/23 apixaban 5 mg tablet (Eliquis) 5 mg PO BID Blood thinner, AFib 11/26/22 01/19/23 Previous Rx's Medication Instructions Recorded metoprolol succinate 100 mg 100 mg PO DAILY High blood 03/09/22 tablet,extended release 24 hr pressure #90 tabs aspirin 81 mg tablet,delayed 81 mg PO DAILY heart health #90 04/15/22 release tabs gabapentin 600 mg tablet 600 mg PO TID Pain #90 tabs 11/25/22 hydrocodone 7.5 mg-acetaminophen 1 tab PO BID PRN pain #60 tabs 11/25/22 325 mg tablet diltiazem HCl 180 mg 180 mg PO DAILY 30 days #30 caps 11/27/22 capsule,extend
--- NOTE | 2023-01-19 14:41 | XR_ITS ---
FINAL REPORT CLINICAL HISTORY: dyspnea COMPARISON: November 25, 2022 FINDINGS: No acute pulmonary opacity is present. There is no evidence of effusion or pneumothorax. Mediastinum is unremarkable. Heart size is normal. IMPRESSION: No acute abnormality. Reviewed, Interpreted and Dictated by Clementina Almaguer MD Transcribed by Agustin Garibay Authenticated and [facility]
[2023-01-19 14:51] LABS: Coronavirus 19, PCR Not Detected (NotDetected); Influenza A, PCR Not Detected (NotDetected); Influenza B, PCR Not Detected (NotDetected)
[2023-01-19 14:57] LABS: Chloride 104 mmol/L (98-107); Potassium 3.7 mmoL/L (3.5-5.1); Sodium 143 mmol/L (136-145)
[2023-01-19 15:00] LABS: Alanine Aminotransferase 28 U/L (12-78); Albumin Level 4.6 g/dl (3.5-5.0); Albumin/Globulin Ratio 1.2 (1.1-1.8); Alkaline Phosphatase 131 U/L (38-126); Anion Gap 16.7 mEq/L (5-15); Aspartate Amino Transferase 31 U/L (17-59); Bilirubin,Total 0.8 mg/dl (0.2-1.3); Blood Urea Nitrogen 17 mg/dl (9-20); Calcium 9.6 mg/dl (8.4-10.2); Carbon Dioxide 26 mmol/L (22.0-30.0); Estimated Glomerular Filt Rate 38 ml/min (>60); GFR (African American) 46 ML/MIN (>60); Globulin 3.8 g/dL (1.3-3.2); Glucose 185 mg/dl (74-100); Total Protein,Serum 8.4 g/dl (6.3-8.2)
[2023-01-19 15:01] LABS: Basophils % 0.6 % (0.1-2.0); Eosinophils # 0.2 K/mm3 (0.0-0.4); Eosinophils % 2.2 % (0.1-12.0); Lymphocytes # 0.7 K/mm3 (0.7-4.5); Lymphocytes % 8.8 % (10-50); Magnesium 1.7 mg/dl (1.6-2.3); Mean Corpuscular HGB Conc 33.8 g/dL (31.8-35.4); Mean Corpuscular Hemoglobin 32.2 pg (27.0-31.2); Mean Corpuscular Volume 95.3 fl (80-94); Mean Platelet Volume 8.1 fl (7.4-10.4); Monocytes # 0.4 K/mm3 (0.1-1.0); Monocytes % 4.8 % (1.7-9.3); Neutrophils # 6.7 K/mm3 (1.8-7.8); Neutrophils % 83.6 % (37.0-80.0); Platelet Count 214 K/mm3 (142-424); Red Cell Distribution Width 13.8 % (11.5-17.5)
[2023-01-19 15:03] LABS: Activated Partial Thrombo Time 27.8 seconds (22.8-30.6); Prothrombin Time 10.8 seconds (10.1-12.5)
[2023-01-19 15:31] LABS: Hematocrit 55.3 % (42.0-52.0); Hemoglobin 18.7 g/dL (14.1-18.0); Thyroid Stimulating Hormone 0.78 uIU/mL (0.465-4.68)
--- NOTE | 2023-01-19 15:57 | PC.NURSE ---
PT STATED HE NEEDS NOTHING AT THIS TIME
--- NOTE | 2023-01-19 16:01 | PC.NURSE ---
MD aware of pt hypertension at this time. no new orders at this time
--- NOTE | 2023-01-19 17:20 | PC.NURSE ---
er md aware of blood pressure and heartrate. no new orders.
--- NOTE | 2023-01-19 17:31 | PC.NURSE ---
MD aware of pt HTN at discharge. stated pt has chronic hypertension and does not need intervention for it at this time. no new orders.
== END 2023-01-19 17:24 | disposition home or self-care (01) ==
PROVIDERS: Emergency Provider Student in an Organized Health Care Education/Training Program; PCP Physician Assistant
DX: I48.91 Unspecified atrial fibrillation (principal); E86.0 Dehydration; R11.2 Nausea with vomiting, unspecified; I10 Essential (primary) hypertension; I25.10 Atherosclerotic heart disease of native coronary artery without angina pectoris; E78.5 Hyperlipidemia, unspecified
CPT/HCPCS: 71045; 80053; 83735; 84443; 85025; 85610; 85730; 87636; 93005; 96360; 96361; 99285; C9803; J2405; J3475; U0003; U0005

== ENCOUNTER → 2023-03-17 13:30 | Outpatient (CLI) | payer BC, SELFPAY ==
[2023-03-17 18:18] LABS: Basophils # 0.1 K/mm3 (0-0.2); Basophils % 0.6 % (0.1-2.0); Eosinophils # 0.2 K/mm3 (0.0-0.4); Eosinophils % 2.8 % (0.1-12.0); Hematocrit 51.6 % (42.0-52.0); Hemoglobin 16.3 g/dL (14.1-18.0); Lymphocytes # 1.2 K/mm3 (0.7-4.5); Lymphocytes % 16.2 % (10-50); Mean Corpuscular HGB Conc 31.6 g/dL (31.8-35.4); Mean Corpuscular Hemoglobin 31.3 pg (27.0-31.2); Monocytes # 0.4 K/mm3 (0.1-1.0); Monocytes % 5.4 % (1.7-9.3); Neutrophils # 5.6 K/mm3 (1.8-7.8); Platelet Count 297 K/mm3 (142-424); Red Blood Count 5.21 M/mm3 (4.60-6.20); Red Cell Distribution Width 13.9 % (11.5-17.5); White Blood Count 7.4 K/mm3 (4.8-10.8)
[2023-03-17 18:25] LABS: Alanine Aminotransferase 40 U/L (12-78); Albumin Level 4.5 g/dl (3.5-5.0); Albumin/Globulin Ratio 1.5 (1.1-1.8); Alkaline Phosphatase 99 U/L (38-126); Aspartate Amino Transferase 32 U/L (17-59); Bilirubin,Total 0.7 mg/dl (0.2-1.3); Blood Urea Nitrogen 20 mg/dl (9-20); Calcium 9.2 mg/dl (8.4-10.2); Carbon Dioxide 27 mmol/L (22.0-30.0); Chloride 108 mmol/L (98-107); Chol/HDL Ratio 4.6 (1-3.5); Cholesterol 171 mg/dl (140-200); Estimated Glomerular Filt Rate 41 ml/min (>60); GFR (African American) 50 ML/MIN (>60); Globulin 3.1 g/dL (1.3-3.2); Glucose 130 mg/dl (74-100); HDL Cholesterol 37 mg/dl (40-60); Sodium 145 mmol/L (136-145); Total Protein,Serum 7.6 g/dl (6.3-8.2); Triglycerides 229 mg/dl (30-150); VLDL Cholesterol 46 mg/dL (0-40)
[2023-03-17 18:35] LABS: Direct LDL Cholesterol 90.71 mg/dL (100-129)
[2023-03-17 18:42] LABS: 25-OH Vitamin D, Total 17.3 ng/mL (30-100)
[2023-03-17 18:53] LABS: Thyroid Stimulating Hormone 0.76 uIU/mL (0.465-4.68)
[2023-03-17 18:57] LABS: Creatinine,Urine Random 166 mg/dL (Not Estab.); Microalbumin/Creatinine Ratio 37.1
[2023-03-17 22:28] LABS: Hemoglobin A1C 6.2 % (4.0-6.0)
== END ==
PROVIDERS: PCP Physician Assistant; Visit Provider Physician Assistant
DX: I10 Essential (primary) hypertension (principal); E55.9 Vitamin D deficiency, unspecified; G89.29 Other chronic pain; I48.91 Unspecified atrial fibrillation; Z79.899 Other long term (current) drug therapy
CPT/HCPCS: 80053; 80061; 82043; 82306; 82570; 83036; 84443; 85025

== ENCOUNTER 2023-09-02 20:05 | Outpatient (CLI) | payer BC, SELFPAY ==
[2023-09-02 18:57] LABS: Basophils % 0.5 % (0.1-2.0); Eosinophils # 0.4 K/mm3 (0.0-0.4); Hematocrit 52.9 % (42.0-52.0); Hemoglobin 17.8 g/dL (14.1-18.0); Lymphocytes # 1.7 K/mm3 (0.7-4.5); Lymphocytes % 20.4 % (10-50); Mean Corpuscular HGB Conc 33.6 g/dL (31.8-35.4); Mean Corpuscular Hemoglobin 34.1 pg (27.0-31.2); Mean Corpuscular Volume 101.4 fl (80-94); Monocytes # 0.7 K/mm3 (0.1-1.0); Monocytes % 7.8 % (1.7-9.3); Neutrophils # 5.6 K/mm3 (1.8-7.8); Neutrophils % 66.4 % (37.0-80.0); Platelet Count 260 K/mm3 (142-424); Red Blood Count 5.21 M/mm3 (4.60-6.20); Red Cell Distribution Width 14.3 % (11.5-17.5); White Blood Count 8.4 K/mm3 (4.8-10.8)
[2023-09-02 19:27] LABS: Direct LDL Cholesterol 106.88 mg/dL (100-129); Hemoglobin A1C 6.2 % (4.0-6.0)
[2023-09-02 19:42] LABS: Chloride 107 mmol/L (98-107); Potassium 4.3 mmoL/L (3.5-5.1); Sodium 141 mmol/L (136-145)
[2023-09-02 19:45] LABS: Alanine Aminotransferase 29 U/L (12-78); Albumin Level 4.3 g/dl (3.5-5.0); Albumin/Globulin Ratio 1.2 (1.1-1.8); Alkaline Phosphatase 93 U/L (38-126); Anion Gap 16.3 mEq/L (5-15); Aspartate Amino Transferase 37 U/L (17-59); Bilirubin,Total 0.6 mg/dl (0.2-1.3); Blood Urea Nitrogen 14 mg/dl (9-20); Calcium 9.4 mg/dl (8.4-10.2); Carbon Dioxide 22 mmol/L (22.0-30.0); Cholesterol 197 mg/dl (140-200); Estimated Glomerular Filt Rate 61 ml/min (>60); GFR (African American) 74 ML/MIN (>60); Globulin 3.5 g/dL (1.3-3.2); Glucose 86 mg/dl (74-100); Total Protein,Serum 7.8 g/dl (6.3-8.2); Triglycerides 292 mg/dl (30-150); VLDL Cholesterol 58 mg/dL (0-40)
[2023-09-02 19:46] LABS: Chol/HDL Ratio 5.3 (1-3.5); HDL Cholesterol 37 mg/dl (40-60)
[2023-09-02 19:48] LABS: 25-OH Vitamin D, Total 30.7 ng/mL (30-100)
[2023-09-02 20:17] LABS: Prostate Specific Ag Screen 2.2 ng/ml (0.0-4.0); Thyroid Stimulating Hormone 0.95 uIU/mL (0.465-4.68)
== END 2023-09-02 23:59 ==
LOC: LAB.DROPOF 20:06
PROVIDERS: PCP Physician Assistant; Visit Provider Physician Assistant
DX: I10 Essential (primary) hypertension (principal); E66.9 Obesity, unspecified; Z68.32 Body mass index [BMI] 32.0-32.9, adult; Z79.899 Other long term (current) drug therapy; Z12.5 Encounter for screening for malignant neoplasm of prostate
CPT/HCPCS: 80053; 80061; 82306; 83036; 84443; 85025; G0103

== ENCOUNTER 2024-01-03 13:40 | Emergency (ER) | payer BC, SELFPAY ==
[2024-01-03] VITALS (7 sets, daily range): BP systolic 91–118; BP diastolic 62–79; PULSE 73–85; RESP 13–19; TEMP 36.5–36.7; O2SAT 94–99; BMI 30.5
--- NOTE | 2024-01-03 13:55 | PC.NURSE ---
called Silvina Irene to have this pts records sent over
--- NOTE | 2024-01-03 14:12 | ED_ITS ---
<Statement entered by Lulu Valenzuela MD - 01/05/24 14:58> I was consulted by the BRIAN, and we discussed the complexity of the problems being addressed. I approved the treatment and management plan for this patient's care in the emergency department, thus performing a substantive portion of the medical decision making. Lulu Valenzuela MD, ANGIE, FACEP Discharge Plan Disposition Patient Disposition: Home, Self-Care Condition: Good Chief Complaint: Fall Prescriptions Prescriptions: No Action diazepam 2 mg tablet 2 mg PO DAILY PRN (Reason: anxiety) Qty: 30 0RF hydrocodone-acetaminophen 7.5-325 mg tablet 1 tab PO BID 30 Days Qty: 60 0RF ondansetron HCl 4 mg tablet 4 mg PO BID PRN (Reason: nausea and vomiting) Qty: 20 0RF ketorolac 60 mg/2 mL solution 60 mg IM ONCE Qty: 2 0RF amlodipine 5 mg tablet 5 mg PO DAILY 90 Days Qty: 90 0RF diltiazem HCl 180 mg capsule,extended release 24hr 180 mg PO DAILY Qty: 90 3RF glipizide 5 mg tablet extended release 24hr 5 mg PO DAILY Qty: 90 3RF ergocalciferol (vitamin D2) 1,250 mcg (50,000 unit) capsule 1,250 mcg PO WEEKLY Qty: 14 1RF cholecalciferol (vitamin D3) 50 mcg (2,000 unit) capsule 50 mcg PO DAILY Qty: 90 3RF atorvastatin 40 mg tablet 40 mg PO HS Qty: 90 3RF aspirin 81 mg tablet,delayed release (DR/EC) 81 mg PO DAILY Qty: 90 3RF Eliquis 5 mg tablet 5 mg PO BID Qty: 180 3RF clonidine HCl 0.1 mg tablet See Rx Instructions .ROUTE .COMPLEX Qty: 90 1RF Dose Instruction: TAKE 1 TABLET EVERY 8 HOURS NEEDED FOR HIGH BLOOD PRESSURE EMERGENCY Rx Instructions: TAKE 1 TABLET EVERY 8 HOURS NEEDED FOR HIGH BLOOD PRESSURE EMERGENCY sertraline 100 mg tablet 100 mg PO DAILY Qty: 90 3RF metoprolol succinate 200 mg tablet extended release 24 hr 200 mg PO DAILY Qty: 90 0RF gabapentin 600 mg tablet 600 mg PO TID Qty: 90 1RF hydrocodone-acetaminophen 7.5-325 mg tablet 1 tab PO BID PRN (Reason: pain) 30 Days Qty: 60 0RF tizanidine 4 mg tablet See Rx Instructions .ROUTE .COMPLEX Qty: 90 2RF Dose Instruction: TAKE 1 TABLET 3 TIMES EACH DAY FOR PAIN Rx Instructions: TAKE 1 TABLET 3 TIMES EACH DAY FOR PAIN Farxiga 10 mg tablet See Rx Instructions .ROUTE .COMPLEX Qty: 90 2RF Dose Instruction: TAKE 1 TABLET 1 TIME EACH DAY Rx Instructions: TAKE 1 TABLET 1 TIME EACH DAY Referrals Follow up/Referrals: Roseanne Cedeño PA [Primary Care Provider] - See instructions Activity Restrictions/Add. Instructions Additional Instructions/Restrictions: Please call make an appointment with your PCP and or get a referral to neurology for further evaluation of your polyneuropathy. Return to ER as needed for any worsening signs or symptoms including change in level of consciousness loss of bowel or bladder function etc. Clinical Impressions Clinical Impression: Polyneuropathy Discharge ED Provider: Toby Fernandez General Adult HPI General Chief complaint: Fall Stated complaint: cant walk, tingling in hands, weak, headache Time Seen by Provider: 01/03/24 14:04 History of Present Illness HPI narrative: Patient presents for 3 days of paresthesias. Patient reports that he has begun having numbness and tingling to his bilateral feet and right upper extremity. Patient also reports that he has fallen several times due to the numbness and pain of walking. Patient has a complex medica history including a l history of previous CVA maintained on chronic anticoagulation, COPD, type 2 diabetes mellitus, chronic kidney disease etc. patient denies any chest pain shortness of breath fever chills hemoptysis hematochezia melena nausea vomiting diarrhea. Patient went to [facility] and was evaluated in the emergency department last night. A stroke alert was called however his imaging did not show any evidence of stroke or large vessel occlusion. His his labs were nonactionable. He was subsequently discharged home. Patient presents today with ongoing symptoms. Related Data Previous Rx's Medication Instructions Recorded ondansetron HCl 4 mg tablet 4 mg PO BID PRN nausea and 01/19/23 vomiting #20 tabs cholecalciferol (vitamin D3) 50 50 mcg PO DAILY #90 caps 03/19/23 mcg (2,000 unit) capsule ergocalciferol (vitamin D2) 1,250 1,250 mcg PO WEEKLY #14 caps 03/19/23 mcg (50,000 unit) capsule apixaban 5 mg tablet (Eliquis) 5 mg PO BID Blood thinner, AFib 04/29/23 #180 tabs aspirin 81 mg tablet,delayed 81 mg PO DAILY heart health #90 04/29/23 release tabs atorvastatin 40 mg tablet 40 mg PO HS Cholesterol #90 tabs 04/29/23 diazepam 2 mg tablet 2 mg PO DAILY PRN anxiety #30 tabs 05/12/23 clonidine HCl 0.1 mg tablet See Rx Instructions .Route 07/05/23 .COMPLEX #90 tabs sertraline 100 mg tablet 100 mg PO DAILY mood #90 tabs 08/25/23 amlodipine 5 mg tablet 5 mg PO DAILY 90 days #90 tabs 09/02/23 diltiazem HCl 180 mg 180 mg PO DAILY #90 caps 09/02/23 capsule,extended release 24 hr glipizide 5 mg tablet, extended 5 mg PO DAILY Diabetes #90 tabs 09/02/23 release 24 hr metoprolol succinate 200 mg 200 mg PO DAILY #90 tabs 10/20/23 tablet,extended release 24 hr hydrocodone 7.5 mg-acetaminophen 1 tab PO BID pain 30 days #60 tabs 11/04/23 325 mg tablet gabapentin 600 mg tablet 600 mg PO TID Pain #90 tabs 11/19/23 hydrocodone 7.5 mg-acetaminophen 1 tab PO BID PRN pain 30 days #60 11/19/23 325 mg tablet tabs tizanidine 4 mg tablet See Rx Instructions .Route 11/19/23 .COMPLEX #90 tabs dapagliflozin propanediol 10 mg See Rx Instructions .Route 12/15/23 tablet (Farxiga) .COMPLEX #90 tabs Allergies Allergy/AdvReac Type Severity Reaction Status Date / Time prednisone Allergy Severe Anaphylaxis Verified 11/02/23 13:14 rivaroxaban [From Xarelto] Allergy Rash Verified 11/02/23 13:14 lisinopril AdvReac Severe acute Verified 11/02/23 13:14 renal failure [facility] Disclaimer: The information contained in this section may have been updated after the patient was seen, as this information can be updated by other users. Medical History Microalbuminuria Stage 3b chronic kidney disease (CKD) JOHN (acute kidney injury) Atrial fibrillation with RVR History of acute renal failure Anxiety TIA (transient ischemic attack) Stroke CAD (coronary artery disease) HLD (hyperlipidemia) Nonsustained ventricular tachycardia Hypertensive urgency Dizziness JOHN (acute kidney injury) Acute renal failure Pancreatic cyst 1. There are 2 cystic lesions of the pancreas 1 in the tail and 1 in the head measuring 1.7 and 2 cm respectively. Differential diagnosis includes pancreatic cyst, pancreatic pseudocyst, or pancreatic cystic neoplasm. MRI without and with contrast enhancement and with MRCP may provide further evaluation for characterization. 2. Nonobstructing right nephrolithiasis. 3. Otherwise negative Pancreatic cyst Fatty liver Gastritis Lumbar degenerative disc disease Sinusitis Hypertension Family History Other Family history of diabetes mellitus type II Family history of hyperlipidemia Family history of hypertension Social History Smoking Status: Never smoker alcohol intake: never substance use type: denies use current occupational status: disabled Travel in the last 8 weeks: None household members: significant other housing: house current occupation: [employer] current occupational exposures/hazards: No caffeine: Yes ROS Obtained: Yes Systems reviewed as appropriate & no additional complaints except as documented Physical Exam General General appearance: alert and in no apparent distress Head Head exam: atraumatic and normal inspection Eye Eye exam: Present normal appearance, PERRL and EOMI ENT ENT exam: Present normal exam, normal oropharynx and mucous membranes moist Neck Neck exam: Present normal inspection, full ROM, trachea midline and lymphadenopathy Chest Chest inspection: Present normal inspection and symmetric chest wall rise Respiratory Respiratory exam: Present normal lung sounds bilaterally; Absent respiratory distress Cardiovascular Cardiovascular exam: Present irregular rhythm (With controlled rate), normal heart sounds, +S1 and +S2 Abdominal Exam Abdominal exam: Present soft and normal bowel sounds; Absent tenderness, guarding, rebound or rigidity Extremities Exam Extremities exam: Present normal inspection, full ROM and other (Patient has abnormal sensation and abnormal to point discrimination in the bilateral lower extremities distally but has normal motor and is vascularly intact. Patient has abnormal sensation in the left upper extremity from the elbow down with altered 2 point discrimination but has motor and vascula); Absent tenderness Back Exam Back exam: Present normal inspection, full ROM and tenderness (Lumbar tenderness to palpation in the midline) Neurological Exam Neurological exam: Present alert, oriented X3, CN II-XII intact and motor sensory deficit (As mentioned above in the musculoskeletal exam patient has altered sensation in the bilateral lower extremities and left upper extremities in a stocking glove fashion) Psychiatric Psychiatric exam: Present normal affect and normal mood Skin Skin exam: Present warm, dry and normal color Medical Decision Making Medical Records Medical records reviewed: Yes I reviewed the patient's medical records. Alejandro Inquiry Pt receiving controlled substance: No Vital Signs: 01/03/24 13:40 01/03/24 14:00 01/03/24 14:32 Temperature 97.7 F Temperature Source Oral Pulse Rate 79 78 Pulse Rate [Right] 79 Respiratory Rate 19 Blood Pressure 108/71 L 95/63 L Blood Pressure [Right Arm] 110/62 Blood Pressure Mean [Right Arm] 78 Blood Pressure Source [Right Arm] Automatic Cuff 02 Sat by Pulse Oximetry 99 97 97 Oxygen Delivery Method Room Air Room Air Room Air 01/03/24 15:00 01/03/24 15:30 Temperature Temperature Source Pulse Rate 85 82 Pulse Rate [Right] Respiratory Rate Blood Pressure 91/65 L 112/75 Blood Pressure [Right Arm] Blood Pressure Mean [Right Arm] Blood Pressure Source [Right Arm] 02 Sat by Pulse Oximetry 95 94 L Oxygen Delivery Method Room Air Room Air Lab Data Lab results reviewed: Yes I reviewed the patient's lab results. Lab Results 01/03/24 13:49: WBC 8.7, RBC 4.69, Hgb 16.0, Hct 47.2, MCV 100.6 H, MCH 34.2 H, MCHC 34.0, RDW 14.4, Plt Count 205, MPV 9.5, Neut % (Auto) 75.2, Lymph % (Auto) 14.4, [place] % (Auto) 4.4, Eos % (Auto) 5.4, Baso % (Auto) 0.6, Neut # (Auto) 6.5, Lymph # (Auto) 1.2, [place] # (Auto) 0.4, Eos # (Auto) 0.5 H, Baso # (Auto) 0.1, S odium 135 L, Potassium 3.6, Chloride 99, Carbon Dioxide 28, Anion Gap 11.6, BUN 13, Creatinine 1.30 H, Estimated Creat Clear 83, Estimated GFR 56 L, Est GFR ( Amer) 67, Glucose 201 H, Calcium 8.5, Magnesium 1.8, Total Bilirubin 0.5, AST 37, ALT 27, Alkaline Phosphatase 74, Total Creatine Kinase 259 H, C- Reactive Protein 80.7 H, Total Protein 7.0, Albumin 3.6, Globulin 3.4 H, Albumin/Globulin Ratio 1.1, TSH 0.85, Acetone Level None detected 01/03/24 14:55: Lactate 2.2 H 01/03/24 15:25: Urine Color Yellow, Urine Appearance Clear, Urine pH 6.5, Ur Specific Raymond 1.010, Urine Protein Trace, Urine Glucose (UA) 3+, Urine Ketones Negative, Urine Blood Negative, Urine Nitrate Negative, Urine Bilirubin Negative, Urine Urobilinogen 2.0, Ur Leukocyte Esterase Negative 01/03/24 13:49 01/03/24 13:49 Orders (Tests/Meds): ED MEDICATIONS Discontinued Medications Generic Name Dose Route Start Last Admin Trade Name Freq PRN Reason Stop Dose Admin Acetaminophen 1,000 mg 01/03/24 14:15 01/03/24 15:32 Acetaminophen 1,000mg/100ml Vial IV 01/03/24 14:16 1,000 mg ONCE ONE Administration Dexamethasone Sodium Phosphate 10 mg 01/03/24 14:15 01/03/24 15:31 Dexamethasone 4mg/Ml 5ml Mdv IV 01/03/24 14:16 10 mg ONCE ONE Administration Lactated Ringer's 1,000 mls @ 999 mls/hr 01/03/24 14:15 01/03/24 15:26 Lactated Ringer's 1000 Ml Bag IV 01/03/24 15:15 999 mls/hr .Q1H1M ONE Administration Ketorolac Tromethamine 15 mg 01/03/24 14:15 01/03/24 15:31 Ketorolac 30mg/Ml Vial IV 01/03/24 14:16 15 mg ONCE ONE Administration ORDERS Category Date Time Status Acetone, Serum (Rapid) Stat Lab 01/03/24 13:49 Completed CBC w/Auto Diff [Complete Blood Count Auto Diff] Stat Lab 01/03/24 13:49 Completed CK [Creatine Kinase] Stat Lab 01/03/24 13:49 Completed CMP [Comprehensive Metabolic Panel] Stat Lab 01/03/24 13:49 Completed CRP [C-Reactive Protein] Stat Lab 01/03/24 13:49 Completed ESR [Erythrocyte Sedimentation Rate] Stat Lab 01/03/24 Received Hemoglobin A1C Stat Lab 01/03/24 Received Lactic Acid Stat Lab 01/03/24 14:55 Completed Magnesium Stat Lab 01/03/24 13:49 Completed TSH [Thyroid Stimulating Hormone] Stat Lab 01/03/24 13:49 Completed UA [Urinalysis and Microscopic] Stat Lab 01/03/24 15:25 Results UDS [Drug Screen,Urine] Stat Lab 01/03/24 15:25 Received Medical Decision Narrative: In summary patient is a 63-year-old male who presents to the emergency department for evaluation of paresthesias. Patient is hemodynamically stable upon arrival, afebrile. Physical exam is remarkable for stocking glove paresthesia/neuropathy without any focal neurologic deficits with a Glascow coma score 15. Differential diagnosis includes diabetic polyneuropathy, electrolyte imbalance, cord impingement although less likely etc. Initial workup will be conducted with hematologic labs. Initial interventions include Toradol Decadron Tylenol Robaxin. Initial workup reviewed by me shows a elevated blood sugar less than 300, chronic kidney disease but no evidence of need for renal replacement therapy remainder of his hematologic labs are nonactionable. Upon repeat evaluation I had an interactive discussion with the patient regarding his workup and possible diagnosis of diabetic polyneuropathy.. Given this patient is appropriate for discharge with referral back to his PCP and also referral from his PCP to neurology for evaluation of his neuropathies. Critical Care Critical Care Time Critical Care Time: No
[2024-01-03 14:26] LABS: Basophils # 0.1 K/mm3 (0-0.2); Basophils % 0.6 % (0.1-2.0); Eosinophils # 0.5 K/mm3 (0.0-0.4); Eosinophils % 5.4 % (0.1-12.0); Hematocrit 47.2 % (42.0-52.0); Lymphocytes # 1.2 K/mm3 (0.7-4.5); Lymphocytes % 14.4 % (10-50); Mean Corpuscular Hemoglobin 34.2 pg (27.0-31.2); Mean Corpuscular Volume 100.6 fl (80-94); Mean Platelet Volume 9.5 fl (7.4-10.4); Monocytes # 0.4 K/mm3 (0.1-1.0); Monocytes % 4.4 % (1.7-9.3); Neutrophils # 6.5 K/mm3 (1.8-7.8); Neutrophils % 75.2 % (37.0-80.0); Platelet Count 205 K/mm3 (142-424); Red Blood Count 4.69 M/mm3 (4.60-6.20); Red Cell Distribution Width 14.4 % (11.5-17.5); White Blood Count 8.7 K/mm3 (4.8-10.8)
[2024-01-03 14:33] LABS: Alanine Aminotransferase 27 U/L (12-78); Albumin Level 3.6 g/dl (3.5-5.0); Albumin/Globulin Ratio 1.1 (1.1-1.8); Alkaline Phosphatase 74 U/L (38-126); Anion Gap 11.6 mEq/L (5-15); Aspartate Amino Transferase 37 U/L (17-59); Bilirubin,Total 0.5 mg/dl (0.2-1.3); Blood Urea Nitrogen 13 mg/dl (9-20); Calcium 8.5 mg/dl (8.4-10.2); Carbon Dioxide 28 mmol/L (22.0-30.0); Chloride 99 mmol/L (98-107); Creatine Kinase 259 U/L (55-170); Creatinine Clearance Estimated 83 mL/min (50-200); Estimated Glomerular Filt Rate 56 ml/min (>60); GFR (African American) 67 ML/MIN (>60); Globulin 3.4 g/dL (1.3-3.2); Glucose 201 mg/dl (74-100); Magnesium 1.8 mg/dl (1.6-2.3); Potassium 3.6 mmoL/L (3.5-5.1); Sodium 135 mmol/L (136-145)
[2024-01-03 14:38] LABS: C-Reactive Protein 80.7 mg/L (0-4)
--- NOTE | 2024-01-03 14:46 | ECG_ITS ---
APPROVED REPORT Exam: Resting ECG HR:87 bpm ECG Measurements Heart Rate 87 AXES QRSd 88 QRS -1 QT 400 T 27 QTc 445 Conclusion ATRIAL FIBRILLATION ABNORMAL RHYTHM ECG Electronically signed by : KAYLAN OCAMPO, 01/03/2024 17:05:20
[2024-01-03 15:06] LABS: Thyroid Stimulating Hormone 0.85 uIU/mL (0.465-4.68)
[2024-01-03 15:18] LABS: Acetone, Serum (Rapid) None Detected (None Detect)
[2024-01-03] MEDS: LACTATED RINGERS 1000ML 1,000 ML 999 ML IV (15:26)
[2024-01-03 15:31] LABS: Microscopic, Urine URINE MICROSCOPIC (MICROSCOPIC)
[2024-01-03] MEDS: DEXAMETHASONE 4MG/ML 5ML MDV 10 MG IV (15:31)
[2024-01-03] MEDS: KETOROLAC 30MG/ML VIAL 15 MG IV (15:31)
[2024-01-03] MEDS: ACETAMINOPHEN 1,000MG/100ML VIAL 1000 MG IV (15:32)
[2024-01-03 15:37] LABS: Appearance,Urine CLEAR (Clear); Bilirubin,Urine Negative (Negative); Blood, Urine Negative (Negative); Color,Urine YELLOW (Yellow); Glucose,Urine (UA) 3+ (Negative); Ketones,Urine Negative (Negative); Leukocyte Esterase,Urine Negative (Negative); Nitrate,Urine Negative (Negative); PH,Urine 6.5 (5.0-8.5); Protein,Urine TRACE (Negative)
[2024-01-03 15:39] LABS: Lactic Acid 2.2 mmol/L (0.7-2.1)
[2024-01-03 15:50] LABS: Amphetamine/Metha Screen,Urine Negative ng/ml (<1000)
[2024-01-03 15:51] LABS: Barbiturates Screen,Urine Positive ng/ml (<200); Benzodiazepines Screen,Urine Negative ng/ml (<200)
[2024-01-03 15:52] LABS: Cannabinoid Screen,Urine Negative ng/ml (<50); Cocaine Screen,Urine Negative ng/ml (<300)
[2024-01-03 15:53] LABS: Methadone Screen,Urine Negative ng/ml (<300)
[2024-01-03 15:54] LABS: Opiate Screen,Urine Positive ng/ml (<300); Phencyclidine Screen,Urine Negative ng/ml (<25)
[2024-01-03 15:58] LABS: Bacteria,Urine Trace /lpf; Squamous Epithelial Cell,Urine Occasional #/hpf (0-5)
[2024-01-03 15:59] LABS: Calcium Oxalate Crystals,Urine Trace /lpf
[2024-01-03 16:18] LABS: Erythrocyte Sedimentation Rate 44 mm/hr (0-20)
[2024-01-03 16:39] LABS: Hemoglobin A1C 6.3 % (4.0-6.0)
[2024-01-03 18:59] LABS: Reflex Lactic Add Lactic Reflex
== END 2024-01-03 16:09 | disposition home or self-care (01) ==
PROVIDERS: Physician Assistant; Emergency Provider Emergency Medicine; PCP Physician Assistant
DX: R20.2 Paresthesia of skin (principal); E11.65 Type 2 diabetes mellitus with hyperglycemia; R79.89 Other specified abnormal findings of blood chemistry; N18.32 Chronic kidney disease, stage 3b; E11.22 Type 2 diabetes mellitus with diabetic chronic kidney disease; J44.9 Chronic obstructive pulmonary disease, unspecified; I11.9 Hypertensive heart disease without heart failure; I25.10 Atherosclerotic heart disease of native coronary artery without angina pectoris; E78.5 Hyperlipidemia, unspecified; I48.91 Unspecified atrial fibrillation; Z79.01 Long term (current) use of anticoagulants; Z86.73 Personal history of transient ischemic attack (TIA), and cerebral infarction without residual deficits; Z79.84 Long term (current) use of oral hypoglycemic drugs
CPT/HCPCS: 80053; 80307; 81001; 82009; 82550; 83036; 83605; 83735; 84443; 85025; 85651; 86140; 93005; 96361; 96374; 96375; 99284; J0131

== ENCOUNTER 2024-07-24 15:08 | Outpatient (CLI) | payer BC, SELFPAY ==
[2024-07-24 13:07] LABS: Basophils # 0.1 K/mm3 (0-0.2); Basophils % 0.7 % (0.1-2.0); Eosinophils # 0.2 K/mm3 (0.0-0.4); Eosinophils % 2.3 % (0.1-12.0); Hematocrit 53.7 % (42.0-52.0); Hemoglobin 17.8 g/dL (14.1-18.0); Lymphocytes % 13.5 % (10-50); Mean Corpuscular HGB Conc 33.1 g/dL (31.8-35.4); Mean Corpuscular Hemoglobin 33.3 pg (27.0-31.2); Mean Corpuscular Volume 100.6 fl (80-94); Mean Platelet Volume 9.3 fl (7.4-10.4); Monocytes # 0.4 K/mm3 (0.1-1.0); Monocytes % 5.6 % (1.7-9.3); Neutrophils # 5.8 K/mm3 (1.8-7.8); Platelet Count 187 K/mm3 (142-424); Red Blood Count 5.34 M/mm3 (4.60-6.20); Red Cell Distribution Width 13.5 % (11.5-17.5); White Blood Count 7.4 K/mm3 (4.8-10.8)
[2024-07-24 13:42] LABS: Creatinine,Urine Random 207 mg/dL (Not Estab.)
[2024-07-24 13:45] LABS: Microalbumin/Creatinine Ratio 9.7
[2024-07-24 13:51] LABS: Albumin Level 4.6 g/dl (3.5-5.0); Chloride 105 mmol/L (98-107); Sodium 143 mmol/L (136-145)
[2024-07-24 13:53] LABS: Alanine Aminotransferase 34 U/L (12-78); Aspartate Amino Transferase 35 U/L (17-59); Blood Urea Nitrogen 11 mg/dl (9-20); Carbon Dioxide 29 mmol/L (22.0-30.0); Estimated Glomerular Filt Rate 61 ml/min (>60); GFR (African American) 74 ML/MIN (>60)
[2024-07-24 13:54] LABS: Albumin/Globulin Ratio 1.6 (1.1-1.8); Alkaline Phosphatase 82 U/L (38-126); Bilirubin,Total 0.7 mg/dl (0.2-1.3); Calcium 9.3 mg/dl (8.4-10.2); Cholesterol 158 mg/dl (140-200); Globulin 2.9 g/dL (1.3-3.2); Glucose 93 mg/dl (74-100); HDL Cholesterol 40 mg/dl (40-60); Total Protein,Serum 7.5 g/dl (6.3-8.2); Triglycerides 144 mg/dl (30-150); VLDL Cholesterol 29 mg/dL (0-40)
[2024-07-24 14:05] LABS: Direct LDL Cholesterol 90.39 mg/dL (100-129)
== END 2024-07-24 23:59 | disposition home or self-care (01) ==
LOC: LAB.DROPOF 15:08
PROVIDERS: PCP Internal Medicine; Visit Provider Internal Medicine
DX: I50.32 Chronic diastolic (congestive) heart failure (principal); I10 Essential (primary) hypertension; E11.59 Type 2 diabetes mellitus with other circulatory complications; E78.2 Mixed hyperlipidemia; Z79.84 Long term (current) use of oral hypoglycemic drugs
CPT/HCPCS: 80053; 80061; 82043; 82570; 85025

== ENCOUNTER 2024-12-18 13:20 | Outpatient (CLI) | payer OTHER, MEDICARE, SELFPAY ==
[2024-12-18 17:21] LABS: Basophils # 0.1 K/mm3 (0-0.2); Basophils % 1.2 % (0.1-2.0); Eosinophils # 0.2 Kmm3 (0.0-0.4); Eosinophils % 3.3 % (0.1-12.0); Hematocrit 47.3 % (42.0-52.0); Hemoglobin 16.2 g/dL (14.1-18.0); Lymphocytes # 1.1 K/mm3 (0.7-4.5); Lymphocytes % 18.9 % (10-50); Mean Corpuscular HGB Conc 34.2 g/dL (31.8-35.4); Mean Corpuscular Hemoglobin 32.7 pg (27.0-31.2); Mean Corpuscular Volume 95.4 fl (80-94); Mean Platelet Volume 11.3 fl (7.4-10.4); Monocytes # 0.4 K/mm3 (0.1-1.0); Monocytes % 7.1 % (1.7-9.3); Neutrophils # 4.2 K/mm3 (1.8-7.8); Neutrophils % 69.3 % (37.0-80.0); Nucleated Red Blood Cells # 0 10^3/uL; Nucleated Red Blood Cells % 0 %; Platelet Count 246 K/mm3 (142-424); Red Blood Count 4.96 M/mm3 (4.60-6.20); Red Cell Distribution Width 12.6 % (11.5-17.5); Red Cell Distribution Width-SD 43.1 fL
[2024-12-18 17:36] LABS: Alanine Aminotransferase 40 U/L (12-78); Albumin Level 4.5 g/dl (3.5-5.0); Albumin/Globulin Ratio 1.6 (1.1-1.8); Alkaline Phosphatase 78 U/L (38-126); Anion Gap 13.3 mEq/L (5-15); Aspartate Amino Transferase 35 U/L (17-59); Bilirubin,Total 0.6 mg/dl (0.2-1.3); Blood Urea Nitrogen 21 mg/dl (9-20); Calcium 9.6 mg/dl (8.4-10.2); Carbon Dioxide 23 mmol/L (22.0-30.0); Chloride 110 mmol/L (98-107); Chol/HDL Ratio 4.5 (1-3.5); Cholesterol 170 mg/dl (140-200); Estimated Glomerular Filt Rate 61 ml/min (>60); GFR (African American) 74 ML/MIN (>60); Globulin 2.9 g/dL (1.3-3.2); Glucose 102 mg/dl (74-100); HDL Cholesterol 38 mg/dl (40-60); Potassium 4.3 mmoL/L (3.5-5.1); Sodium 142 mmol/L (136-145); Total Protein,Serum 7.4 g/dl (6.3-8.2); Triglycerides 197 mg/dl (30-150); VLDL Cholesterol 39 mg/dL (0-40)
[2024-12-18 17:47] LABS: Direct LDL Cholesterol 87.44 mg/dL (100-129)
[2024-12-18 18:07] LABS: Prostate Specific Ag Screen 1.1 ng/ml (0.0-4.0)
[2024-12-18 18:47] LABS: Hemoglobin A1C 6.1 % (4.0-6.0)
== END 2024-12-18 23:59 | disposition home or self-care (01) ==
LOC: LAB.DROPOF 12-19 08:39
PROVIDERS: PCP Internal Medicine; Visit Provider Internal Medicine
DX: E78.2 Mixed hyperlipidemia (principal); I11.0 Hypertensive heart disease with heart failure; I50.32 Chronic diastolic (congestive) heart failure; I48.20 Chronic atrial fibrillation, unspecified; E11.42 Type 2 diabetes mellitus with diabetic polyneuropathy; E11.59 Type 2 diabetes mellitus with other circulatory complications; Z12.5 Encounter for screening for malignant neoplasm of prostate
CPT/HCPCS: 80053; 80061; 83036; 85025; G0103

== ENCOUNTER 2025-06-19 12:40 | Outpatient (CLI) | payer MEDICARE, OTHER, SELFPAY ==
[2025-06-19 13:39] LABS: Hematocrit 45.7 % (42.0-52.0); Hemoglobin 15.6 g/dL (14.1-18.0); Immature Granulocytes % 0.3 %; Mean Corpuscular HGB Conc 34.1 g/dL (31.8-35.4); Mean Corpuscular Hemoglobin 31.6 pg (27.0-31.2); Mean Corpuscular Volume 92.7 fl (80-94); Nucleated Red Blood Cells % 0 %; Platelet Count 230 K/mm3 (142-424); Red Blood Count 4.93 M/mm3 (4.60-6.20); Red Cell Distribution Width-SD 42.4 fL; White Blood Count 7.4 K/mm3 (4.8-10.8)
[2025-06-19 14:06] LABS: Anion Gap 12.8 mEq/L (5-15); Blood Urea Nitrogen 10 mg/dl (9-20); Carbon Dioxide 23 mmol/L (22.0-30.0); Chloride 108 mmol/L (98-107); Creatinine,Serum 1.30 mg/dl (0.66-1.25); Estimated Glomerular Filt Rate 55 ml/min (>60); Potassium 3.8 mmoL/L (3.5-5.1); Sodium 140 mmol/L (136-145)
[2025-06-19 14:07] LABS: Alanine Aminotransferase 23 U/L (12-78); Albumin Level 4.2 g/dl (3.5-5.0); Albumin/Globulin Ratio 1.2 (1.1-1.8); Alkaline Phosphatase 103 U/L (38-126); Aspartate Amino Transferase 30 U/L (17-59); Bilirubin,Total 0.9 mg/dl (0.2-1.3); Calcium 9.3 mg/dl (8.4-10.2); Cholesterol 127 mg/dl (140-200); GFR (African American) 67 ML/MIN (>60); Globulin 3.5 g/dL (1.3-3.2); Glucose 104 mg/dl (74-100); HDL Cholesterol 34 mg/dl (40-60); Total Protein,Serum 7.7 g/dl (6.3-8.2); Triglycerides 174 mg/dl (30-150)
[2025-06-19 14:32] LABS: Hemoglobin A1C 6.3 % (4.0-6.0)
--- OUTSIDE RECORDS SUMMARY | 2025-06-20 21:01 | XMS_ITS | Clinical Summary ---
Author Organization [facility] Address [address] [place] [address] Care Team Providers Care Epic Analyst Name Role Phone Roseanne Cedeño Primary Care Provider [phone] Allergies Active Allergy Reactions Criticality Noted Date Comments Prednisone Swelling,Anaphylaxis High 12/30/2020 throat swells throat swells Rivaroxaban Unknown - Patient st ates they do not know rxn details Low 07/17/2021 Medications Eliquis 5 MG tablet TAKE 1 TABLET 2 TIMES EACH DAY 04/22/2021 Active Aspirin Low Dose 81 MG EC tablet TAKE 1 TABLET 1 TIME EACH DAY 04/22/2021 Active atorvastatin (Lipitor) 40 MG tablet TAKE 1 TABLET 1 TIME EACH DAY 04/26/2021 Active gabapentin (Neurontin) 600 MG tablet TAKE 1 TABLET 3 TIMES EACH DAY 04/23/2021 Active HYDROcodone-anel taminophen (Wellman) 10-325 MG tablet TAKE 1 TABLET EVERY 6 HOURS 04/23/2021 Active lisinopril 40 MG tablet 1 (one) time each day. 01/24/2021 Active metoprolol succinate XL (Toprol-XL) 100 MG 24 hr tablet TAKE 1 TABLET 1 TIME EACH DAY 04/22/2021 Active NIFEdipine XL (Procardia XL) 60 MG 24 hr tablet TAKE 1 TABLET 1 TIME EACH DAY. 04/14/2021 Active omeprazole (PriLOSEC) [address] capsule TAKE 1 CAPSULE 1 TIME EACH DAY 30 MINUTES BEFORE THE MORNING MEAL. 04/22/2021 Active sertraline (Zoloft) 50 MG tablet TAKE 1 TABLET 1 TIME EACH DAY. 04/22/2021 Active tiZANidine (Zanaflex) 4 MG tablet TAKE 1 TABLET EVERY 8 HOURS 04/22/2021 Active Social History Tobacco Use Types Packs/Day Years Used Date Smoking Tobacco: Never Smokeless Tobacco: Never Sex and Gender Information Value Date Recorded Sex Assigned at Not on file Legal Sex Male 7:32 PM EDT Gender Identity Not on file Sexual Orientation Not on file Plan of Treatment Health Maintenance Due Date Last Done Comments [facility]-Depression Screening 1960 [facility]-Infant/Child/Adol SDOH Screenings 1960 [facility]- SDOH Screenings 12/21/1977 [facility]-Adult SDOH Screenings 12/21/1977 [facility]-DTaP,Tdap,and Td Vaccines (1 - Tdap) 12/21/1978 CT Colonography 12/21/2004 Colonoscopy 12/21/2004 FIT-DNA 12/21/2004 FIT 12/21/2004 FOBT 12/21/2004 Sigmoidoscopy 12/21/2004 [facility]-Colorectal Cancer Screening 12/21/2004 [facility]-Zoster Vaccines (1 of 2) 12/21/2009 [facility]-Pneumococcal Vaccine: 50+ Years (2 of 2 - PCV) 06/02/2019 06/02/2018 [id number] Vaccine (4 - 2024- season) 2025 07/19/2021, 12/05/2020, 11/15/2020 [facility]-Influenza Vaccine (#1) 04/16/202506/09, 05/27/2020, 06/07/2019, Additional history exists [facility]-RSV Vaccine: 60+ Years or (1 - 1-dose 75+ series) 12/21/2034 [facility]-Diabetes: Hemoglobin A1C Discontinued 12/30/2020 HPV Vaccines Aged Out No longer eligi ble based on patient's age to complete this topic [facility]-HIB Vaccines Aged Out No longer e ligible based on patient's age to complete this topic [facility]-Hepatitis A Vaccines Aged Out No longer eligible based on patient's age to complete this topic [facility]-IPV Vaccines Aged Out No longer e ligible based on patient's age to complete this topic [facility]-Rotavirus Vaccines Aged Out No lo nger eligible based on patient's age to complete this topic Procedures Procedure Name Priority Date/Time Associated Diagnosis Comments HEMOGLOBIN A1C STAT 12/30/2020 1:16 PM EDT from Last 3 Months or Most Recently Relevant to Health Maintenance Results * Hemoglobin A1c (12/30/2020 1:16 PM EDT) Hemoglobin A1c 6.0 4.7 - 6.0 % [facility] Comment: Glycohemoglobin Reference Range, 0 years and up: 4.7 to 6.0% . HA1C Interpretive Data: Diagnosis of Diabetes: Diabetic > or = 6.5% Pre-diabetic 5.7 to 6.4% Non-diabetic < or = 5.6% . Glycemic Targets for Type I and Type II Diabetics: Non- Adults <7.0% Adults <6.0% Children and Adolescents <7.5% . Source: [place] [employer]. Standards of medical care in diabetes, 2017. Diabetes Care.2017:40 (suppl 1):S1-S135. . HbA1c assay performed by an ion-exchange chromatography method that is certified traceable to the DCCT. 12/30/2020 1:16 PM EDT 12/30/2020 1:54 PM EDT us Hiwot Mercado MD LAB BLOOD ORDERABLES Final R esult [facility]QUEST from Last 3 Months or Most Recently Relevant to Health Maintenance Care Teams Epic Analyst Relationship Specialty Start Date End Date Roseanne Cedeño PA [address] [place] [address] PCP - General 06/10/21
== END 2025-06-19 23:59 | disposition home or self-care (01) ==
LOC: LAB.DROPOF 06-20 21:00
PROVIDERS: PCP Internal Medicine; Visit Provider Internal Medicine
DX: E11.42 Type 2 diabetes mellitus with diabetic polyneuropathy (principal); E11.59 Type 2 diabetes mellitus with other circulatory complications; I11.0 Hypertensive heart disease with heart failure; I50.32 Chronic diastolic (congestive) heart failure; E78.5 Hyperlipidemia, unspecified
CPT/HCPCS: 80053; 80061; 82043; 82570; 83036; 85025